=== PATIENT | male | born 1965 | race Caucasian/White ===

== ENCOUNTER → 2021-05-18 15:23 | Outpatient (CLI) | payer BC, SELFPAY ==
[2021-05-18 16:18] LABS: Hemoglobin 13.8 g/dL (13.0-16.5); Mean Corp Hgb Conc 33.7 g/dL (32-36); Mean Corpuscular Hgb 30.3 pg (27.0-32.0); Mean Corpuscular Volume 89.9 fL (80-94); Mean Platelet Vol. 10.2 fl (6.2-12.0); Platelet Count 234 K/mm3 (150-450); RBC Distribution Width SD 42.5 fl (35.1-43.9); Red Blood Count 4.56 M/mm3 (4.6-6.2); White Blood Count 13.9 K/mm3 (4.4-11.0)
[2021-05-18 16:55] LABS: Anion Gap 6 (5-15); BUN 21 mg/dL (7-18); BUN/Creat Ratio 13.7 RATIO (10-20); Calcium,Total 8.7 mg/dL (8.5-10.1); Chloride 106 mmol/L (98-107); Creatinine, Serum 1.53 mg/dL (0.70-1.30); EST Glomerular Filtration Rate 51 mL/min (>60); Est Glom Filt Rate - Afr Amer 61 mL/min (>60); Glucose 114 mg/dL (74-106); Potassium 4.1 mmol/L (3.5-5.1); Sodium Level 139 mmol/L (136-145)
== END ==
PROVIDERS: PCP Family Medicine; Visit Provider Urology
DX: N20.0 Calculus of kidney (principal)
CPT/HCPCS: 36415; 80048; 85027

== ENCOUNTER → 2021-05-26 08:27 | Outpatient (CLI) | payer BC, SELFPAY | PROVIDERS: PCP Family Medicine; Referring Provider Urology; Visit Provider Urology | DX: Z01.810 Encounter for preprocedural cardiovascular examination (principal); N20.0 Calculus of kidney | CPT/HCPCS: 87635; 93005; C9803; U0005; U0003 ==

== ENCOUNTER → 2021-10-13 | Outpatient (CLI) | payer BC, SELFPAY ==
--- NOTE | 2021-10-13 07:03 | CT_ITS ---
EXAM: CT ABDOMEN AND PELVIS WITHOUT INTRAVENOUS CONTRAST CLINICAL INDICATION: CALCULUS OF URETER TECHNIQUE: Helically acquired images were obtained of the abdomen and pelvis without intravenous contrast. This CT exam was performed using one or more of the following dose reduction techniques: automated exposure control, adjustment of the mA and/or kV according to patient size, and/or use of iterative reconstruction technique. This report was created using [employer] report generation technology. RADIATION DOSE: CTDIvol = 24.06 mGy, DLP = 1322.32 mGy-cm COMPARISON: None. FINDINGS: LOWER THORAX: Unremarkable. Lung bases are clear. No cardiomegaly. No significant pericardial effusion. ABDOMEN: LIVER: Unremarkable. Homogeneous. GALLBLADDER AND BILE DUCTS: Unremarkable. No calcified gallstones. No gallbladder distention or wall edema. No intra- or extrahepatic biliary ductal dilation. PANCREAS: Unremarkable. No focal cystic mass. SPLEEN: Unremarkable. Normal size without focal cystic or solid mass. ADRENALS: Unremarkable. No nodules. KIDNEYS AND URETERS: There are 3 punctate intrarenal nonobstructing stones in the left kidney. No hydronephrosis or ureter stone. Tiny single nonobstructing stone in the lower pole right kidney. STOMACH AND BOWEL: Moderate stool in most of the proximal half of the colon, mild gas and stool in the distal colon. No stomach or bowel distention. No focal inflammatory change. PELVIS: APPENDIX: Normal retrocecal appendix. BLADDER: Unremarkable. REPRODUCTIVE: Unremarkable as visualized. No mass. ABDOMEN and PELVIS: INTRAPERITONEAL SPACE: Unremarkable. No ascites or other fluid collection. No free air. BONES/JOINTS: Unremarkable. No suspicious lytic or blastic abnormality. SOFT TISSUES: Moderate annular disc bulge of L4-5 and mild annular disc bulge of L5-S1 with mild facet joint hypertrophic changes at L4-S1. Mild fat-containing left inguinal hernia. VASCULATURE: Unremarkable. Abdominal aorta is non-dilated. LYMPH NODES: Unremarkable. No enlarged lymph nodes. CT/Abdomen/Pelvis without Cont IMPRESSION: 1. Bilateral nephrolithiasis. No hydronephrosis or ureter stone. 2. Small fat-containing left inguinal hernia. 3. Mild degenerative spine changes. Electronically Signed: Karely Gatica MD at 7:33 EDT Reading Location ID and State: [facility] / [place] Tel , Service support ,
== END | disposition home or self-care (01) ==
LOC: CT 07:01
PROVIDERS: PCP Family Medicine; Referring Provider Urology; Visit Provider Urology
DX: N20.1 Calculus of ureter (principal)
CPT/HCPCS: 74176

== ENCOUNTER 2025-03-12 05:48 | Inpatient (IN) | payer BC, SELFPAY ==
[2025-03-12] VITALS (45 sets, daily range): BP systolic 61–116; BP diastolic 38–101; PULSE 79–154; RESP 10–25; TEMP 36.3–37.1; O2SAT 92–98; BMI 43.2
--- NOTE | 2025-03-12 05:53 | EKG12_ITS ---
Test Reason : DYSRHYTHMIA Blood Pressure : */* mmHG Vent. Rate : 157 BPM Atrial Rate : * BPM P-R Int : * ms QRS Dur : 90 ms QT Int : 308 ms P-R-T Axes : * -27 147 degrees QTcB Int : 497 ms Critical Test Result: High HR Atrial fibrillation with rapid ventricular response Minimal voltage criteria for LVH, may be normal variant ( R in aVL ) Septal infarct , age undetermined Marked ST abnormality, possible inferolateral subendocardial injury Abnormal ECG Confirmed by SHENA CALDERON ([id number]), editor & co founder VIKA HUNTER ([id number]) on 03/15/2025 9:07:56 AM Referred By: Confirmed By: SHENA CALDERON
[2025-03-12] MEDS: 0.9% Normal Saline (1000mL) 1,000 ML 999 ML IV (05:59)
[2025-03-12 06:06] LABS: Hematocrit 43.1 % (40-54); Hemoglobin 15.0 g/dL (13.0-16.5); Immature Granulocytes Count 0.010 X10^3/uL (0.0-0.0); Mean Corp Hgb Conc 34.8 g/dL (32-36); Mean Corpuscular Volume 90.0 fL (80-94); Mean Platelet Vol. 10.6 fl (6.2-12.0); NRBC Flagged by Analyzer 0 % (0-5); Platelet Count 230 K/mm3 (150-450); RBC Distribution Width CV 12.6 % (11.6-14.6); RBC Distribution Width SD 41.7 fl (35.1-43.9); Red Blood Count 4.79 M/mm3 (4.6-6.2); White Blood Count 8.7 K/mm3 (4.4-11.0)
--- OUTSIDE RECORDS SUMMARY | 2025-03-12 06:15 | XMS RPT_ITS | CCD ---
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 inhaler due to his asthma. ALso takes zyrtec 10 mg daily.). The patient has been exposed to an individual with similar symptoms. Note for Upper respiratory infection: reviewed by [facility] 06-02-2012 Unclassified (9 sources) Cough - The onset of the cough has been gradual and has been occurring in a persistent pattern for 1 week. The course has been constant. The cough is characterized as productive of white sputum. The amount of sputum is scanty. The cough occurs all the time. The cough is not aggravated by exercise, meals or particular position. Associated symptoms include post-nasal drip, while there is no chest pain, dyspnea, edema, facial puffiness, fever, headache, nasal congestion, night sweats, sinus pain, sinus pressure, sore throat or wheezing. Note for Cough: Patient reports that he had flu like symptoms when his symptoms first started. These have now resolved apart from the cough. 08-05-2024 Results Test Name Value Interpretation Reference Range Facility TESTOSTERONE [CCL]on 024 Testosterone [Mass/Vol] 209 ng/dL Normal 193-824 [facility] Comment on above: Result Comment: A te stosterone level in the 193-320 ng/dL range with associated clinical symptoms is considered low and may indicate hypogonadism (from [facility] 2010 [id number]). Results >320 ng/dL are considered normal. [facility] [employer] [address] [place] [address] Joao Alanis III, M.D. [id number] Performed By: #### 2 [id number] #### [facility],[address] [place], [place] [id number] Laboratory - Chemistry and C hemistry - challengeon 05-02-2024 Testosterone [Mass/Vol] 209 ng/dL Normal 193 - 824 ng/dL [facility], [facility].; [facility]. COMPREHENSIVE METABOLIC PANE [facility] 04-07-2024 Albumin [Mass/Vol] 4.0 g/dL Normal 3.6-5.1 [facility] Comment on above: Performed By: #### 8 99, 30070, 7600, 5363 #### [facility] [place] [address] [employer] Preparer: Gm Johnson MD Albumin/Globulin [Mass ratio] 1.4 {ratio} Normal 1.0-2.5 [facility] Comment on above: Performed By: #### 8 99, 25893, 7600, 5363 #### [facility] [place] [address] [employer] Preparer: Gm Johnson MD ALP [Catalytic activity/Vol] 74 U/L Normal 35-144 [facility] Comment on above: Performed By: #### 8 99, 52272, 7600, 5363 #### [facility] [place] [address] [employer]riger[employer] Preparer: Gm Johnson MD ALT [Catalytic activity/Vol] 21 U/L Normal 9-46 [facility] Comment on above: Performed By: #### 8 99, 66669, 7600, 5363 #### [facility] [place] [address] [employer]riger[employer] Preparer: Gm Johnson MD AST [Catalytic activity/Vol] 20 U/L Normal 10-35 [facility] Comment on above: Performed By: #### 8 99, 58974, 7600, 5363 #### [facility] [address] [place] [address] [employer]iger[employer] Preparer: Gm Johnson MD Bilirubin [Mass/Vol] 0.6 mg/dL Normal 0.2-1.2 [facility] Comment on above: Performed By: #### 8 99, 03386, 7600, 5363 #### [facility] of [address], [address] [place] [address] [employer]iger[employer] Preparer: Gm Johnson MD BUN/CREATININE RATIO SEE NOTE: Normal 6-22 [facility] Comment on above: Result Comment: Not Reported: BUN and Creatinine are within reference range. Performed By: #### 8 99, 85624, 7600, 5363 #### [facility] of [address], [address] [place] [address] [employer] Preparer: Gm Johnson MD Calcium [Mass/Vol] 9.0 mg/dL Normal 8.6-10.3 [facility] Comment on above: Performed By: #### 8 99, 72707, 0, 5363 #### [facility] of [address], [address] [place] [address] Electric [employer]rigerator Preparer: mG Johnson MD Chloride [Moles/Vol] 107 mmol/L Normal 98-110 [facility] Comment on above: Performed By: #### 8 99, 62447, 7600, 5363 #### [facility] of [address], [address] [place] [address] [employer]rigerator Preparer: Gm Johnson MD CO2 [Moles/Vol] 25 mmol/L Normal 20-32 [facility] Comment on above: Performed By: #### 8 99, 92354, 7600, 5363 #### [facility] of [address], [address] [place] [address] Electric [employer]rigerator Preparer: Gm Johnson MD Creatinine [Mass/Vol] 0.77 mg/dL Normal 0.70-1.[address] [facility] Comment on above: Performed By: #### 8 99, 91534, 7600, 5363 #### [facility] of [address], [address] [place] [address] [employer]iger[employer] Preparer: Gm Johnson MD GFR/1.73 sq M.predicted among non-blacks MDRD (S/P/Bld) [Vol rate/Area] 104 mL/min/{1.73_m2} Normal > OR = 60 [facility] Comment on above: Performed By: #### 8 99, 86711, 7600, 5363 #### [facility] [place] [address] [employer]riger[employer] Preparer: Gm Johnson MD Globulin (S) [Mass/Vol] 2.9 g/dL Normal 1.9-3.7 [facility] Comment on above: Performed By: #### 8 99, 28420, 7600, 5363 #### [facility] [place] [address] Electric [employer]riger[employer] Preparer: Gm Johnson MD Glucose [Mass/Vol] 104 mg/dL High 65-99 [facility] Comment on above: Result Comment: Fasting reference interval For someone without known diabetes, a glucose value between 100 and 125 mg/dL is consistent with prediabetes and should be confirmed with a follow-up test. Performed By: #### 8 99, 70762, 7600, 5363 #### [facility] [place] [address] [employer]iger[employer] Preparer: Gm Johnson MD Potassium [Moles/Vol] 4.2 mmol/L Normal 3.5-5.[address] [facility] Comment on above: Performed By: #### 8 , , 7600, 5363 #### [facility] [place] [address] Electric [employer]riger[employer] Preparer: Gm Johnson MD Protein [Mass/Vol] 6.9 g/dL Normal 6.1-8.1 [facility] Comment on above: Performed By: #### 8 99, 16627, 7600, 5363 #### [facility] [address], [address] [place] [address] Electric [employer]rigerator Preparer: Gm Johnson MD Sodium [Moles/Vol] 141 mmol/L Normal 135-146 [facility] Comment on above: Performed By: #### 8 99, 44800, 7600, 5363 #### [facility] [address], [address] [place] [address] Electric Refrigerator Preparer: Gm Johnson MD Urea nitrogen [Mass/Vol] 14 mg/dL Normal 7-25 [facility] Comment on above: Performed By: #### 8 99, 12805, 7600, 5363 #### [facility] [address], [address] [place] [address] Electric [employer]rigerator Preparer: Gm Johnson MD LIPID PANEL, [address] Cholesterol [Mass/Vol] 153 mg/dL Normal <200 [facility] Comment on above: Performed By: #### 8 99, 41911, 7600, 5363 #### [facility] [address], [address] [place] [address] Electric Refrigerator Preparer: Gm Johnson MD Cholesterol in HDL [Mass/Vol] 52 mg/dL Normal > OR = 40 [facility] Comment on above: Performed By: #### 8 99, 53144, 7600, 5363 #### [facility] [address], [address] [place] [address] Electric Refrigerator Preparer: Gm Johnson MD Cholesterol in LDL [Mass/Vol] 83 mg/dL Normal [facility] Comment on above: Result Comment: Refe rence range: <100 Desirable range <100 mg/dL for primary prevention; <70 mg/dL for patients with CHD or diabetic patients with > or = 2 CHD risk factors. LDL-C is now calculated using the Taras-Gatito calculation, which is a validated novel method providing better accuracy than the Friedewald equation in the estimation of LDL-C. Taras SS et al. BATSHEVA. 2013;310(19): 4013-5843 (http://education.Bill.Forward.RedLasso/faq/YJO873) Performed By: #### 8 99, 89386, 7600, 5363 #### [facility] [address], [address] [place] [address] Electric Refrigerator Preparer: Gm Johnson MD Cholesterol.total/Cho lesterol in HDL [Mass ratio] 2.9 {ratio} Normal <5.0 [facility] Comment on above: Performed By: #### 8 , 14958, 0, 5363 #### [facility] [address], [address] [place] [address] Electric Refrigerator Preparer: Gm Johnson MD NON HDL CHOLESTEROL 101 mg/dL (calc) Normal <130 [facility] Comment on above: Result Comment: For patients with diabetes plus 1 major ASCVD risk factor, treating to a non-HDL-C goal of <100 mg/dL (LDL-C of <70 mg/dL) is considered a therapeutic option. Performed By: #### 8 , 30145, 0, 5363 #### [facility] [place] [address] [employer]riger[employer] Preparer: Gm Johnson MD Triglyceride [Mass/Vol] 86 mg/dL Normal <150 [facility] Comment on above: Performed By: #### 8 , 26563, 0, 5363 #### [facility] [place] [address] Electric Refrigerator Preparer: Gm Johnson MD PSA, TOTALon 04-07-2024 PSA, TOTAL 0.34 ng/mL Normal < OR = 4.00 [facility] Comment on above: Result Comment: The total PSA value from this assay system is standardized against the WHO standard. The test result will be approximately 20% lower when compared to the equimolar-standardized total PSA (Lourdes Malone). Comparison of serial PSA results should be interpreted with this fact in mind. This test was performed using the Siemens chemiluminescent method. Values obtained from different assay methods cannot be used interchangeably. PSA levels, regardless of value, should not be interpreted as absolute evidence of the presence or absence of disease. Performed By: #### 8 , 46711, 0, 5363 #### [facility] [place] [address] [employer]riger[employer] Preparer: Gm Johnson MD TSHon 04-07-2024 TSH Qn 2.68 m[IU]/L Normal 0.40-4.50 [facility] Comment on above: Performed By: #### 8 99, 44430, 4917, 7808 #### [facility] [place] [address] [facility], [address] [place] [address] Electric Refrigerator Preparer: Gm Johnson MD Laboratory - Chemistry and C hemistry - challengeon 04-06-2024 Albumin [Mass/Vol] 4.0 g/dL Normal 3.6 - 5.1 g/dL [facility] [employer] Albumin/Globulin [Mass ratio] 1.4 {ratio} Normal 1.0 - 2.5 [facility] [employer] ALP [Catalytic activity/Vol] 74 U/L Normal 35 - 144 U/L [facility], [facility].; [employer] ALT [Catalytic activity/Vol] 21 U/L Normal 9 - 46 U/L [employer] [facility] [employer] AST [Catalytic activity/Vol] 20 U/L Normal 10 - 35 U/L [employer] [employer] Bilirubin [Mass/Vol] 0.6 mg/dL Normal 0.2 - 1 .2 mg/dL [employer] [employer] Calcium [Mass/Vol] 9.0 mg/dL Normal 8.6 - 10. 3 mg/dL [employer] [facility] [employer] Chloride [Moles/Vol] 107 mmol/L Normal 98 - 11 0 mmol/L [facility], [facility] [employer] Cholesterol [Mass/Vol] 153 mg/dL Normal [employer] [employer] Cholesterol in HDL [Mass/Vol] 52 mg/dL Normal [employer] [employer] Cholesterol in LDL [Mass/Vol] 83 mg/dL Normal [employer] [employer] CO2 [Moles/Vol] 25 mmol/L Normal 20 - 32 mmol/L [facility], [facility] [employer] Creatinine [Mass/Vol] 0.77 mg/dL Normal 0.70 - 1.30 mg/dL [facility]; [facility], [facility] GFR/1.73 sq M.predicted among non-blacks MDRD (S/P/Bld) [Vol rate/Area] 104 mL/min/{1.73_m2} Normal [facility]; [facility], [facility] Glucose [Mass/Vol] 104 mg/dL Abnormal 65 - 99 mg/dL [facility]; [facility], [facility] Potassium [Moles/Vol] 4.2 mmol/L Normal 3.5 - 5.3 mmol/L [facility]; [facility], [facility] Protein [Mass/Vol] 6.9 g/dL Normal 6.1 - 8.1 g/dL [facility]; [facility], [facility] Sodium [Moles/Vol] 141 mmol/L Normal 135 - 146 mmol/L [facility]; [facility], [facility] Triglyceride [Mass/Vol] 86 mg/dL Normal [facility]; [facility], [facility] TSH Qn 2.68 m[IU]/L Normal 0.40 - 4.50 {mIU/L} [facility]; [facility], [facility] Urea nitrogen [Mass/Vol] 14 mg/dL Normal 7 - 25 mg/dL [facility]; [facility], [facility] No Panel Informationon 04-06 BUN/CREATININE RATIO SEE NOTE: Normal 6 - 22 [facility]; [facility], [facility] CHOL/HDLC RATIO 2.9 Normal [facility]; [facility], [facility] GLOBULIN 2.9 Normal 1.9 - 3.7 [facility]; [facility], [facility] NON HDL CHOLESTEROL 101 Normal [facility]; [facility], [facility] PSA, TOTAL 0.34 ng/mL Normal [facility]; [facility], [facility] Laboratory - Chemistry and C hemistry - challengeon 03-15-2023 Albumin [Mass/Vol] 4.0 g/dL Normal 3.6 - 5.1 g/dL [facility]; [facility]. Albumin/Globulin [Mass ratio] 1.5 {ratio} Normal 1.0 - 2.5 [facility]. ALP [Catalytic activity/Vol] 69 U/L Normal 35 - 144 U/L [facility].; [facility], [facility]. ALT [Catalytic activity/Vol] 19 U/L Normal 9 - 46 U/L [facility].; [facility], [facility]. AST [Catalytic activity/Vol] 19 U/L Normal 10 - 35 U/L [facility].; [facility]. Bilirubin [Mass/Vol] 0.5 mg/dL Normal 0.2 - 1 .2 mg/dL [facility].; [facility], [facility]. Calcium [Mass/Vol] 8.9 mg/dL Normal 8.6 - 10. 3 mg/dL [facility].; [facility], [facility]. Chloride [Moles/Vol] 104 mmol/L Normal 98 - 11 0 mmol/L [facility].; [employer], [facility]. Cholesterol [Mass/Vol] 152 mg/dL Normal [facility].; [employer], [facility]. Cholesterol in HDL [Mass/Vol] 56 mg/dL Normal [facility].; [facility], [facility]. Cholesterol in LDL [Mass/Vol] 83 mg/dL Normal [facility].; [employer], [facility]. CO2 [Moles/Vol] 26 mmol/L Normal 20 - 32 mmol/L [facility].; [facility]. Creatinine [Mass/Vol] 0.83 mg/dL Normal 0.70 - 1.30 mg/dL [facility].; [employer] [facility], [facility]. GFR/1.73 sq M.predicted among non-blacks MDRD (S/P/Bld) [Vol rate/Area] 103 mL/min/{1.73_m2} Normal [facility].; [employer], [facility]. Glucose [Mass/Vol] 102 mg/dL Abnormal 65 - 99 mg/dL [facility].; [facility], [facility]. Potassium [Moles/Vol] 4.3 mmol/L Normal 3.5 - 5.3 mmol/L [facility]; [facility] Protein [Mass/Vol] 6.7 g/dL Normal 6.1 - 8.1 g/dL [facility]; [facility] Sodium [Moles/Vol] 139 mmol/L Normal 135 - 146 mmol/L [facility]; [facility] Triglyceride [Mass/Vol] 45 mg/dL Normal [facility]; [facility] TSH Qn 2.40 m[IU]/L Normal 0.40 - 4.50 {mIU/L} [facility]; [facility] Urea nitrogen [Mass/Vol] 24 mg/dL Normal 7 - 25 mg/dL [facility]; [facility] No Panel Informationon 03-15 BUN/CREATININE RATIO SEE NOTE: Normal [facility]; [facility] CHOL/HDLC RATIO 2.7 Normal [facility]; [facility] GLOBULIN 2.7 Normal 1.9 - 3.7 [facility]; [facility] NON HDL CHOLESTEROL 96 Normal [facility]; [facility] Laboratory - Chemistry and C hemistry - challengeon 03-19-2022 TSH Qn 2.76 m[IU]/L Normal 0.40 - 4.50 {mIU/L} [facility]; [facility] Abdomen/Pelvis without Conto n 10-13-2021 Abdomen/Pelvis without Cont [facility] [address] [place] [address] Abdomen/Pelvis without Cont MR#: [id number] Acct: [id number] Name: PAULINA WESTBROOK Rep #: [id number] : 1965 M 55 From: Karely Gatica MD PCP: Dr. Nataliia Rollins MD Status: REG CLI Study: Abdomen/Pelvis without Cont Date of Exam: 09/16 03/08 Exam# [id number] Ordering Dr: Patrick Thapa MD EXAM: CT ABDOMEN AND PELVIS WITHOUT INTRAVENOUS CONTRAST CLINICAL INDICATION: CALCULUS OF URETER TECHNIQUE: Helically acquired images were obtained of the abdomen and pelvis without intravenous contrast. This CT exam was performed using one or more of the following dose reduction techniques: automated exposure control, adjustment of the mA and/or kV according to patient size, and/or use of iterative reconstruction technique. This report was created using Parachute report generation technology. RADIATION DOSE: CTDIvol = 24.06 mGy, DLP = 1322.32 mGy-cm COMPARISON: None. FINDINGS: LOWER THORAX: Unremarkable. Lung bases are clear. No cardiomegaly. No significant pericardial effusion. ABDOMEN: LIVER: Unremarkable. Homogeneous. GALLBLADDER AND BILE DUCTS: Unremarkable. No calcified gallstones. No gallbladder distention or wall edema. No intra- or extrahepatic biliary ductal dilation. PANCREAS: Unremarkable. No focal cystic mass. SPLEEN: Unremarkable. Normal size without focal cystic or solid mass. ADRENALS: Unremarkable. No nodules. KIDNEYS AND URETERS: There are 3 punctate intrarenal nonobstructing stones in the left kidney. No hydronephrosis or ureter stone. Tiny single nonobstructing stone in the lower pole right kidney. STOMACH AND BOWEL: Moderate stool in most of the proximal half of the colon, mild gas and stool in the distal colon. No stomach or bowel distention. No focal inflammatory change. PELVIS: APPENDIX: Normal retrocecal appendix. BLADDER: Unremarkable. REPRODUCTIVE: Unremarkable as visualized. No mass. ABDOMEN and PELVIS: INTRAPERITONEAL SPACE: Unremarkable. No ascites or other fluid collection. No free air. BONES/JOINTS: Unremarkable. No suspicious lytic or blastic abnormality. SOFT TISSUES: Moderate annular disc bulge of L4-5 and mild annular disc bulge of L5-S1 with mild facet joint hypertrophic changes at L4-S1. Mild fat-containing left inguinal hernia. VASCULATURE: Unremarkable. Abdominal aorta is non-dilated. LYMPH NODES: Unremarkable. No enlarged lymph nodes. CT/Abdomen/Pelvis without Cont IMPRESSION: 1. Bilateral nephrolithiasis. No hydronephrosis or ureter stone. 2. Small fat-containing left inguinal hernia. 3. Mild degenerative spine changes. Electronically Signed: Karely Gatica MD at 7:33 EDT , CC: Dr. Patrick Thapa MD; Dr. Nataliia Rollins MD [employer] Spike Assembler: Signed Normal [facility] .Auto Diffon 08-08-2021 Basophil, Absolute 0.00 10 3/mcL Normal 0.00-0.27 [facility] ([place]) Comment on above: Performed By: #### C BC, ADIFF, ANEU, BMP, GFR #### [address] [address] Basophils/100 WBC (Bld) 0.7 % Normal 0.0-2.5 [facility] ([place]) Comment on above: Performed By: #### C BC, ADIFF, ANEU, BMP, GFR #### [address] [address] Eosinophil, Absolute 0.30 10 3/mcL Normal 0.00-0.65 A [facility] ([place]) Comment on above: Performed By: #### C BC, ADIFF, ANEU, BMP, GFR #### [address] [address] Eosinophils/100 WBC (Bld) 4.7 % Normal 0.0-6.0 [facility] ([place]) Comment on above: Performed By: #### C BC, ADIFF, ANEU, BMP, GFR #### [address] [address] Lymphocyte, Absolute 1.40 10 3/mcL Normal 0.90-4.32 A [facility] ([place]) Comment on above: Performed By: #### C BC, ADIFF, ANEU, BMP, GFR #### [address] [address] Lymphocytes/100 WBC (Bld) 23.0 % Normal 20.0-40.0 [facility] ([place]) Comment on above: Performed By: #### C BC, ADIFF, ANEU, BMP, GFR #### [address] [address] Monocyte, Absolute 0.70 10 3/mcL Normal 0.09-1.40 [facility] ([place]) Comment on above: Performed By: #### C BC, ADIFF, ANEU, BMP, GFR #### [address] [address] Monocytes/100 WBC (Bld) 10.9 % Normal 2.0-13.0 [facility] ([place]) Comment on above: Performed By: #### C BC, ADIFF, ANEU, BMP, GFR #### [address] [address] Neutrophils/100 WBC (Bld) 60.7 % Normal 50.0-75.0 [facility] ([place]) Comment on above: Performed By: #### C BC, ADIFF, ANEU, BMP, GFR #### [address] [address] .GFRon 08-08-2021 GFR Non- >60 Normal [facility] ([place]) Comment on above: Result Comment: GFR Population mean for , Non- Americans Ages 20-29 = 116 mL/min/1.73 sq.m. Ages 30-39 = 107 mL/min/1.73 sq.m. Ages 40-49 = 99 mL/min/1.73 sq.m. Ages 50-59 = 93 mL/min/1.73 sq.m. Ages 60-69 = 85 mL/min/1.73 sq.m. Ages 70+ = 75 mL/min/1.73 sq.m. Chronic Kidney Disease: Less than 60 mL/min/1.73 square meters End Stage Renal Disease: Less than 15 mL/min/1.73 square meters Performed By: #### C BC, ADIFF, ANEU, BMP, GFR #### [address] [address] GFR >60 Normal [facility] ([place]) Comment on above: Result Comment: GFR Population mean for , Non- Americans Ages 20-29 = 116 mL/min/1.73 sq.m. Ages 30-39 = 107 mL/min/1.73 sq.m. Ages 40-49 = 99 mL/min/1.73 sq.m. Ages 50-59 = 93 mL/min/1.73 sq.m. Ages 60-69 = 85 mL/min/1.73 sq.m. Ages 70+ = 75 mL/min/1.73 sq.m. Chronic Kidney Disease: Less than 60 mL/min/1.73 square meters End Stage Renal Disease: Less than 15 mL/min/1.73 square meters Performed By: #### C BC, ADIFF, ANEU, BMP, GFR #### [address] [address] .NEUABSon 08-08-2021 Neutrophil, Absolute 3.70 10 3/mcL Normal 2.25-8.10 A [facility] ([place]) Comment on above: Performed By: #### C BC, ADIFF, ANEU, BMP, GFR #### [address] [address] BMPon 08-08-2021 BUN/Creatinine Ratio 22.0 ratio Normal 10.0-22.0 [facility] ([place]) Comment on above: Performed By: #### C BC, ADIFF, ANEU, BMP, GFR #### [place] [address] Calcium [Mass/Vol] 9.2 mg/dL Normal 8.4-10.1 [facility] ([place]) Comment on above: Result Comment: No te - New Reference Range in effect 20 Performed By: #### C BC, ADIFF, ANEU, BMP, GFR #### [address] [address] Chloride [Moles/Vol] 104 mmol/L Normal 98-110 [facility] ([place]) Comment on above: Performed By: #### C BC, ADIFF, ANEU, BMP, GFR #### [address] [address] CO2 [Moles/Vol] 32 mmol/L Normal 22-32 [facility] ([place]) Comment on above: Performed By: #### C BC, ADIFF, ANEU, BMP, GFR #### [address] [address] Creatinine [Mass/Vol] 0.82 mg/dL Normal 0.60-1.40 [facility] ([place]) Comment on above: Performed By: #### C BC, ADIFF, ANEU, BMP, GFR #### [address] [address] Electrolyte Balance 3.0 mEq/L Low 4.0-15.0 [facility] ([place]) Comment on above: Performed By: #### C BC, ADIFF, ANEU, BMP, GFR #### [address] [address] Glucose [Mass/Vol] 99 mg/dL Normal 70-110 [facility] ([place]) Comment on above: Performed By: #### C BC, ADIFF, ANEU, BMP, GFR #### [place] [id number] Potassium [Moles/Vol] 4.5 mmol/L Normal 3.5-5.0 [facility] ([place]) Comment on above: Performed By: #### C BC, ADIFF, ANEU, BMP, GFR #### [place] [id number] Sodium [Moles/Vol] 139 mmol/L Normal 136-145 [facility] ([place]) Comment on above: Performed By: #### C BC, ADIFF, ANEU, BMP, GFR #### [address] [address] Urea nitrogen [Mass/Vol] 18.0 mg/dL Normal 8.0-22.0 [facility] ([place]) Comment on above: Performed By: #### C BC, ADIFF, ANEU, BMP, GFR #### [address] [address] CBCon 08-08-2021 Erythrocyte distribution width (RBC) [Ratio] 13.6 % Normal 11.5-15.5 [facility] ([place]) Comment on above: Performed By: #### C BC, ADIFF, ANEU, BMP, GFR #### [address] [address] Hematocrit (Bld) [Volume fraction] 43.4 % Normal 40.0-52.0 [facility] ([place]) Comment on above: Performed By: #### C BC, ADIFF, ANEU, BMP, GFR #### [place] [address] Hgb 14.7 G/dL Normal 13.0-17.5 [facility] ([place]) Comment on above: Performed By: #### C BC, ADIFF, ANEU, BMP, GFR #### [place] [address] MCH (RBC) [Entitic mass] 30.3 pg Normal 27.0-33.0 [facility] ([place]) Comment on above: Performed By: #### C BC, ADIFF, ANEU, BMP, GFR #### [place] [address] MCHC 33.9 G/dL Normal 32.0-36.0 [facility] ([place]) Comment on above: Performed By: #### C BC, ADIFF, ANEU, BMP, GFR #### [place] [address] MCV (RBC) [Entitic vol] 89.3 fL Normal 81.0-100.0 [facility] ([place]) Comment on above: Performed By: #### C BC, ADIFF, ANEU, BMP, GFR #### [place] [address] Platelet 243 10 3/mcL Normal 150-450 [facility] ([place]) Comment on above: Performed By: #### C BC, ADIFF, ANEU, BMP, GFR #### [place] [address] Platelet mean volume (Bld) [Entitic vol] 8.5 fL Normal 6.4-10.5 [facility] ([place]) Comment on above: Performed By: #### C BC, ADIFF, ANEU, BMP, GFR #### [place] [address] RBC 4.86 10 6/mcL Normal 4.50-6.00 [facility] ([place]) Comment on above: Performed By: #### C BC, ADIFF, ANEU, BMP, GFR #### [place] [address] WBC 6.10 10 3/mcL Normal 4.50-10.80 [facility] ([place]) Comment on above: Performed By: #### C BC, BARBIE, ANEU, BMP, GFR #### [facility] [address] [place], [place] [address] COVID 19, JESSICA WCH(RT COLLECT )on 05-26-2021 SARS-CoV-2 (COVID-19) RNA JESSICA+probe Ql (Unsp spec) Not detected Normal Not Detect [facility] Comment on above: Result Comment: Norm al Reference Range: Not Detected Method:(RT-PCR) real-time reverse transcriptase PCR [employer] Instrument *The Food and Drug Administration (FDA) has issued an Emergency Use Authorization (EAU) for the [employer] SARS-CoV-2 Assay for the rapid detection of the virus that causes COVID-19. This test has been validated, but the FDAs independent review of this validation is pending. *Negative results do not preclude infection and should not be used as the sole basis for treatment or patient management. Optimum specimen types and timing for peak viral levels during infections caused by SARS-CoV-2 have not been determined. Collection of multiple specimens from the same patient may be necessary to detect the virus. The possibility of a false negative result should be considered if the patient has clinical presentation or has had recent exposure. Performed By: #### L 3400.2405 #### [facility] [address] [place], [address] Basic Metabolic Profile (BMP )on 05-18-2021 BUN/CRE 13.7 RATIO Normal 10-20 [facility] Comment on above: Order Comment: CBC Performed By: #### L 100.0500, L500.2500 #### [facility] [address] [place], [address] CA,Total 8.7 mg/dL Normal 8.5-10.1 [facility] Comment on above: Order Comment: CBC Performed By: #### L 100.0500, L500.2500 #### [facility] [address] [place], [address] Chloride [Moles/Vol] 106 mmol/L Normal 98-107 [facility] Comment on above: Order Comment: CBC Performed By: #### L 100.0500, L500.2500 #### [facility] [address] [place], [address] CO2 [Moles/Vol] 27.0 mmol/L Normal 21.0-32.0 [facility] Comment on above: Order Comment: CBC Performed By: #### L 100.0500, L500.2500 #### [facility] [address] [place], [address] Creatinine [Mass/Vol] 1.53 mg/dL High 0.70-1.30 [facility] Comment on above: Order Comment: CBC Result Comment: The validity of the calculated GFR GFRAA in patients over 70 years has not been determined. Clinical correlation is essential. Performed By: #### L 100.0500, L500.2500 #### [facility] [address] [place], [address] EST GFR - AA 61 mL/min Normal >60 [facility] Comment on above: Order Comment: CBC Result Comment: Afri can Andorran GFR Calc Performed By: #### L 100.0500, L500.2500 #### [facility] [address] [place], [address] GAP 6 Normal 5-15 [facility] Comment on above: Order Comment: CBC Performed By: #### L 100.0500, L500.2500 #### [facility] [address] [place], [address] GFR/1.73 sq M.predicted among non-blacks MDRD (S/P/Bld) [Vol rate/Area] 51 mL/min/{1.73_m2} Low >60 [facility] Comment on above: Order Comment: CBC Result Comment: Non- GFR Calc Performed By: #### L 100.0500, L500.2500 #### [facility] [address] [place], [address] Glucose [Mass/Vol] 114 mg/dL High 74-106 [facility] Comment on above: Order Comment: CBC Result Comment: Fast ing Glucose result from 100 to 125 mg/dL suggests IMPAIRED HOMEOSTASIS per A.D.A. criteria. Please note revised GLUCOSE reference range effective 2017. Performed By: #### L 100.0500, L500.2500 #### [facility] [address] [place], [address] Potassium [Moles/Vol] 4.1 mmol/L Normal 3.5-5.1 [facility] Comment on above: Order Comment: CBC Performed By: #### L 100.0500, L500.2500 #### [facility] [address] [place], [address] Sodium [Moles/Vol] 139 mmol/L Normal 136-145 [facility] Comment on above: Order Comment: CBC Performed By: #### L 100.0500, L500.2500 #### [facility] [address] [place], [address] Urea nitrogen [Mass/Vol] 21 mg/dL High 7-18 [facility] Comment on above: Order Comment: CBC Performed By: #### L 100.0500, L500.2500 #### [facility] [address] [place], [address] CBC-Complete Blood Cnt No Di ffon 05-18-2021 Erythrocyte distribution width (RBC) [Ratio] 13.0 % Normal 11.6-14.6 [facility] Comment on above: Performed By: #### L 100.0500, L500.2500 #### [facility] [address] [place], [address] Hematocrit (Bld) [Volume fraction] 41.0 % Normal 40-54 [facility] Comment on above: Performed By: #### L 100.0500, L500.2500 #### [facility] [address] [place], [address] Hemoglobin (Bld) [Mass/Vol] 13.8 g/dL Normal 13.0-16.5 [facility] Comment on above: Performed By: #### L 100.0500, L500.2500 #### [facility] [address] [place], [address] MCH (RBC) [Entitic mass] 30.3 pg Normal 27.0-32.0 [facility] Comment on above: Performed By: #### L 100.0500, L500.2500 #### [facility] [address] [place], [address] MCHC (RBC) [Mass/Vol] 33.7 g/dL Normal 32-36 [facility] Comment on above: Performed By: #### L 100.0500, L500.2500 #### [facility] [address] [place], [address] MCV (RBC) [Entitic vol] 89.9 fL Normal 80-94 [facility] Comment on above: Performed By: #### L 100.0500, L500.2500 #### [facility] [address] [place], [address] Platelet mean volume (Bld) [Entitic vol] 10.2 fL Normal 6.2-12.0 [facility] Comment on above: Performed By: #### L 100.0500, L500.2500 #### [facility] [address] [place], [address] Platelets (Bld) [#/Vol] 234 10*3/uL Normal 150-450 [facility] Comment on above: Performed By: #### L 100.0500, L500.2500 #### [facility] [address] [place], [address] RBC (Bld) [#/Vol] 4.56 10*6/uL Low 4.6-6.2 [facility] Comment on above: Performed By: #### L 100.0500, L500.2500 #### [facility] [address] [place], [address] RDW SD 42.5 fl Normal 35.1-43.9 [facility] Comment on above: Performed By: #### L 100.0500, L500.2500 #### [facility] [address] [place], [address] WBC (Bld) [#/Vol] 13.9 10*3/uL High 4.4-11.0 [facility] Comment on above: Performed By: #### L 100.0500, L500.2500 #### [facility] [address] [place], [address] Laboratory - Chemistry and C hemistry - challengeon 05-16-2021 Bilirubin Ql (U) Negative Normal [facility] [employer].; [employer], [email or web address]. Ketones Ql (U) Negative Normal [facility].; [employer] [facility], [email or web address]. pH (U) 7.0 [pH] Normal [facility].; [employer], [email or web address]. Specific gravity (U) [Rel density] 1.020 Normal [employer] [employer] [facility].; [employer]. Urobilinogen Qn (U) 1.0 mg/dL Normal [facility] Arrogene [facility].; [employer], [email or web address]. Laboratory - Hematology and Cell countson 05-16-2021 Hemoglobin Ql (U) moderate Abnormal [employer] [facility].; [employer]. Laboratory - Specimen inform ationon 05-16-2021 Appearance (U) clear Normal [facility].; [employer], [email or web address]. Color (U) yellow Normal [employer] Laboratory - Urinalysison Glucose Test strip (U) [Mass/Vol] Negative Normal [employer]. Leukocyte esterase Test strip Ql (U) Negative Normal [employer].; [employer]. Nitrite Ql (U) Negative Normal [facility].; [employer] Protein Ql (U) trace Normal [facility].; [employer], [email or web address]. Laboratory - Chemistry and C hemistry - challengeon 11-25-2020 TSH Qn 1.65 m[IU]/L Normal 0.40 - 4.50 {mIU/L} [employer] Final Surgical Pathology Rep [facility] 11-09-2020 Final Surgical Pathology Report . 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 B) COLON, 60 CM, BIOPSY: HYPERPLASTIC POLYP. C) CECUM, BIOPSY: HYPERPLASTIC POLYP. COMMENT: [facility] - A# [id number] CLINICAL INFORMATION: SCREEN FOR COLON CANCER SPECIMEN: A COLON BIOPSY @ 45 CM B COLON BIOPSY @ 60 CM C CECUM BIOPSY GROSS DESCRIPTION: A. Received in formalin, labeled with the patients name, Case #[id number], and 45 cm contents of the container are filtered into a filter bag to reveal 2 possible tissue fragments measuring 0.2 to 0.3 cm admixed with a food material. TS -1 B. Received in formalin labeled 60 cm are 2 gilmore tissue fragments measuring 0.1 and 0.2 cm. TS -1. C. Received in formalin labeled cecum are 2 gilmore tissue fragments both measuring 0.3 cm. TS -1. Dictated by KATHIA CR MICROSCOPIC DESCRIPTION: A,B&C) Slides reviewed. Electronically Signed by Pathology Report verified by [facility] Electronically signed by CHRIS CONCEPCION MD Sign out Date: 11/09/2020 08:35 Performing Lab: [facility], [address] [place] [address] ([place]) Comment on above: Performed By: #### S PFR #### [place] [address] Laboratory - Chemistry and C hemistry - challengeon 08-12-2020 Albumin [Mass/Vol] 4.4 g/dL Normal 3.6 - 5.1 g/dL [facility], Inc[employer] Albumin/Globulin [Mass ratio] 1.5 {ratio} Normal 1.0 - 2.5 [facility], [facility].; [facility], Inc[employer] ALP [Catalytic activity/Vol] 65 U/L Normal 35 - 144 U/L [facility], [facility].; [employer] [facility], Inc[employer] ALT [Catalytic activity/Vol] 27 U/L Normal 9 - 46 U/L [facility], [facility].; [employer] [facility], Inc[employer] AST [Catalytic activity/Vol] 23 U/L Normal 10 - 35 U/L [facility], [facility].; [employer] [facility], Inc[employer] Bilirubin [Mass/Vol] 0.7 mg/dL Normal 0.2 - 1 .2 mg/dL [facility], [facility].; [employer] Calcium [Mass/Vol] 9.2 mg/dL Normal 8.6 - 10. 3 mg/dL [facility], [facility].; [employer] Chloride [Moles/Vol] 106 mmol/L Normal 98 - 11 0 mmol/L [facility], [facility].; [employer] Cholesterol [Mass/Vol] 225 mg/dL Abnormal [facility], [facility].; [employer] Cholesterol in HDL [Mass/Vol] 49 mg/dL Normal [facility] [employer] [facility], Inc.; [employer], [employer] Cholesterol in LDL [Mass/Vol] 153 mg/dL Abnormal [facility] [employer] [facility], [facility].; [employer] CO2 [Moles/Vol] 27 mmol/L Normal 20 - 32 mmol/L [facility], [facility].; [employer] Creatinine [Mass/Vol] 0.77 mg/dL Normal 0.70 - 1.33 mg/dL [facility], [facility].; [employer] GFR/1.73 sq M.predicted among blacks MDRD (S/P/Bld) [Vol rate/Area] 120 mL/min/{1.73_m2} Normal [facility]; [facility] Glucose [Mass/Vol] 85 mg/dL Normal 65 - 99 mg/dL [facility]; [facility], [facility] Potassium [Moles/Vol] 4.3 mmol/L Normal 3.5 - 5.3 mmol/L [facility]; [facility], [facility] Protein [Mass/Vol] 7.3 g/dL Normal 6.1 - 8.1 g/dL [facility]; [facility], [facility] Sodium [Moles/Vol] 140 mmol/L Normal 135 - 146 mmol/L [facility]; [facility], [facility] Triglyceride [Mass/Vol] 116 mg/dL Normal [facility]; [facility], [facility] TSH Qn 6.44 m[IU]/L Abnormal 0.40 - 4.50 {mIU/L} [facility]; [facility], [facility] Urea nitrogen [Mass/Vol] 16 mg/dL Normal 7 - 25 mg/dL [facility]; [facility], [facility] No Panel Informationon 08-12 BUN/CREATININE RATIO NOT APPLICABLE Normal 6 - 22 [facility]; [facility], [facility] CHOL/HDLC RATIO 4.6 Normal [facility]; [facility], [facility] eGFR NON-AFR. MONTENEGRIN 104 Normal [facility]; [facility], [facility] GLOBULIN 2.9 Normal 1.9 - 3.7 [facility]; [facility], [facility] NON HDL CHOLESTEROL 176 Abnormal [facility]; [facility], [facility] TESTOSTERONE, FREE 30.3 pg/mL Abnormal 46.0 - 22 4.0 pg/mL [facility]; [facility], [facility] Laboratory - Chemistry and C hemistry - challengeon 11-26-2017 Cholesterol [Mass/Vol] 197 mg/dL Normal 0 - 200.0 mg/dL [facility]; [facility], Inc[employer] Cholesterol in HDL [Mass/Vol] 37 mg/dL Normal 30.0 - 40.0 mg/dL [facility]; [facility] Cholesterol in LDL [Mass/Vol] 138 mg/dL Abnormal 50.0 - 130.0 mg/dL [facility].; [facility] Cholesterol non HDL [Mass/Vol] 160 mg/dL Normal [facility]; [facility] Cholesterol.total/Cho lesterol in HDL [Mass ratio] 3.8 {ratio} Normal 0 - 5.0 [facility]; [facility] Glucose Glucometer (BldC) [Moles/Vol] 94 Normal 60 - 120 [facility]; [facility] Triglyceride [Mass/Vol] 114 mg/dL Normal 40 - 150 mg/dL [facility]; [facility] Laboratory - Microbiology an d Antimicrobial susceptibilityon 06-02-2012 FLUAV Ag IA Ql (Throat) Negative Normal [facility]; [facility] Vital Signs Date Time Vital Sign Value Performing Clinician Facility 10-12-2024 08:55-0400 Body height 190.5 cm Susan Fisher LPN [facility]; [facility] 10-12-2024 08:55-0400 Body mass index (BMI) [Ratio] 42.5 kg/m2 Susan Fisher LPN [facility]; [facility] 10-12-2024 08:55-0400 Body surface area Derived from formula 2.75 m2 Susan Fisher LPN [facility]; [facility] 10-12-2024 08:55-0400 Body weight 154.22 kg Susan Fisher LPN [facility]; [facility] 10-12-2024 08:55-0400 Diastolic blood pressure 69 mm[Hg] Susan Fisher LPN [facility]; [facility] [employer] [facility] Comment on above: Patient Position: Sitting; Cuff Location : Left Arm; Cuff Size: Standard 10-12-2024 08:55-0400 Heart rate 76 /min Susan Fisher LPN [facility].; [employer]. Comment on above: Pattern: Regular 10-12-2024 08:55-0400 Systolic blood pressure 106 mm[Hg] Susan Fisher LPN [facility].; [employer]. Comment on above: Patient Position: Sitting; Cuff Location : Left Arm; Cuff Size: Standard 08-05-2024 15:06-0500 Body height 190.5 cm Valarie Villegas MA [facility].; [employer]. 08-05-2024 15:06-0500 Body mass index (BMI) [Ratio] 43.78 kg/m2 Valarie Villegas MA [facility].; [employer]. 08-05-2024 15:06-0500 Body surface area Derived from formula 2.78 m2 Valarie Villegas MA [facility].; [employer]. 08-05-2024 15:06-0500 Body weight 158.87 kg Valarie Villegas MA [facility].; [employer]. 08-05-2024 15:06-0500 Diastolic blood pressure 80 mm[Hg] Valarie Villegas MA [employer] [facility].; [employer]. Comment on above: Patient Position: Sitting; Cuff Location : Left Arm; Cuff Size: Standard 08-05-2024 15:06-0500 Heart rate 99 /min Valarie Villegas MA [facility].; [employer]. Comment on above: Pattern: Regular 08-05-2024 15:06-0500 Inhaled oxygen concentration 21 % Valarie Villegas MA [employer] [facility].; [employer]. Comment on above: Room air 08-05-2024 15:06-0500 SaO2% (BldA) [Mass fraction] 98 % Valarie Villegas MA [facility] [employer] [facility].; [employer]. 08-05-2024 15:06-0500 Systolic blood pressure 139 mm[Hg] Valarie Villegas MA [employer] [facility].; [employer]. Comment on above: Patient Position: Sitting; Cuff Location : Left Arm; Cuff Size: Standard 04-13-2024 09:03-0400 Body height 190.5 cm Lui Schmidt ERIC [facility], [facility] 04-13-2024 09:03-0400 Body mass index (BMI) [Ratio] 42.37 kg/m2 Lui Schmidt CREDIT RISK MODELER [facility], [facility].; [employer] [facility], Inc[employer] 04-13-2024 09:03-0400 Body surface area Derived from formula 2.75 m2 Lui Schmidt CREDIT RISK MODELER [facility], Inc.; [employer] [facility], [facility]. 04-13-2024 09:03-0400 Body weight 153.77 kg Lui Schmidt CREDIT RISK MODELER [facility], [facility].; [employer] [facility], Inc[facility] 04-13-2024 09:03-0400 Diastolic blood pressure 67 mm[Hg] Lui Schmidt CREDIT RISK MODELER [facility], [facility].; [employer] [facility], Inc[facility] Comment on above: Patient Position: Sitting; Cuff Location : Left Arm; Cuff Size: Standard 04-13-2024 09:03-0400 Heart rate 77 /min Lui Schmidt CREDIT RISK MODELER [facility], [facility].; [employer] [facility], Inc[facility] Comment on above: Pattern: Regular 04-13-2024 09:03-0400 Systolic blood pressure 110 mm[Hg] Lui Schmidt CREDIT RISK MODELER [facility], [facility].; [employer] [facility], [facility] Comment on above: Patient Position: Sitting; Cuff Location : Left Arm; Cuff Size: Standard 10-08-2023 07:45-0400 Body height 190.5 cm Gabriela Tripp Marnie CREDIT RISK MODELER [facility], [facility].; [employer] [facility], [facility] 10-08-2023 07:45-0400 Body mass index (BMI) [Ratio] 44.12 kg/m2 Jillian Marnie CR[employer]ISK [employer]DELER [facility].; [employer] [facility], Inc[facility] 10-08-2023 07:45-0400 Body surface area Derived from formula 2.79 m2 Jillian Stuckey CR[employer]K [employer]DELER [facility], [facility].; [employer] [facility], Inc[facility] 10-08-2023 07:45-0400 Body weight 160.12 kg Jillian Stuckey [facility], [facility].; [facility], [facility]. 10-08-2023 07:45-0400 Diastolic blood pressure 71 mm[Hg] Gabriela Dye CREDIT RISK MODELER [facility], [facility].; [facility], [email or web address]. Comment on above: Patient Position: Sitting; Cuff Location : Left Arm; Cuff Size: Large 10-08-2023 07:45-0400 Heart rate 80 /min Gabriela Dye CREDIT RISK MODELER [facility].; [employer] [facility], [email or web address]. Comment on above: Pattern: Regular 10-08-2023 07:45-0400 Systolic blood pressure 126 mm[Hg] Gabriela Dye [facility], [facility].; [employer] [facility], Inc[facility] Comment on above: Patient Position: Sitting; Cuff Location : Left Arm; Cuff Size: Large 03-22-2023 10:48-0400 Body weight 156.04 kg Lui Brayan CREDIT RISK MODELER [facility].; [facility], [facility]. 03-22-2023 10:48-0400 Diastolic blood pressure 64 mm[Hg] Lui Brayan [facility], [facility].; [employer], [email or web address]. Comment on above: Patient Position: Sitting; Cuff Location : Left Arm; Cuff Size: Standard 03-22-2023 10:48-0400 Heart rate 111 /min Lui Brayan CR[employer]ISK [employer]DELER [facility].; [employer], [email or web address]. Comment on above: Pattern: Regular 03-22-2023 10:48-0400 Systolic blood pressure 111 mm[Hg] Luiraphael Schmidt [facility], [facility].; [employer] [facility], [email or web address]. Comment on above: Patient Position: Sitting; Cuff Location : Left Arm; Cuff Size: Standard 09-21-2022 09:23-0400 Body height 190.5 cm Susan Garza MA [facility], [facility].; [facility], [facility]. 09-21-2022 09:23-0400 Body mass index (BMI) [Ratio] 41.87 kg/m2 Susan Garza MA [facility], [facility].; [employer] [facility], [facility]. 09-21-2022 09:23-0400 Body surface area Derived from formula 2.73 m2 Susan Garza MA [facility], [facility].; [facility], [facility]. 09-21-2022 09:23-0400 Body weight 151.96 kg Susan Garza MA [facility], [facility] [facility].; [facility], [facility]. 09-21-2022 09:23-0400 Diastolic blood pressure 79 mm[Hg] Susan Garza MA [facility], [facility].; Stuart Arrogene [facility], [email or web address]. Comment on above: Patient Position: Sitting; Cuff Location : Left Arm; Cuff Size: Standard 09-21-2022 09:23-0400 Heart rate 76 /min Susan Garza MA [facility], [facility].; Stuart [employer], [email or web address]. Comment on above: Pattern: Regular 09-21-2022 09:23-0400 Systolic blood pressure 127 mm[Hg] Susan Garza MA [facility], [facility].; Stuart Arrogene [facility], [email or web address]. Comment on above: Patient Position: Sitting; Cuff Location : Left Arm; Cuff Size: Standard 03-19-2022 15:08-0400 Body height 190.5 cm [facility].; Stuart Arrogene [facility], [email or web address]. 03-19-2022 15:08-0400 Body mass index (BMI) [Ratio] 41.37 kg/m2 [facility] [place] [facility], [facility].; Stuart Arrogene [facility], Inc[employer] 03-19-2022 15:08-0400 Body surface area Derived from formula 2.72 m2 [facility], [facility].; Stuart Arrogene [facility], [facility]. 03-19-2022 15:08-0400 Body weight 150.14 kg [facility], [facility].; [employer], [email or web address]. 03-19-2022 15:08-0400 Diastolic blood pressure 76 mm[Hg] [facility] [place] [facility], [facility].; [employer], [email or web address]. Comment on above: Patient Position: Sitting; Cuff Location : Left Arm; Cuff Size: Large 03-19-2022 15:08-0400 Heart rate 92 /min Jillian [place] [facility], [facility].; [employer]. Comment on above: Pattern: Regular 03-19-2022 15:08-0400 Systolic blood pressure 117 mm[Hg] Gabriela Dye ERIC [facility], [facility].; Stuart Arrogene [facility]. Comment on above: Patient Position: Sitting; Cuff Location : Left Arm; Cuff Size: Large 05-16-2021 11:31-0500 Body height 190.5 cm Susan Fisher LPN [facility], [facility].; [facility], Inc[facility] 05-16-2021 11:31-0500 Body mass index (BMI) [Ratio] 43.37 kg/m2 Susan Fisher LPN [facility], [facility].; Stuart [employer], [facility]. 05-16-2021 11:31-0500 Body surface area Derived from formula 2.77 m2 Susan Fisher LPN [facility], [facility].; [employer], [email or web address]. 05-16-2021 11:31-0500 Body temperature 98.1 [degF] Susan Fisher LPN [facility], [facility].; [employer], [email or web address]. Comment on above: Method: Tympanic 05-16-2021 11:31-0500 Body weight 157.4 kg Susan Fisher LPN [facility], [facility].; Stuart Arrogene [facility], [facility]. 05-16-2021 11:31-0500 Diastolic blood pressure 86 mm[Hg] Susan Fisher LPN [facility], [facility].; [employer], [email or web address]. Comment on above: Patient Position: Sitting; Cuff Location : Left Arm; Cuff Size: Standard 05-16-2021 11:31-0500 Heart rate 94 /min Susan Fisher LPN [facility], [facility].; [employer]. Comment on above: Pattern: Regular 05-16-2021 11:31-0500 Systolic blood pressure 131 mm[Hg] Susan Fisher LPN [facility], [facility].; [employer]. Comment on above: Patient Position: Sitting; Cuff Location : Left Arm; Cuff Size: Standard 08-19-2020 08:45-0500 Body height 190.5 cm Nirmala Boone RN [facility], [facility].; [employer], [email or web address]. 08-19-2020 08:45-0500 Body mass index (BMI) [Ratio] 44.5 kg/m2 Nirmala Boone RN [facility], [facility].; Stuart Arrogene [facility]. 08-19-2020 08:45-0500 Body surface area Derived from formula 2.8 m2 Nirmala Boone RN [facility], [facility].; [employer], [facility]. 08-19-2020 08:45-0500 Body weight 161.48 kg Nirmala Boone RN [facility], [facility].; [employer] Ar[employer]e [facility], [facility]. 08-19-2020 08:45-0500 Diastolic blood pressure 76 mm[Hg] Nirmala Boone RN [facility], [facility].; Stuart Arrogene [facility], [email or web address]. Comment on above: Patient Position: Sitting; Cuff Location : Left Arm; Cuff Size: Large 08-19-2020 08:45-0500 Heart rate 83 /min Nirmala Boone RN [facility], [facility].; [employer]. Comment on above: Pattern: Regular 08-19-2020 08:45-0500 Systolic blood pressure 125 mm[Hg] Nirmala Boone RN [facility], [facility].; Stuart Arrogene [facility]. Comment on above: Patient Position: Sitting; Cuff Location : Left Arm; Cuff Size: Large 07-29-2020 09:57-0500 Body height 190.5 cm Amparo Enciso LPN [facility], [facility].; [employer] Ar[employer] [facility], [facility]. 07-29-2020 09:57-0500 Body mass index (BMI) [Ratio] 44.37 kg/m2 Amparo Enciso LPN [facility], [facility].; Stuart Arrogene [facility], [facility]. 07-29-2020 09:57-0500 Body surface area Derived from formula 2.8 m2 Amparo Enciso LPN [facility], [facility].; [employer] Ar[employer] [facility], [facility]. 07-29-2020 09:57-0500 Body temperature 97 [degF] Amparo Enciso LPN [facility], [facility].; [employer], [email or web address]. Comment on above: Method: Tympanic 07-29-2020 09:57-0500 Body weight 161.03 kg Amparo Enciso LPN [email or web address] 07-29-2020 09:57-0500 Diastolic blood pressure 99 mm[Hg] Amparo Zaugg CREDIT RISK MODELER [employer].; [employer] Comment on above: Patient Position: Sitting; Cuff Location : Left Arm; Cuff Size: Standard 07-29-2020 09:57-0500 Heart rate 87 /min Amparo Zaugg [employer]K [employer] Comment on above: Pattern: Regular 07-29-2020 09:57-0500 Systolic blood pressure 151 mm[Hg] Amparo Zaugg CREDIT [employer]ISK MO[employer]ER [email or web address] Comment on above: Patient Position: Sitting; Cuff Location : Left Arm; Cuff Size: Standard 11-26-2017 08:47-0400 Body height 190.5 cm Nataliia Rollins MD Work Phone: [email or web address] 11-26-2017 08:47-0400 Body mass index (BMI) [Ratio] 42.25 kg/m2 Nataliia Rollins MD Work Phone: [employer].; [email or web address] 11-26-2017 08:47-0400 Body surface area Derived from formula 2.74 m2 Nataliia Rollins MD Work Phone: [employer].; [email or web address] 11-26-2017 08:47-0400 Body weight 153.32 kg Nataliia Rollins MD Work Phone: [employer].; [employer] 11-26-2017 08:47-0400 Diastolic blood pressure 70 mm[Hg] Nataliia Rollins MD Work Phone: [employer].; [employer]. Comment on above: Patient Position: Sitting; Cuff Location : Left Arm; Cuff Size: Large 11-26-2017 08:47-0400 Heart rate 86 /min Nataliia Rollins MD Work Phone: [employer].; [employer]. Comment on above: Pattern: Regular 11-26-2017 08:47-0400 Systolic blood pressure 132 mm[Hg] Nataliia Rollins MD Work Phone: [facility].; [employer] [facility]. Comment on above: Patient Position: Sitting; Cuff Location : Left Arm; Cuff Size: Large 09-11-2016 09:04-0400 Body height 190.5 cm Gabriela Dye [facility], Inc.; [employer]. 09-11-2016 09:04-0400 Body mass index (BMI) [Ratio] 39.75 kg/m2 Gabriela Dye [facility], Inc.; [employer], [email or web address]. 09-11-2016 09:04-0400 Body surface area Derived from formula 2.67 m2 Gabriela Dye [facility], Inc.; [employer]. 09-11-2016 09:04-0400 Body temperature 99.6 [degF] JillianJosee Dye [facility] Arrogene [facility].; [employer]. Comment on above: Method: Tympanic 09-11-2016 09:04-0400 Body weight 144.24 kg Gabriela Dye [facility], Inc.; [email or web address]. 09-11-2016 09:04-0400 Diastolic blood pressure 83 mm[Hg] Gabriela Dye [facility], Inc.; [employer]. Comment on above: Patient Position: Sitting; Cuff Location : Left Arm; Cuff Size: Large 09-11-2016 09:04-0400 Heart rate 105 /min Gabriela Dye [facility] Arrogene [facility], [email or web address].; [employer]. Comment on above: Pattern: Regular 09-11-2016 09:04-0400 Inhaled oxygen concentration 20 % JillianJosee Dye [facility], Inc.; [employer]. Comment on above: Room air 09-11-2016 09:04-0400 Inhaled oxygen concentration 21 % Gabriela Dye [facility] Arrogene [facility], [email or web address].; [employer]. Comment on above: Room air 09-11-2016 09:04-0400 SaO2% (BldA) [Mass fraction] 95 % Gabriela Dye CREDIT RISK MODELER [facility], Inc.; [email or web address]. 09-11-2016 09:04-0400 Systolic blood pressure 138 mm[Hg] Gabriela Dye LPN [facility], Inc.; [email or web address]. Comment on above: Patient Position: Sitting; Cuff Location : Left Arm; Cuff Size: Large 01-03-2016 14:30-0400 Body height 190.5 cm Gabriela Dye [facility], Inc.; [email or web address]. 01-03-2016 14:30-0400 Body mass index (BMI) [Ratio] 41.62 kg/m2 Gabriela Dye [facility], Inc.; [email or web address]. 01-03-2016 14:30-0400 Body surface area Derived from formula 2.73 m2 Gabriela Dye [facility], Inc.; [email or web address]. 01-03-2016 14:30-0400 Body weight 151.05 kg Gabriela Dye [facility] Arrogene [facility], Inc.; [email or web address]. 01-03-2016 14:30-0400 Diastolic blood pressure 83 mm[Hg] Gabriela Dye LPN [facility], Inc.; [employer]. Comment on above: Patient Position: Sitting; Cuff Location : Left Arm; Cuff Size: Large 01-03-2016 14:30-0400 Heart rate 89 /min Gabriela Dye [facility], [facility].; [employer]. Comment on above: Pattern: Regular 01-03-2016 14:30-0400 Systolic blood pressure 134 mm[Hg] Gabriela Dye [facility] Arrogene [facility], Inc.; [employer]. Comment on above: Patient Position: Sitting; Cuff Location : Left Arm; Cuff Size: Large 01-05-2014 14:31-0400 Body height 190.5 cm Gabriela Dye [facility], Inc.; [employer]. 01-05-2014 14:31-0400 Body mass index (BMI) [Ratio] 38.5 kg/m2 Gabriela Dye LPN [facility], Inc.; [employer] [facility], Inc[facility] 01-05-2014 14:31-0400 Body surface area Derived from formula 2.64 m2 Gabriela Dye LPN [facility], Inc.; [employer] 01-05-2014 14:31-0400 Body temperature 97 [degF] Gabriela Dye CREDIT RISK MODELER [facility], Inc.; [email or web address]. Comment on above: Method: Tympanic 01-05-2014 [id number] Body weight 139.71 kg Gabriela Dye CREDIT [employer]ISK MO[employer]ER [facility], Inc.; [employer], [email or web address]. 01-05-2014 14:31-0400 Diastolic blood pressure 100 mm[Hg] Gabriela Dye LPN [facility], Inc.; [email or web address]. Comment on above: Patient Position: Sitting; Cuff Location : Left Arm; Cuff Size: Large 01-05-2014 14:31-0400 Heart rate 81 /min Gabriela Dye LPN [facility], Inc.; [email or web address]. Comment on above: Pattern: Regular 01-05-2014 14:31-0400 Systolic blood pressure 158 mm[Hg] Gabriela Dye LPN [facility], Inc.; [email or web address]. Comment on above: Patient Position: Sitting; Cuff Location : Left Arm; Cuff Size: Large 07-20-2013 08:55-0500 Body weight 141.52 kg Tierra Darnell LPN [facility], Inc.; [email or web address]. 07-20-2013 08:55-0500 Diastolic blood pressure 80 mm[Hg] Tierra Darnell LPN [facility], [email or web address].; [email or web address]. Comment on above: Patient Position: Sitting; Cuff Location : Left Arm; Cuff Size: Standard 07-20-2013 08:55-0500 Heart rate 88 /min Tierra Darnell LPN [facility], Inc.; [email or web address]. Comment on above: Pattern: Regular 07-20-2013 08:55-0500 Systolic blood pressure 137 mm[Hg] Tierra Darnell LPN [facility], Inc.; [employer]. Comment on above: Patient Position: Sitting; Cuff Location : Left Arm; Cuff Size: Standard 06-02-2012 10:06-0500 Body temperature 100.2 [degF] Tierra Darnell CREDIT RISK MODELER [facility], Inc.; [employer] 06-02-2012 10:06-0500 Body weight 137.44 kg Tierra Darnell CREDIT RISK MODELER [facility], Inc.; [employer]. 06-02-2012 10:06-0500 Diastolic blood pressure 91 mm[Hg] Tierra Darnell CREDIT RISK MODELER Stuart Arrogene [facility], Inc.; [employer]. Comment on above: Patient Position: Sitting; Cuff Location : Left Arm; Cuff Size: Standard 06-02-2012 10:06-0500 Heart rate 116 /min Tierra Darnell CREDIT RISK MODELER [facility], Inc.; [email or web address]. Comment on above: Pattern: Regular 06-02-2012 10:06-0500 Inhaled oxygen concentration 20 % Tierra Darnell CREDIT [employer]ISK [employer]ER Stuart Arrogene [facility], Inc.; [employer]. Comment on above: Room air 06-02-2012 10:06-0500 Inhaled oxygen concentration 21 % Tierra Darnell CREDIT [employer]ISK [employer] [facility], [email or web address].; [employer]. Comment on above: Room air 06-02-2012 10:06-0500 SaO2% (BldA) [Mass fraction] 98 % Tierra Darnell CREDIT RISK MODELER [facility], Inc.; [email or web address]. 06-02-2012 10:06-0500 Systolic blood pressure 132 mm[Hg] Tierra Darnell CREDIT RISK [employer]ER [employer] [facility], [email or web address].; [employer]. Comment on above: Patient Position: Sitting; Cuff Location : Left Arm; Cuff Size: Standard 03-09-2011 09:54-0400 Body weight 132.9 kg Tierra Darnell ERIC Stuart Arrogene [facility], Inc.; [email or web address]. 03-09-2011 09:54-0400 Diastolic blood pressure 85 mm[Hg] Tierra Darnell ERIC Stuart Arrogene [facility], [email or web address].; [employer]. Comment on above: Patient Position: Sitting; Cuff Location : Left Arm; Cuff Size: Standard 03-09-2011 09:54-0400 Heart rate 80 /min Tierra E Mann [facility], Inc.; [employer]. Comment on above: Pattern: Regular 03-09-2011 09:54-0400 Systolic blood pressure 138 mm[Hg] Tierra Leyva Mann CREDIT RISK MODELER [facility], Inc.; [email or web address]. Comment on above: Patient Position: Sitting; Cuff Location : Left Arm; Cuff Size: Standard 12-15-2010 09:59-0400 Body temperature 99.2 [degF] Gabriela Dye [facility], Inc.; [email or web address]. Comment on above: Method: Tympanic 12-15-2010 09:59-0400 Body weight 130.18 kg Gabriela Dye [facility], [facility].; [employer] 12-15-2010 09:59-0400 Diastolic blood pressure 73 mm[Hg] Gabriela Dye [facility], [facility].; [employer] Comment on above: Patient Position: Sitting; Cuff Location : Left Arm; Cuff Size: Large 12-15-2010 09:59-0400 Heart rate 91 /min Gabriela Dye [facility], [facility].; [email or web address]. Comment on above: Pattern: Regular 12-15-2010 09:59-0400 Inhaled oxygen concentration 20 % Gabriela Dye [facility], [facility].; [employer]. Comment on above: Room air 12-15-2010 09:59-0400 Inhaled oxygen concentration 21 % Gabriela Dye [facility] Arrogene [facility], Inc.; [employer]. Comment on above: Room air 12-15-2010 09:59-0400 SaO2% (BldA) [Mass fraction] 95 % JillianJosee Dye [facility] Arrogene [facility], Inc.; [employer] 12-15-2010 09:59-0400 Systolic blood pressure 132 mm[Hg] Gabriela Dye [facility] Arrogene [facility], Inc.; [employer]. Comment on above: Patient Position: Sitting; Cuff Location : Left Arm; Cuff Size: Large Encounters Encounter Date Encounter Type Care Provider Facility Start: 01-26-2025 End: 01-26-2025 Orders Nataliia Rollins MD Work Phone: [facility] Start: 10-12-2024 End: 10-12-2024 Office outpatient visit 25 minutes Nataliia Rollins MD Work Phone: [employer]. Start: 08-05-2024 End: 08-05-2024 Office outpatient visit 15 minutes Nataliia Rollins MD Work Phone: [facility] Start: 05-02-2024 End: 05-02-2024 ambulatory NATALIIA ROLLINS [facility] Start: 04-13-2024 End: 04-13-2024 Patient encounter status Nataliia Rollins MD Work Phone: [employer] Start: 04-13-2024 End: 04-13-2024 Periodic preventive med est patient 40-64yrs Nataliia Rollins MD Work Phone: [employer]. Start: 04-06-2024 End: 04-06-2024 Orders Nataliia Rollins MD Work Phone: [employer]. Start: 02-10-2024 End: 02-10-2024 Orders Nataliia Rollins MD Work Phone: [employer]. Start: 11-12-2023 End: 11-12-2023 Medication Nataliia Rollins MD Work Phone: [employer]. Start: 10-08-2023 End: 10-08-2023 Office outpatient visit 25 minutes Nataliia Rollins MD Work Phone: [employer]. Start: 05-13-2023 End: 05-13-2023 Telephone follow-up Nataliia Rollins MD Work Phone: [facility] Start: 03-22-2023 End: 03-22-2023 Patient encounter status Nataliia Rollins MD Work Phone: [facility]; [facility] Start: 03-22-2023 End: 03-22-2023 Periodic preventive med est patient 40-64yrs Nataliia Rollins MD Work Phone: [employer]. Start: 03-15-2023 End: 03-18-2023 Orders Nataliia Rollins MD Work Phone: [employer]. Start: 03-04-2023 End: 03-04-2023 Orders Nataliia Rollins MD Work Phone: [employer]. Start: 02-25-2023 End: 02-25-2023 Medication Nataliia Rollins MD Work Phone: [employer]. Start: 02-21-2023 End: 02-21-2023 Orders Nataliia Rollins MD Work Phone: [facility] Start: 09-21-2022 End: 09-21-2022 Medication Nataliia Rollins MD Work Phone: [facility] Start: 09-21-2022 End: 09-21-2022 Office outpatient visit 25 minutes Nataliia Rollins MD Work Phone: [facility] Start: 03-19-2022 End: 03-19-2022 Office outpatient visit 15 minutes Nataliia Rollins MD Work Phone: [facility] Start: 10-13-2021 End: 10-13-2021 Patient encounter procedure [facility] Start: 06-05-2021 End: 06-05-2021 Orders Nataliia Rollins MD Work Phone: [facility] Start: 06-05-2021 End: 06-05-2021 Preoperative state Nataliia Rollins MD Work Phone: [facility]; [employer]. Start: 06-01-2021 End: 06-01-2021 EKG myocardial ischemia Nataliia Rollins MD Work Phone: [facility]; [employer]. Start: 06-01-2021 End: 06-01-2021 Orders Nataliia Rollins MD Work Phone: [employer]. Start: 05-16-2021 End: 05-16-2021 Office outpatient visit 10 minutes Nataliia Rollins MD Work Phone: [employer]. Start: 11-25-2020 End: 11-28-2020 Orders Nataliia Rollins MD Work Phone: [employer]. Start: 11-23-2020 End: 11-23-2020 Historical Summary Nataliia Rollins MD Work Phone: [employer]. Start: 09-09-2020 End: 09-09-2020 Orders Nataliia Rollins MD Work Phone: [employer]. Start: 09-08-2020 End: 09-08-2020 Historical Summary Nataliia Rollins MD Work Phone: [facility] Start: 08-19-2020 End: 08-19-2020 Patient encounter status Nataliia Rollins MD Work Phone: [employer] Start: 08-19-2020 End: 08-19-2020 Periodic preventive med est patient 40-64yrs Nataliia Rollins MD Work Phone: [employer]. Start: 08-12-2020 End: 08-12-2020 Orders Nataliia Rollins MD Work Phone: [employer]. Start: 07-29-2020 End: 07-29-2020 Office outpatient visit 15 minutes Nataliia Rollins MD Work Phone: [employer]. Start: 04-14-2020 End: 04-14-2020 Telephone follow-up Nataliia Rollins MD Work Phone: [employer]. Start: 01-22-2019 End: 01-22-2019 Telephone follow-up Nataliia Rollins MD Work Phone: [facility] Start: 06-23-2018 End: 06-23-2018 Historical Summary Nataliia Rollins MD Work Phone: [facility] Start: 06-23-2018 End: 06-23-2018 Nursing evaluation of patient and report Nataliia Rollins MD Work Phone: [employer]. Start: 11-26-2017 End: 11-26-2017 Patient encounter status Nataliia Rollins MD Work Phone: [employer].; [email or web address] Start: 11-26-2017 End: 11-26-2017 Periodic preventive med est patient 40-64yrs Nataliia Rollins MD Work Phone: [employer]. Start: 09-11-2016 End: 09-11-2016 Office outpatient visit 15 minutes Nataliia Rollins MD Work Phone: [employer]. Start: 03-16-2016 End: 03-16-2016 Medication Nataliia Rollins MD Work Phone: [employer]. Start: 01-03-2016 End: 01-03-2016 Patient encounter status Nataliia Rollins MD Work Phone: [employer].; [email or web address] Start: 01-03-2016 End: 01-03-2016 Periodic preventive med est patient 40-64yrs Nataliia Rollins MD Work Phone: [employer]. Start: 10-06-2014 End: 10-06-2014 Medication Nataliia Rollins MD Work Phone: [employer]. Start: 01-05-2014 End: 01-05-2014 Office outpatient visit 15 minutes Nataliia Rollins MD Work Phone: [employer]. Start: 09-18-2013 End: 09-18-2013 Medication Nataliia Rollins MD Work Phone: [employer]. Start: 07-20-2013 End: 07-20-2013 Patient encounter procedure Nataliia Rollins MD Work Phone: [employer]. Start: 07-17-2013 End: 07-17-2013 Medication Nataliia Rollins MD Work Phone: [employer]. Start: 06-15-2013 End: 06-15-2013 Medication Nataliia Rollins MD Work Phone: [facility] [employer] [facility]. Start: 04-27-2013 End: 04-27-2013 Medication Nataliia Rollins MD Work Phone: [employer] [facility] Start: 06-02-2012 End: 06-02-2012 Patient encounter procedure Nataliia Rollins MD Work Phone: [employer] Start: 01-15-2012 End: 01-15-2012 Medication Nataliia Rollins MD Work Phone: [employer]. Start: 03-09-2011 End: 03-09-2011 Patient encounter procedure Nataliia Rollins MD Work Phone: Stuart Arrogene [facility]. Start: 12-15-2010 End: 12-15-2010 Patient encounter procedure Nataliia Rollins MD Work Phone: Stuart Arrogene [facility] [email or web address] [facility] [employer] [facility]. EKG myocardial ischemia Gabriela Dye CREDIT RISK MODELER [employer] [facility].; [employer]. Patient encounter status Lui Schmidt LPN [employer] [facility].; [employer] [facility]. Procedures Date Procedure Procedure Detail Performing Clinician Start: 04-13-2024 End: 04-10-2024 Depression screening Nataliia Rollins MD Work Phone: Start: 04-13-2024 End: 04-13-2024 Flu immunize order/admin Nataliia De Leon Work Phone: Start: 04-13-2024 End: 04-10-2024 Scr dep neg, no plan reqd Nataliia Rollins MD Work Phone: Start: 04-06-2024 End: 04-06-2024 Lab findings surveillance Lui PALOMARES Comment on above: CMP 104 Start: 04-06-2024 End: 04-06-2024 Lipid panel Lui Schmidt LPN Comment on above: TC 153, HDL 52, TRI 86, LDL 83 Start: 04-06-2024 End: 04-06-2024 Prostate specific antigen measurement Lui Schmidt LPN Comment on above: 0.34 Start: 04-06-2024 End: 04-06-2024 Thyrotropin [Units/volume] in Serum or Plasma Lui Schmidt LPN Comment on above: 2.68 Start: 03-22-2023 End: 03-22-2023 Depression screening Nataliia Rollins MD Work Phone: Start: 03-22-2023 End: 03-22-2023 Flu immunize order/admin Nataliia De Leon Work Phone: Start: 03-22-2023 End: 03-22-2023 Scr dep neg, no plan reqd Nataliia Rollins MD Work Phone: Start: 03-15-2023 End: 03-15-2023 Lab findings surveillance Lui PALOMARES Comment on above: 102 in CMP Start: 03-15-2023 End: 03-15-2023 Lipid panel Lui Schmidt LPN Comment on above: TC 152, HDL 56, TRI 45, LDL 83 Start: 03-15-2023 End: 03-15-2023 Thyrotropin [Units/volume] in Serum or Plasma Lui Schmidt LPN Comment on above: 2.40 Start: 10-13-2021 CT of abdomen and pe lvis without contrast Start: 06-01-2021 End: 04-15-2024 Myocardial spect multiple studies Nataliia Rollins MD Work Phone: Start: 11-04-2020 End: 11-04-2020 Screening colonoscopy Lui Schmidt LPN Comment on above: Bill Clark3 polyps removed Bill Clark3 polyps removed, repeat 5 years Start: 09-02-2020 End: 09-02-2020 Cologuard Lui Schmidt LPN Comment on above: Abnormal. Positive Start: 08-19-2020 End: 08-19-2020 Depression screening Nataliia Rollins MD Work Phone: Start: 08-19-2020 End: 09-09-2020 Oncology colorectal screening marcellus 10 dna markrs Nataliia Rollins MD Work Phone: Start: 08-19-2020 End: 08-19-2020 Scr dep neg, no plan reqd Nataliia Rollins MD Work Phone: hernia Lui Schmidt LP N Comment on above: 2011 hernia Lui Schmidt LP N Comment on above: 2011 hernia Valarie Villegas MA Comment on above: 2011 Plan of Treatment Date Care Activity Detail Author Start: 04-12-2025 Patient encounter procedure Medical; PHYSICAL - physical [facility] Start: 12-Apr-2025 09:00-04:00 MD Nataliia Rollins Appointment Request [facility] Start: 04-05-2025 Assay of prostate sp ecific antigen total PSA TOTAL (PROSTATE SPECIFIC ANTIGEN) (29559) Start: 05-Apr-2025 11:50-04:00 Request [facility]; [employer]. Start: 04-05-2025 Assay of thyroid stimulating hormone tsh TSH W/ REFL FREE T4 (25299,21783) (26130) Start: 05-Apr-2025 11:50-04:00 Request [facility]; [employer]. Start: 04-05-2025 Lipid panel LIPID PANEL (8 0061) Start: 05-Apr-2025 11:50-04:00 Request [facility]; [employer]. Start: 04-05-2025 Comprehensive metabo lic panel CMP w/ GFR* (67019) Start: 05-Apr-2025 11:50-04:00 Request [facility]; [employer]. Start: 04-05-2025 Nursing evaluation o f patient and report Medical; Nurse visit - fasting labs-- [facility] Start: 05-Apr-2025 09:00-04:00 NURSE, FLOAT Appointment Request [facility] Start: 10-12-2024 Patient encounter procedure [facility] Start: 04-13-2024 Assay of testosteron e total TESTOSTERONE TOTAL, LC/MS/MS (MALE) (55344) Start: 13-Apr-2024 09:21-04:00 Request [facility]; [employer]. Start: 04-13-2024 Patient encounter procedure Medical; PHYSICAL - [facility] Start: 13-Apr-2024 09:00-04:00 MD Nataliia Rollins Appointment Request [facility] [employer] Start: 04-06-2024 Assay of thyroid stimulating hormone tsh TSH (THYROID STIMULATING HORMONE) (0-6D) (61146) Start: 06-Apr-2024 Request [facility] Start: 04-06-2024 Nursing evaluation o f patient and report Medical; Nurse visit - fasting labs - [facility] [employer] Start: 06-Apr-2024 08:20-04:00 NURSE, FLOAT Appointment Request [facility] [employer] Start: 04-06-2024 Assay of prostate sp ecific antigen total [facility]; [employer]. Start: 04-06-2024 Comprehensive metabo lic panel [facility] [employer] [employer]. Start: 04-06-2024 [facility] [employer]. Start: 10-04-2023 Patient encounter procedure [facility] [employer] [employer] Start: 06-01-2021 Myocardial spect mul tiple studies Exercise Cardiolite Stress Test Start: 01-Jun-2021 Intent [facility] Immunizations Immunization Date Immunization Notes Care Provider Kevin ferguson 04-13-2024 influenza, injectabl e, quadrivalent, preservative free Nataliia Rollins MD Work Phone: [facility]; [employer]. Comment on above: Site: Right Cadence Roach iven: * Influenza (Flu) Vaccine (Inactivated or Recombinant) (01/20/21) 03-22-2023 influenza, injectabl e, quadrivalent, preservative free Nataliia Rollins MD Work Phone: [employer]; [employer] Comment on above: Site: Right Cadence Roach iven: * Influenza (Flu) Vaccine (Inactivated or Recombinant) (01/20/21) 11-24-2022 zoster vaccine, live Nataliia jenkins MD Work Phone: [facility]; [facility] 04-03-2018 influenza, injectabl e, quadrivalent, contains preservative Nataliia Rollins MD Work Phone: [email or web address]; [facility] 01-03-2016 measles, mumps and rubella virus vaccine Nataliia Rollisn MD Work Phone: [email or web address]; [employer]. Comment on above: Site: Deltoid Area ( Right)VIS Given: * Measles/Mumps/Rubella (MMR) (10/05/11) 06-17-2015 tetanus toxoid, redu jason diphtheria toxoid, and acellular pertussis vaccine, adsorbed Nataliia Rollins MD Work Phone: [facility]; [facility] 09-21-2005 tetanus toxoid, redu jason diphtheria toxoid, and acellular pertussis vaccine, adsorbed Nataliia Rollins MD Work Phone: [facility]; [facility] Payers Date Payer Category Payer Unknown [id number] Self-pay SELF PAY INSURANCE [id number] Unknown [id number] Unknown ANTHEM Social History Date Type Detail [facility] Work Phone: Start: 1965 Sex Assigned At Male [facility] Work Phone: Alcohol Use: Alcohol Use: ; 7 or fewer drinks per week. [facility] Caffeine Use Caffeine Use [facility]; [employer] Tobacco Use: Tobacco Use: ; N ever smoker. [facility]; [facility] Never smoked tobacco [facility]; [facility] Work Phone: Tobacco smoking consumption unknown [facility]; [facility] Work Phone: NEGATED: Highlighted row No Social History Information Available No Social History Information Available [facility]; [facility] Work Phone: Evaluation note Note Date & Type Note Facility Evaluation note No assessment information [facility] Work Phone: Summary Purpose Family History Cancer Status:Active Comments:Sister. Aunt and grandmother Coronary Artery Disease Status:Active Comments :Father. Crohn's Disease Status:Active Comments:Father. Hypertension Status:Active Comments:Father. Multiple Sclerosis Status:Active Comments:Moth er. Osteoarthritis Status:Active Comments:Father. Cancer Status:Active Comments:Sister. Aunt and grandmother Coronary Artery Disease Status:Active Comments :Father. Crohn's Disease Status:Active Comments:Father. Hypertension Status:Active Comments:Father. Multiple Sclerosis Status:Active Comments:Moth er. Osteoarthritis Status:Active Comments:Father. Cancer Status:Active Comments:Sister. Aunt and grandmother Coronary Artery Disease Status:Active Comments :Father. Crohn's Disease Status:Active Comments:Father. Hypertension Status:Active Comments:Father. Multiple Sclerosis Status:Active Comments:Moth er. Osteoarthritis Status:Active Comments:Father. Cancer Status:Active Comments:Sister. Aunt and grandmother Coronary Artery Disease Status:Active Comments :Father. Crohn's Disease Status:Active Comments:Father. Hypertension Status:Active Comments:Father. Multiple Sclerosis Status:Active Comments:Moth er. Osteoarthritis Status:Active Comments:Father. Cancer Status:Active Comments:Sister. Aunt and grandmother Coronary Artery Disease Status:Active Comments :Father. Crohn's Disease Status:Active Comments:Father. Hypertension Status:Active Comments:Father. Multiple Sclerosis Status:Active Comments:Moth er. Osteoarthritis Status:Active Comments:Father. Cancer Status:Active Comments:Sister. Aunt and grandmother Coronary Artery Disease Status:Active Comments :Father. Crohn's Disease Status:Active Comments:Father. Hypertension Status:Active Comments:Father. Multiple Sclerosis Status:Active Comments:Moth er. Osteoarthritis Status:Active Comments:Father. Cancer Status:Active Comments:Sister. Aunt and grandmother Coronary Artery Disease Status:Active Comments :Father. Crohn's Disease Status:Active Comments:Father. Hypertension Status:Active Comments:Father. Multiple Sclerosis Status:Active Comments:Moth er. Osteoarthritis Status:Active Comments:Father. Cancer Status:Active Comments:Sister. Aunt and grandmother Coronary Artery Disease Status:Active Comments :Father. Crohn's Disease Status:Active Comments:Father. Hypertension Status:Active Comments:Father. Multiple Sclerosis Status:Active Comments:Moth er. Osteoarthritis Status:Active Comments:Father. Cancer Status:Active Comments:Sister. Aunt and grandmother Coronary Artery Disease Status:Active Comments :Father. Crohn's Disease Status:Active Comments:Father. Hypertension Status:Active Comments:Father. Multiple Sclerosis Status:Active Comments:Moth er. Osteoarthritis Status:Active Comments:Father. Cancer Status:Active Comments:Sister. Aunt and grandmother Coronary Artery Disease Status:Active Comments :Father. Crohn's Disease Status:Active Comments:Father. Hypertension Status:Active Comments:Father. Multiple Sclerosis Status:Active Comments:Moth er. Osteoarthritis Status:Active Comments:Father. Cancer Status:Active Comments:Sister. Aunt and grandmother Coronary Artery Disease Status:Active Comments :Father. Crohn's Disease Status:Active Comments:Father. Hypertension Status:Active Comments:Father. Multiple Sclerosis Status:Active Comments:Moth er. Osteoarthritis Status:Active Comments:Father. Cancer Status:Active Comments:Sister. Aunt and grandmother Coronary Artery Disease Status:Active Comments :Father. Crohn's Disease Status:Active Comments:Father. Hypertension Status:Active Comments:Father. Multiple Sclerosis Status:Active Comments:Moth er. Osteoarthritis Status:Active Comments:Father. Cancer Status:Active Comments:Sister. Aunt and grandmother Coronary Artery Disease Status:Active Comments :Father. Crohn's Disease Status:Active Comments:Father. Hypertension Status:Active Comments:Father. Multiple Sclerosis Status:Active Comments:Moth er. Osteoarthritis Status:Active Comments:Father. Cancer Status:Active Comments:Sister. Aunt and grandmother Coronary Artery Disease Status:Active Comments :Father. Crohn's Disease Status:Active Comments:Father. Hypertension Status:Active Comments:Father. Multiple Sclerosis Status:Active Comments:Moth er. Osteoarthritis Status:Active Comments:Father. Cancer Status:Active Comments:Sister. Aunt and grandmother Coronary Artery Disease Status:Active Comments :Father. Crohn's Disease Status:Active Comments:Father. Hypertension Status:Active Comments:Father. Multiple Sclerosis Status:Active Comments:Moth er. Osteoarthritis Status:Active Comments:Father. Cancer Status:Active Comments:Sister. Aunt and grandmother Coronary Artery Disease Status:Active Comments :Father. Crohn's Disease Status:Active Comments:Father. Hypertension Status:Active Comments:Father. Multiple Sclerosis Status:Active Comments:Moth er. Osteoarthritis Status:Active Comments:Father. Cancer Status:Active Comments:Sister. Aunt and grandmother Coronary Artery Disease Status:Active Comments :Father. Crohn's Disease Status:Active Comments:Father. Hypertension Status:Active Comments:Father. Multiple Sclerosis Status:Active Comments:Moth er. Osteoarthritis Status:Active Comments:Father. Cancer Status:Active Comments:Sister. Aunt and grandmother Coronary Artery Disease Status:Active Comments :Father. Crohn's Disease Status:Active Comments:Father. Hypertension Status:Active Comments:Father. Multiple Sclerosis Status:Active Comments:Moth er. Osteoarthritis Status:Active Comments:Father. Cancer Status:Active Comments:Sister. Aunt and grandmother Coronary Artery Disease Status:Active Comments :Father. Crohn's Disease Status:Active Comments:Father. Hypertension Status:Active Comments:Father. Multiple Sclerosis Status:Active Comments:Moth er. Osteoarthritis Status:Active Comments:Father. Cancer Status:Active Comments:Sister. Aunt and grandmother Coronary Artery Disease Status:Active Comments :Father. Crohn's Disease Status:Active Comments:Father. Hypertension Status:Active Comments:Father. Multiple Sclerosis Status:Active Comments:Moth er. Osteoarthritis Status:Active Comments:Father. Cancer Status:Active Comments:Sister. Aunt and grandmother Coronary Artery Disease Status:Active Comments :Father. Crohn's Disease Status:Active Comments:Father. Hypertension Status:Active Comments:Father. Multiple Sclerosis Status:Active Comments:Moth er. Osteoarthritis Status:Active Comments:Father. Cancer Status:Active Comments:Sister. Aunt and grandmother Coronary Artery Disease Status:Active Comments :Father. Crohn's Disease Status:Active Comments:Father. Hypertension Status:Active Comments:Father. Multiple Sclerosis Status:Active Comments:Moth er. Osteoarthritis Status:Active Comments:Father. Cancer Status:Active Comments:Sister. Aunt and grandmother Coronary Artery Disease Status:Active Comments :Father. Crohn's Disease Status:Active Comments:Father. Hypertension Status:Active Comments:Father. Multiple Sclerosis Status:Active Comments:Moth er. Osteoarthritis Status:Active Comments:Father. Cancer Status:Active Comments:Sister. Aunt and grandmother Coronary Artery Disease Status:Active Comments :Father. Crohn's Disease Status:Active Comments:Father. Hypertension Status:Active Comments:Father. Multiple Sclerosis Status:Active Comments:Moth er. Osteoarthritis Status:Active Comments:Father. Cancer Status:Active Comments:Sister. Aunt and grandmother Coronary Artery Disease Status:Active Comments :Father. Crohn's Disease Status:Active Comments:Father. Hypertension Status:Active Comments:Father. Multiple Sclerosis Status:Active Comments:Moth er. Osteoarthritis Status:Active Comments:Father. Cancer Status:Active Comments:Sister. Aunt and grandmother Coronary Artery Disease Status:Active Comments :Father. Crohn's Disease Status:Active Comments:Father. Hypertension Status:Active Comments:Father. Multiple Sclerosis Status:Active Comments:Moth er. Osteoarthritis Status:Active Comments:Father. Cancer Status:Active Comments:Sister. Aunt and grandmother Coronary Artery Disease Status:Active Comments :Father. Crohn's Disease Status:Active Comments:Father. Hypertension Status:Active Comments:Father. Multiple Sclerosis Status:Active Comments:Moth er. Osteoarthritis Status:Active Comments:Father. Cancer Status:Active Comments:Sister. Aunt and grandmother Coronary Artery Disease Status:Active Comments :Father. Crohn's Disease Status:Active Comments:Father. Hypertension Status:Active Comments:Father. Multiple Sclerosis Status:Active Comments:Moth er. Osteoarthritis Status:Active Comments:Father. Cancer Status:Active Comments:Sister. Aunt and grandmother Coronary Artery Disease Status:Active Comments :Father. Crohn's Disease Status:Active Comments:Father. Hypertension Status:Active Comments:Father. Multiple Sclerosis Status:Active Comments:Moth er. Osteoarthritis Status:Active Comments:Father. Cancer Status:Active Comments:Sister. Aunt and grandmother Coronary Artery Disease Status:Active Comments :Father. Crohn's Disease Status:Active Comments:Father. Hypertension Status:Active Comments:Father. Multiple Sclerosis Status:Active Comments:Moth er. Osteoarthritis Status:Active Comments:Father. Cancer Status:Active Comments:Sister. Aunt and grandmother Coronary Artery Disease Status:Active Comments :Father. Crohn's Disease Status:Active Comments:Father. Hypertension Status:Active Comments:Father. Multiple Sclerosis Status:Active Comments:Moth er. Osteoarthritis Status:Active Comments:Father. Cancer Status:Active Comments:Sister. Aunt and grandmother Coronary Artery Disease Status:Active Comments :Father. Crohn's Disease Status:Active Comments:Father. Hypertension Status:Active Comments:Father. Multiple Sclerosis Status:Active Comments:Moth er. Osteoarthritis Status:Active Comments:Father. Cancer Status:Active Comments:Sister. Aunt and grandmother Coronary Artery Disease Status:Active Comments :Father. Crohn's Disease Status:Active Comments:Father. Hypertension Status:Active Comments:Father. Multiple Sclerosis Status:Active Comments:Moth er. Osteoarthritis Status:Active Comments:Father. Cancer Status:Active Comments:Sister. Aunt and grandmother Coronary Artery Disease Status:Active Comments :Father. Crohn's Disease Status:Active Comments:Father. Hypertension Status:Active Comments:Father. Multiple Sclerosis Status:Active Comments:Moth er. Osteoarthritis Status:Active Comments:Father. Cancer Status:Active Comments:Sister. Aunt and grandmother Coronary Artery Disease Status:Active Comments :Father. Crohn's Disease Status:Active Comments:Father. Hypertension Status:Active Comments:Father. Multiple Sclerosis Status:Active Comments:Moth er. Osteoarthritis Status:Active Comments:Father. Cancer Status:Active Comments:Sister. Aunt and grandmother Coronary Artery Disease Status:Active Comments :Father. Crohn's Disease Status:Active Comments:Father. Hypertension Status:Active Comments:Father. Multiple Sclerosis Status:Active Comments:Moth er. Osteoarthritis Status:Active Comments:Father. Advance Directives No Advanced Directives Records FoundNo Advanced Directives Records FoundNo Advanced Directives Records FoundNo Advanced Directives Records Found Chief Complaint and Reason for Visit Chief Complaint CALCULUS OF URETER Additional Source Comments (unrecognized sect ion and content) No Status Records FoundNo Status Records FoundNo Status Records FoundNo Status Records Found INFORMATION SOURCE (unrecogn ized section and content) DATE CREATED AUTHOR 08/14/2021 [employer] ([place]) DATE CREATED AUTHOR AUTHOR'S ORGANIZ ATION 10/20/2021 [facility] DATE CREATED AUTHOR AUTHOR'S ORGANIZ ATION 04/08/2024 [facility] DATE CREATED AUTHOR AUTHOR'S ORGANIZ ATION 05/07/2024 [facility] Goals (unrecognized section and content) Goals may be documented in a n alternate section FOR RECORDS PERTAINING TO PATIENTS WHO ARE OR HAVE BEEN ENROLLED IN A CHEMICAL DEPENDENCY/SUBSTANCEABUSE PROGRAM, SOME INFORMATION MAY BE OMITTED. This clinical summary was aggregated from multiple sources. Caution should be exercised in using it in the provision of clinical care. This summary normalizes information from multiple sources, and as a consequence, information in this document may materially change the coding, format and clinical context of patient data. In addition, data may be omitted in some cases. CLINICAL DECISIONS SHOULD BE BASED ON THE PRIMARY CLINICAL RECORDS. [facility] [email or web address] [facility]. provides no warranty or guarantee of the accuracy or completeness of information in this document.
[2025-03-12 06:16] LABS: Partial Thromboplast Time 27.0 Seconds (24.1-36.2); Prothrombin Time (Protime)PT. 13.7 SECONDS (11.7-14.9)
[2025-03-12] MEDS: Digoxin 250 MCG/ML Ampul 500 MCG IV (06:22)
[2025-03-12 06:46] LABS: Anion Gap 11 (5-15); BUN 19 mg/dL (4-19); BUN/Creat Ratio 22.8 RATIO (10-20); Calcium,Total 8.7 mg/dL (7.6-11.0); Carbon Dioxide 22.9 mmol/L (21.0-32.0); Chloride 105 mmol/L (98-108); Estimated Creatinine Clearance 159.47 ml/min (50-250); Glucose 130 mg/dL (70-99); Magnesium 2.2 mg/dL (1.5-2.2); Potassium 4.3 mmol/L (3.3-5.1)
--- NOTE | 2025-03-12 06:50 | EX.ED.DYSGE1 ---
HPI History of Present Illness Chief Complaint: Palpitations Informant: patient Narrative Narrative: Patient is a 59-year-old male with past medical history of hypertension hyperlipidemia and hypothyroidism. He states he typically wakes up early around 3:30 in the morning. He states he went to bed normally and got up at his normal time. He states he took his lisinopril and his Synthroid and then shortly after this began to feel like his heart was racing. He states he waited a few hours and the symptoms would not resolve and secondary to this he comes in for evaluation. He denies any history of abnormal cardiac rhythm. He denies any excessive stimulant use or illicit drug use. He denies any recent travel or surgery. He denies any associated chest pain with this just the sensation of heart racing and palpitations. [facility] Medical History Umbilical hernia HTN (hypertension) Kidney stones Home Medications ?Medication ?Instructions ?Recorded ?Last Taken ?Type atorvastatin 20 mg tablet 20 mg PO DAILY 03/12/25 Unknown History budesonide 90 mcg/actuation breath 2 inh inhalation Q12.TCU 03/12/25 Unknown History activated powder inhaler (Pulmicort Flexhaler) levalbuterol tartrate 45 1 inh inhalation Q4H PRN shortness 03/12/25 Unknown History mcg/actuation aerosol inhaler of breath or wheezing levothyroxine 75 mcg tablet 75 mcg PO DAILY 03/12/25 Unknown History lisinopril 10 mg tablet 10 mg PO DAILY 03/12/25 Unknown History Allergy/AdvReac Type Severity Reaction Status Date / Time No Known Allergies Allergy Verified 03/12/25 05:52 Social History Smoking Status: Never smoker ROS ROS ED Constitutional Constitutional ED: Denies chills or fever(s) Eyes Eyes: Denies blurry vision or change in vision ENT ENT ED: Denies sore throat Cardiovascular Cardiovascular: Reports palpitations and racing heartbeat; Denies chest pain Respiratory/Chest Respiratory/Chest: Denies cough or dyspnea Gastrointestinal Gastrointestinal: Reports nausea and vomiting; Denies abdominal pain or diarrhea Musculoskeletal Musculoskeletal: Denies back pain or myalgias Integumentary Denies rash Neurologic Neurologic: Denies headache(s), paresthesias or weakness Hematologic/Lymphatic Hematologic/Lymphatic: Denies easy bleeding or easy bruising EXAM Physical Exam Const Vital Signs: 03/12/25 05:53 03/12/25 05:57 03/12/25 06:15 Temperature 97.5 F L 97.5 F L Temperature Source Oral Oral Pulse Rate 145 H 151 H 154 H Respiratory Rate 20 H 21 H 18 Blood Pressure 87/72 L 87/72 L 101/66 Blood Pressure Mean 77 77 77 Pulse Ox 97 96 97 Oxygen Delivery Method Room Air Room Air Room Air 03/12/25 06:52 Temperature 98.8 F Temperature Source Oral Pulse Rate 138 H Respiratory Rate 18 Blood Pressure 114/99 H Blood Pressure Mean 104 Pulse Ox 97 Oxygen Delivery Method Room Air Positive well nourished, well developed and obese General Appearance ED: well developed; Negative for pallor Nutritional Appearance: obese HEENT HEENT Narrative: Normocephalic atraumatic Eyes PERRL and EOMs intact bilaterally General Eye ED: Negative for scleral icterus Neck supple and no JVD Resp normal respiratory effort and clear to auscultation bilaterally Cardio Rate: other Other Details: Irregularly irregular rhythm with tachycardic rate consistent with atrial fibrillation Radial and carotid pulses are equal and symmetric GI normal to inspection, nondistended, normoactive bowel sounds, non-tender, non-distended and no masses Auscultation: normoactive bowel sounds Palpation: soft Extremity normal to inspection Extremity Narrative: No asymmetric edema no pitting edema negative Homans' sign bilaterally Neuro oriented x3, CN's II-XII intact bilaterally and no sensory deficits noted Sensorium / Orientation: alert Motor Exam: strength 5/5 throughout Psych mental status grossly normal Skin no rashes or lesions noted and no wounds General Skin Exam: Negative for jaundice or pallor MDM MDM MDM Narrative Medical decision making narrative: Patient arrived to the ER awake and alert without any type of focal neurologic deficit. He denied any history of abnormal heart rhythm and he states that there has been no excessive stimulant use or illicit drug use. He also states has been taking all of his medications as directed and denies any potential overdose. He also denies chest pain or pleuritic chest pain and states has been no recent travel or surgery going against DVT/PE. EKG confirmed atrial fibrillation with rapid ventricular response. His initial blood pressure was low so he was started on IV fluids and given 500 mcg of IV digoxin. With the administration of IV fluid the patient's blood pressure improved and therefore Cardizem was added for rate control. Basic labs were obtained to assess for potential cause of the A-fib such as acute blood loss anemia acute kidney injury electrolyte abnormality or hyperthyroidism. Lab work revealed no clinically significant findings. After receiving Cardizem his heart rate did drop to 75 bpm however there was no spontaneous conversion and shortly after receiving the medication the heart rate increased to roughly 150 beats once again. Therefore he was given 3 doses of 5 mg of IV Lopressor. Despite receiving this the heart rate ranged anywhere from 105-130. Therefore as the patient is still in atrial fibrillation is still tachycardic I did discuss the case with the assistant to the vice president Dr. Butcher. He recommends patient be placed on a Cardizem drip as well as a heparin drip and be admitted to the hospital for continued care. Secondary to this I discussed the case with the hospitalist who agrees to accept the patient for continued treatment. History & Record Review Discussion w/independent historian: Patient Lab Data Attestation: I reviewed the patient's lab results. Labs: Laboratory Results - last 24 hr 03/12/25 06:00 WBC 8.7 RBC 4.79 Hgb 15.0 Hct 43.1 MCV 90.0 MCH 31.3 MCHC 34.8 RDW Std Deviation 41.7 RDW Coeff of Yudith 12.6 Plt Count 230 MPV 10.6 Immature Gran % (Auto) 0.100 Neut % (Auto) 68.0 Lymph % (Auto) 13.2 L Mccormick % (Auto) 14.3 H Eos % (Auto) 3.7 Baso % (Auto) 0.7 Absolute Neuts (auto) 5.9 Absolute Lymphs (auto) 1.15 Nucleated RBC % 0 PT 13.7 INR 1.0 APTT 27.0 Sodium 139 Potassium 4.3 Chloride 105 Carbon Dioxide 22.9 Anion Gap 11 BUN 19 Creatinine 0.81 Estim Creat Clear Calc 159.47 Est GFR (MDRD) Non-Af 102 BUN/Creatinine Ratio 22.8 H Glucose 130 H Calcium 8.7 Magnesium 2.2 TSH 5.700 H Management Discussion w/another healthcare provider: Hospitalist and Clinical Admissions Manager Discharge Plan Dx/Rx/DC Orders Clinical Impression: Atrial fibrillation with rapid ventricular response, Hypertension, Hypothyroidism, Hyperlipidemia Disposition Disposition: [facility]
[2025-03-12] MEDS: Diltiazem 125 MG in Dextrose 5%-Water (100mL Bag) 100 ML IV ×2 (08:29→18:35)
[2025-03-12] MEDS: HEPARIN/D5w 25,000 UNITS 25,000 UNITS/250 ML IV.SOLN. 22 UNITS CONT INF (08:52)
--- NOTE | 2025-03-12 11:46 | ECHOCS_ITS ---
Reason For Study Reason For Study: AFIB Procedure This was a 2D Doppler, Color Flow transthoracic echocardiogram. The study was technically difficult. Contrast injection was performed. Exam performed portable in patient room. Left Ventricle Severe concentric left ventricular hypertrophy. Left ventricular systolic function is hyperdynamic. The left ventricular ejection fraction is 70 %. LV outflow tract obstructions with velocity average of 60mmHg. Right Ventricle Normal RV size. Normal systolic function. Atria Normal left atrium. Normal right atrium. Mitral Valve There is Mild focal anterior mitral annular calcification. Mild (1+) mitral valve insufficiency. Tricuspid Valve Normal tricuspid valve. Mild (1+) tricuspid valve insufficiency. Aortic Valve The aortic valve is not well visualized in the short axis view. There is no aortic stenosis. Pulmonic Valve The pulmonic valve is not well visualized. Great Vessels Normal sized aortic root. Pericardium/Pleural No pericardial effusion. Medication Diluted definity 2ml given slow IV push to enhance endocardial definition. MMode/2D Measurements & Calculations LVIDd: 3.9 cm IVSd: 2.1 cm LVOT diam: 2.0 cm LVIDs: 1.9 cm LVPWd: 1.5 cm FS: 51.9 % LVOT area: 3.1 cm2 Ao root diam: 3.4 cm LAV(MOD-bp): 55.4 ml LA A4 area: 21.3 cm2 LAV(MOD-bp) Indexed: 20.0 ml/m2 LAV(MOD-sp2): 46.9 ml LAV(MOD-sp4): 63.1 ml LA dimension(2D): 4.5 cm RA A4 area: 13.8 cm2 Doppler Measurements & Calculations PA V2 max: 120.2 cm/sec PA V2 mean: 81.7 cm/sec ECHO/Echo Complete W/ Contrast Interpretation Summary The left ventricular ejection fraction is 70 %. Severe concentric left ventricular hypertrophy. Mild (1+) mitral valve insufficiency. There is Mild focal anterior mitral annular calcification. No previous echocardiogram to compare The study was technically difficult. Contrast injection was performed. Ordering Physician: Joselito Chan Referring Physician: NATALIIA QUIJANO Performed By: Chey Kat RCS
--- NOTE | 2025-03-12 12:50 | PCM.HP.STD ---
HPI - General General Date of Admission: 03/12/25 HPI Narrative PAULINA WESTBROOK, is a 59 M who presents to the hospital with palpitations. In the emergency room and is found to be in A-fib with RVR, and he states he has never been diagnosed with A-fib before but now that he knows that these are palpitations he says that he has felt those before therefore cannot cardiovert him as he needs to be on anticoagulation. Emergency room physician discussed the case with cardiology who requested Cardizem drip and heparin drip. Will obtain an echocardiogram. Denies any chest pain or lightheadedness. TSH in the emergency room was 5.7 he is on Synthroid. [facility] Medical History (Updated 03/12/25 @ 14:[address] Joselito Chan MD) HTN (hypertension) Kidney stones Home Medications ?Medication ?Instructions ?Recorded ?Last Taken ?Type atorvastatin 20 mg tablet 20 mg PO DAILY 03/12/25 Unknown History budesonide 90 mcg/actuation breath 2 inh inhalation Q12.TCU 03/12/25 Unknown History activated powder inhaler (Pulmicort Flexhaler) levalbuterol tartrate 45 1 inh inhalation Q4H PRN shortness 03/12/25 Unknown History mcg/actuation aerosol inhaler of breath or wheezing levothyroxine 75 mcg tablet 75 mcg PO DAILY 03/12/25 Unknown History lisinopril 10 mg tablet 10 mg PO DAILY 03/12/25 Unknown History Allergy/AdvReac Type Severity Reaction Status Date / Time No Known Allergies Allergy Verified 03/12/25 05:52 Family History (Updated 03/12/25 @ 14:[address] Joselito Chan MD) Other Heart disease Surgical History (Updated 03/12/25 @ 14:[address] Joselito Chan MD) H/O umbilical hernia repair Social History Smoking Status: Never smoker ROS Constitutional Constitutional: Denies chills, fatigue, fever(s) or malaise Eyes Eyes: Denies blurry vision ENT HEENT: Denies headache(s) or nasal discharge Cardiovascular Cardiovascular: Reports palpitations; Denies chest pain, dyspnea on exertion or syncope Respiratory/Chest Respiratory/Chest: Denies cough, shortness of breath at rest or shortness of breath with exertion Gastrointestinal Gastrointestinal: Denies constipation, diarrhea, nausea or vomiting Genitourinary Genitourinary: Denies dysuria Neurologic Neurologic: Denies focal weakness, numbness or tremor(s) Psychiatric Psychiatric: Denies anxiety or depression Vital Signs Vital Signs Vital Signs: 03/12/25 05:53 03/12/25 05:57 03/12/25 06:15 Temperature 97.5 F L 97.5 F L Temperature Source Oral Oral Pulse Rate 145 H 151 H 154 H Respiratory Rate 20 H 21 H 18 Respiratory Effort Respiratory Depth Respiratory Pattern Blood Pressure 87/72 L 87/72 L 101/66 Blood Pressure Mean 77 77 77 Pulse Ox 97 96 97 Oxygen Delivery Method Room Air Room Air Room Air Oxygen Flow Rate (L/min) 03/12/25 06:52 03/12/25 08:00 03/12/25 08:18 Temperature 98.8 F 98.1 F 98.1 F Temperature Source Oral Oral Pulse Rate 138 H 116 H 112 H Respiratory Rate 18 12 12 Respiratory Effort Respiratory Depth Respiratory Pattern Blood Pressure 114/99 H 97/76 97/76 Blood Pressure Mean 104 83 83 Pulse Ox 97 96 96 Oxygen Delivery Method Room Air Room Air Oxygen Flow Rate (L/min) 03/12/25 08:29 03/12/25 09:00 03/12/25 09:10 Temperature 98.7 F 98.4 F 97.8 F Temperature Source Oral Oral Oral Pulse Rate 123 H 116 H 126 H Respiratory Rate 18 15 13 Respiratory Effort Respiratory Depth Respiratory Pattern Blood Pressure 85/65 L 116/101 H Blood Pressure Mean 71 106 Pulse Ox 96 96 96 Oxygen Delivery Method Room Air Room Air Oxygen Flow Rate (L/min) 0 03/12/25 09:55 03/12/25 10:00 03/12/25 11:00 Temperature 97.4 F L 98.3 F 98.6 F Temperature Source Oral Oral Oral Pulse Rate 116 H 99 82 Respiratory Rate 16 14 18 Respiratory Effort Respiratory Depth Respiratory Pattern Blood Pressure 82/54 L 82/54 L 85/58 L Blood Pressure Mean 63 63 67 Pulse Ox 96 96 96 Oxygen Delivery Method Room Air Room Air Room Air Oxygen Flow Rate (L/min) 03/12/25 11:50 03/12/25 12:05 03/12/25 12:11 Temperature 97.6 F L 97.4 F L Temperature Source Temporal Temporal Pulse Rate 87 93 Respiratory Rate 15 15 Respiratory Effort Normal Non-Labored Respiratory Depth Normal Respiratory Pattern Normal Blood Pressure 90/61 80/57 L Blood Pressure Mean 70 64 Pulse Ox 95 98 Oxygen Delivery Method Room Air Room Air Room Air Oxygen Flow Rate (L/min) Weight Weight: 345 lb 10.957 oz Body Mass Index (BMI) 43.2 Physical Exam Narrative General: Alert, Oriented x3, Cooperative, No apparent distress HEENT: Atraumatic, PERRLA, EOMI, Normocephalic Oral: Moist Mucosa Neck: Supple, No JVD Lungs: Diminished, Normal air movement, No rhonchi, No wheeze, No rales Cardiovascular: Irregular rate and rhythm, Normal S1, Normal S2, NAYAN Abdomen: Soft, Non Tender, Non-Distended, No Hepato-splenomegaly Extremities: No edema, Capillary Refill Less than 3 Seconds Skin: No rashes, No breakdown Musculoskeletal: No Tenderness to Palpation of Joints or Extremities Neurological: No focal neurological deficits, moves all extremities Psych/Mental Status: Normal Affect, Appropriate Results Lab / Micro Data 03/12/25 06:00 03/12/25 06:00 Labs: Laboratory Results - last 24 hr 03/12/25 06:00: WBC 8.7, RBC 4.79, Hgb 15.0, Hct 43.1, MCV 90.0, MCH 31.3, MCHC 34.8, RDW Std Deviation 41.7, RDW Coeff of Yudith 12.6, Plt Count 230, MPV 10.6, Immature Gran % (Auto) 0.100, Neut % (Auto) 68.0, Lymph % (Auto) 13.2 L, Tompkins % (Auto) 14.3 H, Eos % (Auto) 3.7, Baso % (Auto) 0.7, Absolute Neuts (auto) 5.9, Absolute Lymphs (auto) 1.15, Nucleated RBC % 0, PT 13.7, INR 1.0, APTT 27.0, Sodium 139, Potassium 4.3, Chloride 105, Carbon Dioxide 22.9, Anion Gap 11, BUN 19, Creatinine 0.81, Estim Creat Clear Calc 159.47, Est GFR (MDRD) Non-Af 102, BUN/Creatinine Ratio 22.8 H, Glucose 130 H, Calcium 8.7, Magnesium 2.2, TSH 5.700 H Assessment & Plan Assessment/Plan (1) Atrial fibrillation with rapid ventricular response: PLAN: Plan 1. A-fib with RVR/essential HTN/HLD ? Continue with Cardizem drip, appreciate cardiology's assistance. Given his hypotension may need to initiate different modalities either p.o. metoprolol or digoxin. Unfortunately this is not new onset A-fib as he states that he has had this sensation of palpitations previously therefore given the lack of anticoagulation duration he is not at candidate for amiodarone ?Will transition to Eliquis this evening and stop the heparin drip an hour or 2 before Eliquis is given ? Echo is pending ? TSH was unremarkable ? Will hold his lisinopril since he is on Cardizem drip to allow better leeway for rate control ? Continue with Lipitor ? Monitor make adjustments as necessary 2. Hypothyroidism ? Stable ? Continue Synthroid 3. Asthma ? Not in exacerbation ? Can continue with his home inhalers DVT: Heparin drip 75 minutes was spent on direct patient care, including documentation as well as chart review and collaboration with colleagues Charges/Coding Visit Charges Inpatient E&M: 42516 Init Hosp L3
[2025-03-12 15:13] LABS: Partial Thromboplast Time 83.5 Seconds (24.1-36.2)
--- NOTE | 2025-03-12 19:25 | PCM.HOSP.N ---
Hospitalist Note Cardizem drip ordered to restart and maintain at 5 mg an hour. Patient assessed 45 minutes after restarting, ventricular heart rate noted low 100s to 110s, SBP 68-74 with nursing staff checking both arms and changing BP cuff (MAP 48-59), patient having some shortness of breath but states much improved from earlier in the day. Denies chest pain, pressure, and palpitations. He does report numbness and tingling to lower extremities, especially with increased edema. Noted pitting edema RLE +2, LLE +1. Post tib and dorsalis pedis pulses palpable. Reviewed above information and echo results with retort kiln burner on-call, Dr. Butcher. He advised continuation of diltiazem drip, transfer to ICU, and initiation of norepinephrine. I proceeded with this plan and placed an order for PICC line insertion. Discussed all information and plan with patient, he states understanding, and is agreeable to transfer.
[2025-03-12] MEDS: Norepinephrine 8 MG in 0.9% Normal Saline (250mL Bag) 242 ML 9.4 MG CONT INF (20:10)
--- NOTE | 2025-03-12 20:44 | NURSING ---
Shila RENDON at bedside. Levophed gtt started at 5 mcg/min. Order given to restart the cardizem gtt @ 5 mg/hr as well. Okay to still transition the heparin gtt to eliquis tonight. PO metoprolol dose tonight should also be given to see if maybe the cardizem gtt can be turned off.
[2025-03-12] MEDS: APIXABAN 5 MG TABLET PO (21:01)
[2025-03-12] MEDS: TITRATION PARAMETER CHANGE 1 EACH IV (22:15)
--- NOTE | 2025-03-12 23:17 | PCM.HOSP.N ---
Hospitalist Note Due to increased acuity and noting short runs of VT on the monitoring and evaluation advisor, I discussed with the pt his wishes regarding his Code status and how he would like us to take the best care of him. He immediately states that he does not want to be on a ventilator intermediate and become a vegetable, but I've been thinking about this. I'm okay being on the vent for just a few days. My understands my wishes. I reviewed Full, DNRCCA with and without intubation, and DNRCC statuses and what each entailed. He is choosing to remain a FULL CODE at this time.
[2025-03-13] VITALS (44 sets, daily range): BP systolic 76–128; BP diastolic 58–106; PULSE 82–145; RESP 10–27; TEMP 36.6; O2SAT 91–99; BMI 42.3
[2025-03-13] MEDS: Diltiazem 125 MG in Dextrose 5%-Water (100mL Bag) 100 ML IV (00:53)
[2025-03-13 06:09] LABS: Hematocrit 38.9 % (40-54); Hemoglobin 13.5 g/dL (13.0-16.5); Immature Granulocytes Count 0.030 X10^3/uL (0.0-0.0); Mean Corp Hgb Conc 34.7 g/dL (32-36); Mean Corpuscular Volume 89.2 fL (80-94); Mean Platelet Vol. 10.7 fl (6.2-12.0); NRBC Flagged by Analyzer 0 % (0-5); Platelet Count 220 K/mm3 (150-450); RBC Distribution Width CV 13.0 % (11.6-14.6); RBC Distribution Width SD 42.6 fl (35.1-43.9); Red Blood Count 4.36 M/mm3 (4.6-6.2); White Blood Count 8.8 K/mm3 (4.4-11.0)
[2025-03-13 06:53] LABS: Anion Gap 9 (5-15); BUN 22 mg/dL (4-19); BUN/Creat Ratio 28.2 RATIO (10-20); Calcium,Total 8.6 mg/dL (7.6-11.0); Carbon Dioxide 22.4 mmol/L (21.0-32.0); Chloride 107 mmol/L (98-108); Estimated Creatinine Clearance 168.47 ml/min (50-250); Glucose 108 mg/dL (70-99); Potassium 4.6 mmol/L (3.3-5.1)
--- NOTE | 2025-03-13 07:45 | CON.PCM.CA_ITS ---
<Statement entered by Chula Butcher MD - 03/14/25 15:11> Pt seen & evaluated w/TIFF. I personally interviewed & exam the pt. I was involved in all aspects of pt's orders, interpretation of results & treatment Assessment & Plan Assessment/Plan (1) Hypertension: (2) Hypothyroidism: (3) Hyperlipidemia: (4) Atrial fibrillation with rapid ventricular response: PLAN: 59-year-old patient admitted with symptoms of palpitation. And noted patient has A-fib with RVR here at the ED at [facility] Denied any prior history of atrial fibrillation or cardiac arrhythmia He does have a cardiac catheterization 2020 and was treated with medical therapy with no coronary artery stent placed. Patient had a history of hypertension Hypothyroidism Hyperlipidemia. And also on this admission he has abnormal echocardiogram with severe concentric left ventricular hypertrophy and LV outflow tract obstruction. With the mild MR. He has been on treatment with Synthroid for hypothyroidism I had EKG which showed A-fib with RVR started on Cardizem drip while he was in the progressive care unit He had a drop in his blood pressure and I transferred him to ICU. Where low- dose of Levophed was used. This morning his blood pressure is much better with a systolic blood pressure around 180s still had A-fib with RVR. On Cardizem drip We added digoxin his renal function is normal. Cardiac care recommendation; patient started on Eliquis for a new onset A-fib with RVR. And will continue to monitor in ICU If he remains stable plan will be to evaluate for elective synchronized cardioversion which can be set up in 6 to 8-week on oral anticoagulation. Cardiac care plan discussed today with the patient as well as nursing staff and ICU and will give him a dose of digoxin 250mcg. If the blood pressure improve we will combine calcium channel trixie with the beta-trixie and possible low-dose digoxin And a plan of outpatient evaluation with event monitor versus loop recorder for the A-fib monitoring Chula Butcher MD,[facility] copper plate lithographer HPI Consult Data Date of Consult: 03/14/25 HPI Narrative Reason for Consultation: A-fib with RVR HPI Narrative: PAULINA WESTBROOK, is a 59 M who presents [facility] Medical History (Updated 03/12/25 @ 14:[address] Joselito Chan MD) HTN (hypertension) Kidney stones Home Medications ?Medication ?Instructions ?Recorded ?Last Taken ?Type atorvastatin 20 mg tablet 20 mg PO DAILY 03/12/25 Unkn own History budesonide 90 mcg/actuation breath 2 inh inhalation Q1 2.TCU 03/12/25 Unknown History activated powder inhaler (Pulmicort Flexhaler) levalbuterol tartrate 45 1 inh inhalation Q4H PRN karen rtness 03/12/25 Unknown History mcg/actuation aerosol inhaler of breath or wheezing levothyroxine 75 mcg tablet 75 mcg PO DAILY 03/12/25 U nknown History lisinopril 10 mg tablet 10 mg PO DAILY 03/12/25 Unkn own History cetirizine 10 mg tablet (All Day 10 mg PO DAILY PRN al lergy symptoms 03/13/25 Unknown History Allergy (cetirizine)) Allergy/AdvReac Type Severity Reaction Status Date / Time No Known Allergies Allergy Verified 03/12/25 05:52 Family History (Updated 03/12/25 @ 14:[address] Joselito Chan MD) Other Heart disease Surgical History (Updated 03/12/25 @ 14:[address] 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 Objective Data Vital Signs: Vital Signs Temp Pulse Resp BP Pulse Ox O2 Del Method O2 Flow Rate 98 F 99 19 H 93/60 95 Nasal Cannula 2 03/13/25 06:00 03/13/25 07:00 03/13/25 07:00 03/13/25 07:00 03/13/25 07:00 03/13/25 07:00 03/13/25 07:00 Oxygen Flow Rate (L/min) 2 Oxygen Delivery Method Nasal Cannula Weight: 340 lb 2.772 oz Body Mass Index (BMI) 42.3 Intake & Output: Intake and Output for Last 24 Hours 03/11/25 03/12/25 03/13/25 23:59 23:59 23:59 Intake Total 1854.70 / 2079.70 391.27 / 391.27 Output Total 0 / 600 1125 / 1125 Balance 1854.70 / 1479.70 -733.73 / -733.73 Lab / Micro Data 03/14/25 03:55 03/14/25 03:55 Labs: Laboratory Results - last 24 hr 03/12/25 14:52: APTT 83.5 H 03/13/25 05:53: WBC 8.8, RBC 4.36 L, Hgb 13.5, Hct 38.9 L, MCV 89.2, MCH 31.0, MCHC 34.7, RDW Std Deviation 42.6, RDW Coeff of Yudith 13.0, Plt Count 220, MPV 10.7, Immature Gran % (Auto) 0.300, Neut % (Auto) 67.3, Lymph % (Auto) 17.7 L, M domingo % (Auto) 11.1 H, Eos % (Auto) 3.1, Baso % (Auto) 0.5, Absolute Neuts (auto) 5.9, Absolute Lymphs (auto) 1.56, Nucleated RBC % 0, Sodium 138, Potassium 4.6, Chloride 107, Carbon Dioxide 22.4, Anion Gap 9, BUN 22 H, Creatinine 0.76, Estim Creat Clear Calc 168.47, Est GFR (MDRD) Non-Af 104, BUN/Creatinine Ratio 28.2 H, Glucose 108 H, Calcium 8.6 Cardiology Labs/Tests 03/12/25 14:52: APTT 83.5 H 03/13/25 05:53: WBC 8.8, RBC 4.36 L, Hgb 13.5, Hct 38.9 L, MCV 89.2, MCH 31.0, MCHC 34.7, Plt Count 220, MPV 10.7, Immature Gran % (Auto) 0.300, Neut % (Auto) 67.3, Lymph % (Auto) 17.7 L, [place] % (Auto) 11.1 H, Eos % (Auto) 3.1, Baso % (Auto) 0.5, Absolute Neuts (auto) 5.9, Nucleated RBC % 0, Sodium 138, Potassium 4.6, Chloride 107, Carbon Dioxide 22.4, Anion Gap 9, BUN 22 H, Creatinine 0.76, Est GFR (MDRD) Non-Af 104, BUN/Creatinine Ratio 28.2 H, Glucose 108 H, Calcium 8.6 Rhythm: EKG: ECHO: Stress Test: Cardiac Cath: PCI: CT Surgery: Holter monitor: EPS: PPM: CXR: Chest CT Scan: Radiography Diagnostic Testing: Radiology Impression Echocardiogram 03/12/25 11:46 Interpretation Summary The left ventricular ejection fraction is 70 %. Severe concentric left ventricular hypertrophy. Mild (1+) mitral valve insufficiency. There is Mild focal anterior mitral annular calcification. No previous echocardiogram to compare The study was technically difficult. Contrast injection was performed. Ordering Physician: Joselito Chan Referring Physician: NATALIIA QUIJANO Performed By: Chey Kat RCS Risk Score for UA/STEMI Assesmment (YES = 1) Risk Stratification Applicable: No
[2025-03-13] MEDS: Digoxin 250 MCG/ML Ampul IV (08:07)
[2025-03-13] MEDS: APIXABAN 5 MG TABLET PO ×2 (08:08→20:29)
--- NOTE | 2025-03-13 08:38 | PN.HOSP_ITS ---
Subjective Subjective Feeling better, Levophed off continue with Cardizem drip cardiology is can give a dose of digoxin and then he has metoprolol at 10 AM Objective Data Objective Data Vital Signs: Vital Signs Temp Pulse Resp BP Pulse Ox O2 Del Method O2 Flow Rate 98 F 101 H 19 H 98/67 95 Nasal Cannula 2 03/13/25 06:00 03/13/25 08:07 03/13/25 07:00 03/13/25 08:07 03/13/25 07:00 03/13/25 08:00 03/13/25 08:00 Oxygen Flow Rate (L/min) 2 Oxygen Delivery Method Nasal Cannula Weight: 340 lb 2.772 oz Body Mass Index (BMI) 42.3 Intake & Output: Intake and Output for Last 24 Hours 03/12/25 03/13/25 03/14/25 03:59 03:59 03:59 Intake Total 2105.97 / 2110.97 140.00 / 140.00 Output Total 600 / 600 525 / 525 Balance 1505.97 / 1510.97 -385.00 / -385.00 Lab / Micro Data 03/13/25 05:53 03/13/25 05:53 Labs: Laboratory Results - last 24 hr 03/12/25 14:52: APTT 83.5 H 03/13/25 05:53: WBC 8.8, RBC 4.36 L, Hgb 13.5, Hct 38.9 L, MCV 89.2, MCH 31.0, MCHC 34.7, RDW Std Deviation 42.6, RDW Coeff of Yudith 13.0, Plt Count 220, MPV 10.7, Immature Gran % (Auto) 0.300, Neut % (Auto) 67.3, Lymph % (Auto) 17.7 L, M [place] % (Auto) 11.1 H, Eos % (Auto) 3.1, Baso % (Auto) 0.5, Absolute Neuts (auto) 5.9, Absolute Lymphs (auto) 1.56, Nucleated RBC % 0, Sodium 138, Potassium 4.6, Chloride 107, Carbon Dioxide 22.4, Anion Gap 9, BUN 22 H, Creatinine 0.76, Estim Creat Clear Calc 168.47, Est GFR (MDRD) Non-Af 104, BUN/Creatinine Ratio 28.2 H, Glucose 108 H, Calcium 8.6 Radiography Diagnostic Testing: Radiology Impression Echocardiogram 03/12/25 11:46 Interpretation Summary The left ventricular ejection fraction is 70 %. Severe concentric left ventricular hypertrophy. Mild (1+) mitral valve insufficiency. There is Mild focal anterior mitral annular calcification. No previous echocardiogram to compare The study was technically difficult. Contrast injection was performed. Ordering Physician: Joselito Chan Referring Physician: NATALIIA QUIJANO Performed By: Chey Kat RCS Physical Exam Narrative General: Alert, Oriented x3, Cooperative, No apparent distress HEENT: Atraumatic, PERRLA, EOMI, Normocephalic Oral: Moist Mucosa Neck: Supple, No JVD Lungs: Diminished, Normal air movement, No rhonchi, No wheeze, No rales Cardiovascular: Irregular rate and rhythm, Normal S1, Normal S2, NAYAN Abdomen: Soft, Non Tender, Non-Distended, No Hepato-splenomegaly Extremities: No edema, Capillary Refill Less than 3 Seconds Skin: No rashes, No breakdown Musculoskeletal: No Tenderness to Palpation of Joints or Extremities Neurological: No focal neurological deficits, moves all extremities Psych/Mental Status: Normal Affect, Appropriate Assessment & Plan Assessment/Plan (1) Atrial fibrillation with rapid ventricular response: PLAN: Plan 1. A-fib with RVR/essential HTN/HLD ? Continue with Cardizem drip, appreciate cardiology's assistance ? He is not in shock, the Levophed is simply to allow for high enough Cardizem dose to control his heart rate ?Will transition to Eliquis this evening and stop the heparin drip an hour or 2 before Eliquis is given ? Echo is pending ? TSH was unremarkable ? Will hold his lisinopril since he is on Cardizem drip to allow better leeway for rate control ? Continue with Lipitor ? Monitor make adjustments as necessary 2. Hypothyroidism ? Stable ? Continue Synthroid 3. Asthma ? Not in exacerbation ? Can continue with his home inhalers DVT: Eliquis Charges/Coding Visit Charges Inpatient E&M: 96894 Subs Hosp L2
[2025-03-13] MEDS: FLU VACCINE 2025-26(6MOS UP) 45 MCG/0.5 ML SYRINGE IM (12:44)
--- NOTE | 2025-03-13 19:15 | CASEMGMT ---
RN?CM?STRETCH BOX TENDER?CM?to room to meet with patient for initial transition planning/care coordination?assessment.?RN?CM?introduced self and role at [facility].? Pt voices understanding and consents to?assessment?at this time.? Pt sitting up in chair in no distress at this time.? Pt is A/O at this time and answers all questions appropriately.?? Care providers, pharmacy, and demographics verified/updated at this time. PCP: Dr Bryan Rollins Specialists: none [facility] Insurance: [employer] Prescription Benefit:?Yes. Pt provided w/30-day free Eliquis trial offer card in addition to $10 co-pay card and instructed on use. LNOK: , September. Alexia PERDOMO Living Arrangements: Lives w/, son Pa, and daughter Vamshi in one-story home w/2 steps to enter. Pt reports being independent w/ADL's. and pt share home mgnt tasks. Transportation:?Pt states drives self and states no transportation concerns at this time.? also drives. DME: ? Denies using any DME and denies needs.? HHC/SNF: No hx of either. Pt has done OP therapy years ago after ankle fracture. Pt denies therapy needs. Pt wishes to return home and states has no concerns with going home at time of discharge. CM?to follow for any discharge planning/needs.? Pt voices no further concerns/needs at this time.? Advised pt to ask for?CM?if any further questions/concerns/needs arise.? Voices understanding. PLAN:??Home [place] BSN?RN?CM
[2025-03-14] VITALS (37 sets, daily range): BP systolic 81–129; BP diastolic 63–98; PULSE 91–172; RESP 15–28; TEMP 35.9–36.9; O2SAT 90–98; BMI 41.4
[2025-03-14 04:05] LABS: Hematocrit 44.4 % (40-54); Hemoglobin 14.8 g/dL (13.0-16.5); Immature Granulocytes Count 0.020 X10^3/uL (0.0-0.0); Mean Corp Hgb Conc 33.3 g/dL (32-36); Mean Corpuscular Volume 91.2 fL (80-94); Mean Platelet Vol. 10.7 fl (6.2-12.0); NRBC Flagged by Analyzer 0 % (0-5); Platelet Count 255 K/mm3 (150-450); RBC Distribution Width CV 12.8 % (11.6-14.6); RBC Distribution Width SD 42.5 fl (35.1-43.9); Red Blood Count 4.87 M/mm3 (4.6-6.2); White Blood Count 9.5 K/mm3 (4.4-11.0)
[2025-03-14] MEDS: 0.9% Saline Lock 10 ML Syringe IV ×4 (04:07→23:57)
[2025-03-14] MEDS: Digoxin 250 MCG/ML Ampul IV ×2 (04:07→06:11)
[2025-03-14 04:50] LABS: Anion Gap 10 (5-15); BUN 18 mg/dL (4-19); BUN/Creat Ratio 19.9 RATIO (10-20); Calcium,Total 9.2 mg/dL (7.6-11.0); Carbon Dioxide 22.3 mmol/L (21.0-32.0); Chloride 105 mmol/L (98-108); Estimated Creatinine Clearance 143.86 ml/min (50-250); Glucose 98 mg/dL (70-99); Potassium 4.8 mmol/L (3.3-5.1)
--- NOTE | 2025-03-14 07:30 | NURSING ---
0730 pt c/o chest pressure, he is pale and slty diaphoretic. he states he feels like he did when he came to the ER. HR in 130s w/increases to the 170s. [address] Butcher see physician notification 0745 meds given, labs drawn, EKG completed 0755 pt w/resolution of chest pressure, HR decreasing
[2025-03-14 08:56] LABS: Troponin T High Sensitivity 33 ng/L (<=22)
--- NOTE | 2025-03-14 09:43 | PCM.PN.HOSP ---
Subjective Subjective Remains in A-fib Objective Data Objective Data Vital Signs: Vital Signs Temp Pulse Resp BP Pulse Ox O2 Del Method O2 Flow Rate 96.7 F L 143 H 15 119/93 H 94 Room Air 2 03/14/25 04:00 03/14/25 09:14 03/14/25 07:30 03/14/25 09:14 03/14/25 07:30 03/14/25 07:30 03/14/25 03:00 Oxygen Flow Rate (L/min) 2 Oxygen Delivery Method Room Air Weight: 333 lb 8.95 oz Body Mass Index (BMI) 41.4 Intake & Output: Intake and Output for Last 24 Hours 03/13/25 03/14/25 03/15/25 03:59 03:59 03:59 Intake Total 2105.97 / 2110.97 525.00 / 525.00 Output Total 600 / 600 525 / 525 Balance 1505.97 / 1510.97 0 / 0 Lab / Micro Data 03/14/25 03:55 03/14/25 03:55 Labs: Laboratory Results - last 24 hr 03/14/25 03:55: WBC 9.5, RBC 4.87, Hgb 14.8, Hct 44.4, MCV 91.2, MCH 30.4, MCHC 33.3, RDW Std Deviation 42.5, RDW Coeff of Yudith 12.8, Plt Count 255, MPV 10.7, Immature Gran % (Auto) 0.200, Neut % (Auto) 65.8, Lymph % (Auto) 19.6, [place] % (Auto) 9.4, Eos % (Auto) 4.4, Baso % (Auto) 0.6, Absolute Neuts (auto) 6.2, Absolute Lymphs (auto) 1.86, Nucleated RBC % 0, Sodium 137, Potassium 4.8, Chloride 105, Carbon Dioxide 22.3, Anion Gap 10, BUN 18, Creatinine 0.89, Estim Creat Clear Calc 143.86, Est GFR (MDRD) Non-Af 99, BUN/Creatinine Ratio 19.9, Glucose 98, Calcium 9.2 03/14/25 08:15: Phosphorus 3.3, Troponin T High Sens 33 H Physical Exam Narrative General: Alert, Oriented x3, Cooperative, No apparent distress HEENT: Atraumatic, PERRLA, EOMI, Normocephalic Oral: Moist Mucosa Neck: Supple, No JVD Lungs: Diminished, Normal air movement, No rhonchi, No wheeze, No rales Cardiovascular: Irregular rate and rhythm, Normal S1, Normal S2, NAYAN Abdomen: Soft, Non Tender, Non-Distended, No Hepato-splenomegaly Extremities: No edema, Capillary Refill Less than 3 Seconds Skin: No rashes, No breakdown Musculoskeletal: No Tenderness to Palpation of Joints or Extremities Neurological: No focal neurological deficits, moves all extremities Psych/Mental Status: Normal Affect, Appropriate Assessment & Plan Assessment/Plan (1) Atrial fibrillation with rapid ventricular response: PLAN: Plan 1. A-fib with RVR/essential HTN/HLD ?Will increase metoprolol to 50 mg p.o. twice daily ? Appreciate cardiology's assistance ?Continue with Eliquis ? Echo with EF of 70% and severe concentric left ventricular hypertrophy ? TSH was unremarkable ? Will hold his lisinopril ? Continue with Lipitor ? Monitor make adjustments as necessary 2. Hypothyroidism ? Stable ? Continue Synthroid 3. Asthma ? Not in exacerbation ? Can continue with his home inhalers DVT: Eliquis Charges/Coding Visit Charges Inpatient E&M: 40367 Subs Hosp L2
[2025-03-14] MEDS: APIXABAN 5 MG TABLET PO (10:05)
--- NOTE | 2025-03-14 14:43 | PCM.PN.CARD ---
Subjective Subjective Seen and evaluated at bedside in ICU along with the nursing staff Sitting out in a chair he still have a fast heart rate/A-fib with RVR No symptoms of chest pain reported Objective Data Vital Signs: Vital Signs Temp Pulse Resp BP Pulse Ox O2 Del Method O2 Flow Rate 98.0 F 99 24 H 129/94 H 96 Room Air 2 03/14/25 08:00 03/14/25 11:00 03/14/25 11:00 03/14/25 11:00 03/14/25 11:00 03/14/25 11:00 03/14/25 03:00 Oxygen Flow Rate (L/min) 2 Oxygen Delivery Method Room Air Weight: 333 lb 8.95 oz Body Mass Index (BMI) 41.4 Intake & Output: Intake and Output for Last 24 Hours 03/12/25 03/13/25 03/14/25 23:59 23:59 23:59 Intake Total 1854.70 / 2079.70 776.27 / 776.27 240 / 240 Output Total 0 / 600 1125 / 1125 Balance 1854.70 / 1479.70 -348.73 / -348.73 240 / 240 Lab / Micro Data 03/14/25 03:55 03/14/25 03:55 Labs: Laboratory Results - last 24 hr 03/14/25 03:55: WBC 9.5, RBC 4.87, Hgb 14.8, Hct 44.4, MCV 91.2, MCH 30.4, MCHC 33.3, RDW Std Deviation 42.5, RDW Coeff of Yudith 12.8, Plt Count 255, MPV 10.7, Immature Gran % (Auto) 0.200, Neut % (Auto) 65.8, Lymph % (Auto) 19.6, [place] % (Auto) 9.4, Eos % (Auto) 4.4, Baso % (Auto) 0.6, Absolute Neuts (auto) 6.2, Absolute Lymphs (auto) 1.86, Nucleated RBC % 0, Sodium 137, Potassium 4.8, Chloride 105, Carbon Dioxide 22.3, Anion Gap 10, BUN 18, Creatinine 0.89, Estim Creat Clear Calc 143.86, Est GFR (MDRD) Non-Af 99, BUN/Creatinine Ratio 19.9, Glucose 98, Calcium 9.2 03/14/25 08:15: Phosphorus 3.3, Troponin T High Sens 33 H Cardiology Labs/Tests 03/14/25 03:55: WBC 9.5, RBC 4.87, Hgb 14.8, Hct 44.4, MCV 91.2, MCH 30.4, MCHC 33.3, Plt Count 255, MPV 10.7, Immature Gran % (Auto) 0.200, Neut % (Auto) 65.8, Lymph % (Auto) 19.6, [place] % (Auto) 9.4, Eos % (Auto) 4.4, Baso % (Auto) 0.6, Absolute Neuts (auto) 6.2, Nucleated RBC % 0, Sodium 137, Potassium 4.8, Chloride 105, Carbon Dioxide 22.3, Anion Gap 10, BUN 18, Creatinine 0.89, Est GFR (MDRD) Non-Af 99, BUN/Creatinine Ratio 19.9, Glucose 98, Calcium 9.2 03/14/25 08:15: Phosphorus 3.3 Rhythm: EKG: ECHO: Stress Test: Cardiac Cath: PCI: CT Surgery: Holter monitor: EPS: PPM: CXR: Chest CT Scan: Physical Exam Cardio Cardio Narrative: Underlying cardiac rhythm is A-fib with RVR Cardiac exam S1-S2 is irregular Chest exam diminished air entry bilateral with mild basal rales Examination lower extremity +2 lower extremity edema Assessment & Plan Assessment/Plan (1) Hypertension: (2) Hypothyroidism: (3) Hyperlipidemia: (4) Atrial fibrillation with rapid ventricular response: PLAN: Cardiac care plan recommendations; 59-year-old patient with history of hypertension, hypothyroidism, hyperlipidemia As A-fib with RVR. Has been on treatment with increasing dose of beta-trixie metoprolol to tartrate. Did not respond very well to the current medication with amiodarone, digoxin and calcium channel trixie On also noted his blood pressure was labile with a low blood pressure Patient has echocardiogram which showed severe LVH with enlarged left atrium and LVOT gradient. I discussed cardiac care plan in detail with the patient as well as the nursing staff and ICU 1. Will start on heparin and will hold Eliquis. Lasix 40 mg, IV patient and will monitor electrolytes including potassium magnesium and renal function. N.p.o. from midnight Plan of synchronized cardioversion/JUDY guided in the morning. Series of troponins mildly elevated likely secondary to A-fib with RVR Patient has no active symptoms of chest pain. Chula Butcher MD,FACC,[facility] banking and finance instructor
[2025-03-14 17:09] LABS: Partial Thromboplast Time 24.3 Seconds (24.1-36.2); Prothrombin Time (Protime)PT. 14.5 SECONDS (11.7-14.9)
[2025-03-14] MEDS: HEPARIN/D5w 25,000 UNITS 25,000 UNITS/250 ML IV.SOLN. 21.9 UNITS CONT INF (18:27)
[2025-03-15] VITALS (28 sets, daily range): BP systolic 92–156; BP diastolic 69–120; PULSE 62–123; RESP 13–24; TEMP 35.8–36.6; O2SAT 92–98; BMI 40.1
[2025-03-15 00:24] LABS: Partial Thromboplast Time 89.3 Seconds (24.1-36.2)
[2025-03-15 04:08] LABS: Hematocrit 45.5 % (40-54); Hemoglobin 15.3 g/dL (13.0-16.5); Immature Granulocytes Count 0.020 X10^3/uL (0.0-0.0); Mean Corp Hgb Conc 33.6 g/dL (32-36); Mean Corpuscular Volume 89.2 fL (80-94); Mean Platelet Vol. 11.0 fl (6.2-12.0); NRBC Flagged by Analyzer 0 % (0-5); Platelet Count 255 K/mm3 (150-450); RBC Distribution Width CV 12.5 % (11.6-14.6); RBC Distribution Width SD 41.1 fl (35.1-43.9); Red Blood Count 5.10 M/mm3 (4.6-6.2); White Blood Count 9.5 K/mm3 (4.4-11.0)
[2025-03-15 04:52] LABS: Anion Gap 12 (5-15); BUN 20 mg/dL (4-19); BUN/Creat Ratio 24.1 RATIO (10-20); Calcium,Total 9.2 mg/dL (7.6-11.0); Carbon Dioxide 23.8 mmol/L (21.0-32.0); Chloride 102 mmol/L (98-108); Estimated Creatinine Clearance 152.61 ml/min (50-250); Glucose 106 mg/dL (70-99); Magnesium 2.2 mg/dL (1.5-2.2); Potassium 4.1 mmol/L (3.3-5.1)
[2025-03-15] MEDS: HEPARIN/D5w 25,000 UNITS 25,000 UNITS/250 ML IV.SOLN. 20.4 UNITS CONT INF (06:29)
--- NOTE | 2025-03-15 07:13 | EKG12_ITS ---
Test Reason : POST DCCV Blood Pressure : */* mmHG Vent. Rate : 83 BPM Atrial Rate : 83 BPM P-R Int : 162 ms QRS Dur : 92 ms QT Int : 376 ms P-R-T Axes : 66 -21 136 degrees QTcB Int : 441 ms Normal sinus rhythm Possible Left atrial enlargement Left ventricular hypertrophy with repolarization abnormality ( R in aVL , [place] product , Romhilt-Cruz ) Cannot rule out Septal infarct , age undetermined Abnormal ECG When compared with ECG of 15-Mar-2025 07:59, MANUAL COMPARISON REQUIRED DATA IS UNCONFIRMED Confirmed by SINDHU LEDESMA, DYLAN ([id number]), photo editor ANGI PATRICIO ([id number]) on 03/16/2025 8:14:21 AM Referred By: Confirmed By: DYLAN MANLEY MD
--- NOTE | 2025-03-15 07:13 | ECHOTEE_ITS ---
Reason For Study Reason For Study: AFIB/FLUTTER Medication JUDY probe 6VT-D (SN [id number]) passed with minimal difficulty. No complications were noted. Cetacaine Topical [place] given X3 orally. Versed 3 mg given slow IVP. Fentanyl 50 mcg given slow IVP. Performed a rapid injection of agitated mix of 9 cc saline and 1cc air to assess for atrial septal defect. Left Ventricle Normal left ventricle. Moderate concentric left ventricular hypertrophy. Left ventricular systolic function is normal. The left ventricular ejection fraction is 65 %. No regional wall motion abnormalities noted. Right Ventricle Normal RV size. Normal systolic function. Atria Bubble contrast study is negative for PFO/ASD. The left atrium is moderately enlarged. No thrombus is detected in the left atrial appendage. There is mild sponatenous contrast in the left atrium. Normal right atrium. Mitral Valve Normal mitral valve. Tricuspid Valve Normal tricuspid valve. Aortic Valve Normal aortic valve. Trisinus/trileaflet aortic valve. Pulmonic Valve Normal pulmonic valve. Vessels Normal aortic root. Normal arch. The pulmonary artery is normal size. Pulmonary venous flow normal. Pericardium No pericardial effusion. ECHO/Echo Transesophageal (JUDY) Interpretation Summary Normal left ventricle. Left ventricular systolic function is normal. The left ventricular ejection fraction is 65 %. Bubble contrast study is negative for PFO/ASD. The left atrium is moderately enlarged. Moderate concentric left ventricular hypertrophy. Ordering Physician: Noa^Endy^^^ Performed By: Gaurav Wu RCS
--- NOTE | 2025-03-15 07:14 | PCM.PN.CARD ---
Subjective Subjective Patient seen and evaluated. Still in atrial fibrillation and tachycardic. Objective Data Vital Signs: Vital Signs Temp Pulse Resp BP Pulse Ox O2 Del Method O2 Flow Rate 98.4 F 106 H 14 113/79 95 Room Air 2 03/14/25 20:00 03/15/25 05:00 03/15/25 05:00 03/15/25 05:00 03/15/25 05:00 03/15/25 05:00 03/14/25 03:00 Oxygen Flow Rate (L/min) 2 Oxygen Delivery Method Room Air Weight: 322 lb 15.635 oz Body Mass Index (BMI) 40.1 Intake & Output: Intake and Output for Last 24 Hours 03/13/25 03/14/25 03/15/25 23:59 23:59 23:59 Intake Total 776.27 / 776.27 240 / 840 850.00 / 850.00 Output Total 1125 / 1125 2000 / 3000 1350 / 1350 Balance -348.73 / -348.73 -1760 / -2160 -500.00 / -500.00 Lab / Micro Data 03/15/25 04:00 03/15/25 04:00 Labs: Laboratory Results - last 24 hr 03/14/25 08:15: Phosphorus 3.3, Troponin T High Sens 33 H 03/14/25 16:45: PT 14.5, INR 1.1, APTT 24.3 03/14/25 23:58: APTT 89.3 H 03/15/25 04:00: WBC 9.5, RBC 5.10, Hgb 15.3, Hct 45.5, MCV 89.2, MCH 30.0, MCHC 33.6, RDW Std Deviation 41.1, RDW Coeff of Yudith 12.5, Plt Count 255, MPV 11.0, Immature Gran % (Auto) 0.200, Neut % (Auto) 60.9, Lymph % (Auto) 22.3, [place] % (Auto) 9.8, Eos % (Auto) 6.0 H, Baso % (Auto) 0.8, Absolute Neuts (auto) 5.8, Absolute Lymphs (auto) 2.12, Nucleated RBC % 0, Sodium 137, Potassium 4.1, Chloride 102, Carbon Dioxide 23.8, Anion Gap 12, BUN 20 H, Creatinine 0.83, Estim Creat Clear Calc 152.61, Est GFR (MDRD) Non-Af 101, BUN/Creatinine Ratio 24.1 H, Glucose 106 H, Calcium 9.2, Phosphorus 4.1, Magnesium 2.2 Cardiology Labs/Tests 03/14/25 08:15: Phosphorus 3.3 03/14/25 16:45: PT 14.5, INR 1.1, APTT 24.3 03/14/25 23:58: APTT 89.3 H 03/15/25 04:00: WBC 9.5, RBC 5.10, Hgb 15.3, Hct 45.5, MCV 89.2, MCH 30.0, MCHC 33.6, Plt Count 255, MPV 11.0, Immature Gran % (Auto) 0.200, Neut % (Auto) 60.9, Lymph % (Auto) 22.3, [place] % (Auto) 9.8, Eos % (Auto) 6.0 H, Baso % (Auto) 0.8, Absolute Neuts (auto) 5.8, Nucleated RBC % 0, Sodium 137, Potassium 4.1, Chloride 102, Carbon Dioxide 23.8, Anion Gap 12, BUN 20 H, Creatinine 0.83, Est GFR (MDRD) Non-Af 101, BUN/Creatinine Ratio 24.1 H, Glucose 106 H, Calcium 9.2, Phosphorus 4.1, Magnesium 2.2 Rhythm: EKG: ECHO: Stress Test: Cardiac Cath: PCI: CT Surgery: Holter monitor: EPS: PPM: CXR: Chest CT Scan: Physical Exam Const alert, oriented x3 and no apparent distress General Appearance: cooperative HEENT hearing grossly normal bilaterally Head and Scalp: atraumatic Eyes EOMs intact bilaterally Neck General: normal visual inspection Chest inspection of chest normal and palpation of chest normal Resp normal respiratory effort Auscultation: clear to auscultation bilaterally Cardio S1 normal heart sound and S2 normal heart sound Jugular Venous Distention: JVD Rhythm: abnormal rhythm irregularly irregular GI normal to inspection, nondistended, normoactive bowel sounds Extremity normal capillary refill and no pedal edema Peripheral Pulses: Yes pulses 2+ throughout and femoral pulses present Skin no rashes or lesions noted Neuro oriented x3 and CN's II-XII intact bilaterally Psych Appearance: grossly normal and appropriate Assessment & Plan Assessment/Plan (1) Atrial fibrillation with rapid ventricular response: PLAN: Patient presents with atrial fibrillation with a rapid ventricular response rate and difficult to control rate. It appears that he has been an Eliquis which was then discontinued he was put on heparin and he was given Cardizem and now on beta-trixie. His echocardiogram does demonstrate severe LVH. My recommendation will be for him to restart the Eliquis at 5 mg twice a day He will receive a dose of intravenous amiodarone He should be scheduled for a JUDY guided cardioversion later today and then he will be continued with p.o. metoprolol 100 mg twice a day and amiodarone 200 mg once a day if he is cardioverted. (2) Hypertension: PLAN: This to be evaluated after his cardioversion. PLAN: Plan Patient is noted to have a rather thickened myocardium. He may need a cardiac MRI as an outpatient to exclude hypertrophic cardiomyopathy.
--- NOTE | 2025-03-15 07:54 | PCM.PN.HOSP ---
Subjective Subjective Doing well says that the Xanax helped a lot yesterday Objective Data Objective Data Vital Signs: Vital Signs Temp Pulse Resp BP Pulse Ox O2 Del Method O2 Flow Rate 98.4 F 102 H 13 126/73 H 97 Room Air 2 03/14/25 20:00 03/15/25 07:00 03/15/25 07:00 03/15/25 07:00 03/15/25 07:00 03/15/25 07:00 03/14/25 03:00 Oxygen Flow Rate (L/min) 2 Oxygen Delivery Method Room Air Weight: 322 lb 15.635 oz Body Mass Index (BMI) 40.1 Intake & Output: Intake and Output for Last 24 Hours 03/14/25 03/15/25 03/16/25 03:59 03:59 03:59 Intake Total 525.00 / 525.00 1005.35 / 1005.35 84.65 / 84.65 Output Total 525 / 525 3000 / 3000 350 / 350 Balance 0 / 0 -1994.65 / -1994.65 -265.35 / -265.35 Lab / Micro Data 03/15/25 04:00 03/15/25 04:00 Labs: Laboratory Results - last 24 hr 03/14/25 08:15: Phosphorus 3.3, Troponin T High Sens 33 H 03/14/25 16:45: PT 14.5, INR 1.1, APTT 24.3 03/14/25 23:58: APTT 89.3 H 03/15/25 04:00: WBC 9.5, RBC 5.10, Hgb 15.3, Hct 45.5, MCV 89.2, MCH 30.0, MCHC 33.6, RDW Std Deviation 41.1, RDW Coeff of Yudith 12.5, Plt Count 255, MPV 11.0, Immature Gran % (Auto) 0.200, Neut % (Auto) 60.9, Lymph % (Auto) 22.3, [place] % (Auto) 9.8, Eos % (Auto) 6.0 H, Baso % (Auto) 0.8, Absolute Neuts (auto) 5.8, Absolute Lymphs (auto) 2.12, Nucleated RBC % 0, Sodium 137, Potassium 4.1, Chloride 102, Carbon Dioxide 23.8, Anion Gap 12, BUN 20 H, Creatinine 0.83, Estim Creat Clear Calc 152.61, Est GFR (MDRD) Non-Af 101, BUN/Creatinine Ratio 24.1 H, Glucose 106 H, Calcium 9.2, Phosphorus 4.1, Magnesium 2.2 Physical Exam Narrative General: Alert, Oriented x3, Cooperative, No apparent distress HEENT: Atraumatic, PERRLA, EOMI, Normocephalic Oral: Moist Mucosa Neck: Supple, No JVD Lungs: Diminished, Normal air movement, No rhonchi, No wheeze, No rales Cardiovascular: Irregular rate and rhythm, Normal S1, Normal S2, NAYAN Abdomen: Soft, Non Tender, Non-Distended, No Hepato-splenomegaly Extremities: No edema, Capillary Refill Less than 3 Seconds Skin: No rashes, No breakdown Musculoskeletal: No Tenderness to Palpation of Joints or Extremities Neurological: No focal neurological deficits, moves all extremities Psych/Mental Status: Normal Affect, Appropriate Assessment & Plan Assessment/Plan (1) Atrial fibrillation with rapid ventricular response: PLAN: Plan 1. A-fib with RVR/essential HTN/HLD ? Continue with metoprolol 75 mg p.o. twice daily ? Appreciate cardiology's assistance, we will trial him on a bolus dose of amiodarone may need JUDY and cardioversion later today if that does not work ?Continue with Eliquis ? Echo with EF of 70% and severe concentric left ventricular hypertrophy ? TSH was unremarkable ? Will hold his lisinopril ? Continue with Lipitor 2. Hypothyroidism ? Stable ? Continue Synthroid 3. Asthma ? Not in exacerbation ? Can continue with his home inhalers DVT: [place] Charges/Coding Visit Charges Inpatient E&M: 13472 Subs Hosp L2
[2025-03-15] MEDS: Amiodarone 300 MG in Dextrose 5%-Water (100mL Bag) 100 ML 600 MG IV BOLUS (08:18)
[2025-03-15] MEDS: APIXABAN 5 MG TABLET PO ×2 (09:20→21:49)
--- NOTE | 2025-03-15 09:25 | NURSING ---
Patient left unit to labor relations officer, report given to Lluvia VEGA. All questions and concerns answered.
--- NOTE | 2025-03-15 12:28 | EKG12_ITS ---
Test Reason : PRE CARDIOVERSION Blood Pressure : */* mmHG Vent. Rate : 126 BPM Atrial Rate : * BPM P-R Int : * ms QRS Dur : 94 ms QT Int : 256 ms P-R-T Axes : * -32 166 degrees QTcB Int : 370 ms Atrial fibrillation with rapid ventricular response Left axis deviation Left ventricular hypertrophy ( R in aVL , [place] product , Romhilt-Cruz ) Marked ST abnormality, possible inferolateral subendocardial injury Abnormal ECG When compared with ECG of 14-Mar-2025 07:46, MANUAL COMPARISON REQUIRED DATA IS UNCONFIRMED Confirmed by SINDHU LEDESMA, DYLAN ([id number]), science editor VIKA HUNTER ([id number]) on 03/17/2025 8:54:15 AM Referred By: SINDHU Confirmed By: DYLAN MANLEY MD
--- NOTE | 2025-03-15 12:29 | PCM.OP.PRO2 ---
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 The patient was seen by Dr. Rollins of the critical care division. The patient was then brought into the cardiac catheterization lab in the postabsorptive nonsedated state. Informed consent was obtained. Anterior posterior pads were applied. He was administered 80 mg of intravenous propofol. 300 J of synchronized DC biphasic cardioversion energy were applied with prompt reversal to sinus rhythm. Patient tolerated the procedure well. Procedure findings: Successful DC cardioversion from atrial fibrillation to sinus rhythm
--- NOTE | 2025-03-15 12:54 | PRO.PCM_ITS ---
Procedures Pulmonary Pulmonary Procedures /Diagnostic Testin Con Sedation Non-invasive Procedural Procedure Information Date of Procedure: 03/15/25 Description of procedure: CONSCIOUS SEDATION REPORT DATE OF SERVICE: March 15, 2025 BRIEF HISTORY OF PRESENT ILLNESS: The patient is a 59-year-old male, currently admitted to [facility], after presenting with atrial fibrillation with RVR. The patient has never previously undergone a cardioversion. He does report that he was tested for obstructive sleep apnea and was apparently negative. He has never been diagnosed with COPD or asthma. His last echocardiogram demonstrated an ejection fraction of approximately 65%. PHYSICAL EXAMINATION: VITAL SIGNS: Reviewed and were acceptable. GENERAL: The patient is a morbidly obese male, in no apparent distress, speaking in full sentences. HEENT: Normocephalic, atraumatic. Mucous membranes are moist and pink. Good mouth opening noted. Trachea is midline. Good neck mobility. CHEST: S1, S2 irregularly irregular. No murmurs, rubs or gallops were noted. LUNGS: Clear to auscultation bilaterally without appreciable wheezes, rales or rhonchi. ABDOMEN: Soft, nontender, nondistended. Positive bowel sounds. EXTREMITIES: There is no clubbing or cyanosis. Trace lower extremity edema is present. ASA Class: II DESCRIPTION OF PROCEDURE: After confirmation of informed consent, the patient's anesthesia plan was reviewed in detail. Propofol was chosen. Risks and benefits were reviewed and the patient agreed to proceed. At 1219, the patient was given his first bolus of propofol. In total, the patient required 80 mg of propofol to achieve an appropriate level of sedation, after which time, he was given a 300 J synchronized cardioversion by Dr. Latham at the bedside. This was successful in achieving normal sinus rhythm. The patient was monitored until 1234, at which time he reached his baseline mental status and function. The patient tolerated the procedure well. COMPLICATIONS: None ESTIMATED BLOOD LOSS: None RECOMMENDATIONS: Okay to recover in usual fashion.
--- NOTE | 2025-03-15 13:15 | NURSING ---
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 Patient HR 78 in normal sinus rhythm. Patient denies all pain and shortness of breath. Patient A&OX4. Diet order placed and heparin gtt infusing per MD order. Clarified with Dr. Latham, heparin gtt to be stopped at 1430.
[2025-03-16] VITALS (14 sets, daily range): BP systolic 98–146; BP diastolic 56–99; PULSE 61–70; RESP 15–24; TEMP 36.1–36.7; O2SAT 90–98; BMI 40.0
--- NOTE | 2025-03-16 07:53 | DCINST_ITS ---
Discharge Instructions DC O2, CPAP, BIPAP needs Home O2 Discharge instructions: No Dressing / Incision Discharge Activity: Return to Normal Activity Dressing / Incision Call your doctor if you observe: Fever of 101 or Higher, Shortness of breath, Dizziness, Fainting spells, Swelling in the ankles, Chest pain and Increased palpitations (irregular heartbeat) Follow Up Care Test Results: Test results from this visit will be discussed in further detail at your follow- up appointment, if applicable. Discharge Plan Admission Admit Date/Time: 03/12/25 08:12 Attending Provider: Joselito Chan Primary Care Provider: Bryan Rollins Consulting Providers: Chula Butcher Instructions Patient Instructions: AFib Dc Discharge Orders/Prescriptions Prescriptions: New metoprolol tartrate 100 mg Tablet 100 mg PO BID 30 Days Qty: 60 0RF amiodarone 200 mg Tablet 200 mg PO BID 30 Days Qty: 60 0RF Rx Instructions: Take 1 tablet twice daily for 7 days then take 1 tablet daily Eliquis 5 mg Tablet 5 mg PO BID 30 Days Qty: 60 0RF Continued atorvastatin 20 mg tablet 20 mg PO DAILY levothyroxine 75 mcg tablet 75 mcg PO DAILY lisinopril 10 mg tablet 10 mg PO DAILY levalbuterol tartrate 45 mcg/actuation HFA aerosol inhaler 1 inh inhalation Q4H PRN (Reason: shortness of breath or wheezing) Pulmicort Flexhaler 90 mcg/actuation aerosol powdr breath activated 2 inh INHALATION Q12.TCU cetirizine [All Day Allergy (cetirizine)] 10 mg tablet 10 mg PO DAILY PRN (Reason: allergy symptoms) Referrals / Follow Up: Endy Latham MD [Med Staff - Active Staff, Cardiology] - Within 1 Month Bryan Rollins MD [Primary Care Provider, Medical] - Within 1 Week Disposition Disposition (needs filled in before D/C Order can be placed): Home, Self Care
[2025-03-16] MEDS: APIXABAN 5 MG TABLET PO (09:00)
--- NOTE | 2025-03-16 09:22 | CASEMGMT ---
Pt has an order for DC placed. Pt has a new Rx for Eliquis. GARY CM to the pt's room at this time who states that he still has the savings cards provided. Pt states that he has already been in contact with his insurance and pharmacy and that his co-pay is 60$. Pt denies concerns. Pt denies any further DC needs and states that he feels safe returning home today.
--- NOTE | 2025-03-16 09:37 | PCM.DC.SUM ---
Providers Date of Admission: 03/12/25 Primary Care Physician: Dr. Bryan Rollins MD Consultations 03/12/25 14:48 Consult: Cardiology Routine Consulting Provider: Chula Butcher Reason for Consult: Afib EMERGENT Consult: No MD Notified: Yes Date Notified: 03/12/25 Time Notified: 14:48 Method of Notification: Verbal Reason For Visit: NEW AFIB Diagnosis Discharge Diagnosis (1) Atrial fibrillation with rapid ventricular response: Status: Acute Code(s): I48.91 - Unspecified atrial fibrillation (2) Hypertension: Status: Chronic Code(s): I10 - Essential (primary) hypertension Medications at Discharge Home Medications atorvastatin 20 mg tablet 20 mg PO DAILY 03/12/25 budesonide 90 mcg/actuation breath activated powder inhaler (Pulmicort Flexhaler) 2 inh inhalation Q12.TCU 03/12/25 levalbuterol tartrate 45 mcg/actuation aerosol inhaler 1 inh inhalation Q4H PRN shortness of breath or wheezing 03/12/25 levothyroxine 75 mcg tablet 75 mcg PO DAILY 03/12/25 lisinopril 10 mg tablet 10 mg PO DAILY 03/12/25 Held on 03/16/25. Instructions: Resume on 03/24/25. cetirizine 10 mg tablet (All Day Allergy (cetirizine)) 10 mg PO DAILY PRN allergy symptoms 03/13/25 amiodarone 200 mg tablet 200 mg PO BID 30 days #60 tabs 03/16/25 apixaban 5 mg tablet (Eliquis) 5 mg PO BID 30 days #60 tabs 03/16/25 metoprolol tartrate 100 mg tablet 100 mg PO BID 30 days #60 tabs 03/16/25 Hospital Course Operations None Procedures 2-D Echocardiogram and Cardioversion Summary of Care Provided Minutes Spent on Discharge: 36 Hospital Course: Per HPI: PAULINA WESTBROOK, is a 59 M who presents to the hospital with palpitations. In the emergency room and is found to be in A-fib with RVR, and he states he has never been diagnosed with A-fib before but now that he knows that these are palpitations he says that he has felt those before therefore cannot cardiovert him as he needs to be on anticoagulation. Emergency room physician discussed the case with cardiology who requested Cardizem drip and heparin drip. Will obtain an echocardiogram. Denies any chest pain or lightheadedness. TSH in the emergency room was 5.7 he is on Synthroid. Hospital Course: 1. A-fib with RVR/essential HTN/HLD?59-year-old male presented to the hospital with A-fib with RVR. He has never had it be discontent before but he has noted palpitations in the past therefore he was admitted and placed on anticoagulation. He did have an initial echo with a normal EF and severe concentric ventricular hypertrophy on the left. We did have difficulty managing his blood pressures while on the Cardizem drip so he did have to be admitted to the ICU for Levophed drip to try to control his heart rate. He was anticoagulated for 3 days and then had a JUDY cardioversion on Saturday. He tolerated the procedure well, the JUDY confirmed the findings of the transthoracic echo however also noted that the left atrium was moderately enlarged consistent with his A-fib. I discussed with him the plan for discharge today and he expressed understanding of the risks and benefits of going home and he would like to go home today. Thyroid functioning's were unremarkable, he was placed on ultimately 100 mg metoprolol p.o. twice daily which she has tolerated. We also placed him on amiodarone 200 mg p.o. twice daily for a week and then he is to drop this down to 200 mg p.o. daily. Will also continue with Eliquis at 5 mg p.o. twice daily. I recommended he follow-up with his PCP in 3 to 5 days and follow-up with cardiology within a month. Will hold his lisinopril on discharge which can be restarted as an outpatient if his blood pressures tolerate it. 2. Hypothyroidism, asthma chronic medical conditions which complicate his care. His home medications were continued where appropriate Physical Exam Narrative General: Alert, Oriented x3, Cooperative, No apparent distress HEENT: Atraumatic, PERRLA, EOMI, Normocephalic Oral: Moist Mucosa Neck: Supple, No JVD Lungs: Diminished, Normal air movement, No rhonchi, No wheeze, No rales Cardiovascular: Regular rate and rhythm, Normal S1, Normal S2, no murmur Abdomen: Soft, Non Tender, Non-Distended, No Hepato-splenomegaly Extremities: No edema, Capillary Refill Less than 3 Seconds Skin: No rashes, No breakdown Musculoskeletal: No Tenderness to Palpation of Joints or Extremities Neurological: No focal neurological deficits, moves all extremities Psych/Mental Status: Normal Affect, Appropriate Weight / BMI Weight Weight: 322 lb 1.526 oz Body Mass Index (BMI) 40.0 ABG / Lab / Microbiology Data 03/15/25 04:00 03/15/25 04:00 Radiography Diagnostic Testing: Radiology Impression Transesophageal Echocardiogram 03/15/25 07:13 Interpretation Summary Normal left ventricle. Left ventricular systolic function is normal. The left ventricular ejection fraction is 65 %. Bubble contrast study is negative for PFO/ASD. The left atrium is moderately enlarged. Moderate concentric left ventricular hypertrophy. Ordering Physician: Noa^Endy^^^ Performed By: Gaurav Wu RCS D/C Instructions Call your doctor if you observe: Fever of 101 or Higher, Shortness of breath, Dizziness, Fainting spells, Swelling in the ankles, Chest pain and Increased palpitations (irregular heartbeat) DC O2, CPAP, BIPAP Needs Home O2 Discharge instructions: No Meaningful Use Info Meaningful Use Meaningful Use Diagnoses (Choose all that apply): None applicable Discharge Plan Admission Admit Date/Time: 03/12/25 08:12 Attending Provider: Joselito Chan Primary Care Provider: Bryan Rollins Consulting Providers: Chula Butcher Instructions Patient Instructions: AFib Dc Discharge Orders/Prescriptions Prescriptions: New metoprolol tartrate 100 mg Tablet 100 mg PO BID 30 Days Qty: 60 0RF amiodarone 200 mg Tablet 200 mg PO BID 30 Days Qty: 60 0RF Rx Instructions: Take 1 tablet twice daily for 7 days then take 1 tablet daily Eliquis 5 mg Tablet 5 mg PO BID 30 Days Qty: 60 0RF Continued atorvastatin 20 mg tablet 20 mg PO DAILY levothyroxine 75 mcg tablet 75 mcg PO DAILY levalbuterol tartrate 45 mcg/actuation HFA aerosol inhaler 1 inh inhalation Q4H PRN (Reason: shortness of breath or wheezing) Pulmicort Flexhaler 90 mcg/actuation aerosol powdr breath activated 2 inh INHALATION Q12.TCU cetirizine [All Day Allergy (cetirizine)] 10 mg tablet 10 mg PO DAILY PRN (Reason: allergy symptoms) Held lisinopril 10 mg tablet 10 mg PO DAILY Hold Instructions: Resume on 03/24/25. Referrals / Follow Up: Endy Latham MD [Med Staff - Active Staff, Cardiology] - Within 1 Month Bryan Rollins MD [Primary Care Provider, Medical] - Within 1 Week Disposition Disposition (needs filled in before D/C Order can be placed): Home, Self Care Charges/Coding Visit Charges Inpatient E&M: 39143 Disch Hosp >30min
--- NOTE | 2025-03-16 11:18 | PHA.DC_ITS ---
Pharmacy [facility] Counseling Pharmacy Service has performed discharge medication reconciliation and counseling for this patient. The patient's discharge medication list was reviewed for discrepancies and discrepancies were resolved. The patient was counseled on the following discharge medications and changes in medications for homegoing were reviewed. The Reason for Use, instructions for use, and potential side effects were reviewed for all new medications. The patient's questions regarding all of their medications were answered. 1. Apixaban 5 mg PO BID 2. Metoprolol tartrate 100 mg PO BID 3. Amiodarone 200 mg PO BID x 7 days then daily thereafter The patient was able to verbally demonstrate an understanding of their discharge medications. Medications at Discharge Home Medications atorvastatin 20 mg tablet 20 mg PO DAILY 03/12/25 budesonide 90 mcg/actuation breath activated powder inhaler (Pulmicort Flexhaler) 2 inh inhalation Q12.TCU 03/12/25 levalbuterol tartrate 45 mcg/actuation aerosol inhaler 1 inh inhalation Q4H PRN shortness of breath or wheezing 03/12/25 levothyroxine 75 mcg tablet 75 mcg PO DAILY 03/12/25 lisinopril 10 mg tablet 10 mg PO DAILY 03/12/25 Held on 03/16/25. Instructions: Resume on 03/24/25. cetirizine 10 mg tablet (All Day Allergy (cetirizine)) 10 mg PO DAILY PRN allergy symptoms 03/13/25 amiodarone 200 mg tablet 200 mg PO BID 30 days #60 tabs 03/16/25 apixaban 5 mg tablet (Eliquis) 5 mg PO BID 30 days #60 tabs 03/16/25 metoprolol tartrate 100 mg tablet 100 mg PO BID 30 days #60 tabs 03/16/25
== END 2025-03-16 12:55 | disposition home or self-care (01) | DRG 309 ==
LOC: ED 08:06 → PCU 08:52 → ICU 19:55
PROVIDERS: Internal Medicine Interventional Cardiology; Admitting Provider Family Medicine; Emergency Provider Emergency Medicine; PCP Family Medicine; Visit Provider Family Medicine
DX: I48.91 Unspecified atrial fibrillation (principal); Z68.41 Body mass index [BMI] 40.0-44.9, adult; I47.20 Ventricular tachycardia, unspecified; E03.9 Hypothyroidism, unspecified; J45.909 Unspecified asthma, uncomplicated; I10 Essential (primary) hypertension; E66.01 Morbid (severe) obesity due to excess calories; E78.5 Hyperlipidemia, unspecified; I95.9 Hypotension, unspecified; R79.89 Other specified abnormal findings of blood chemistry; Z79.890 Hormone replacement therapy; Z79.01 Long term (current) use of anticoagulants; Z79.51 Long term (current) use of inhaled steroids; Z79.899 Other long term (current) drug therapy
CPT/HCPCS: 36415; 80048; 83735; 84100; 84443; 84484; 85025; 85610; 85730; 92960; 93005; 93306; 93312; 93320; 93325; 99285; Q9957; A4216; C8929; J1938

== ENCOUNTER 2025-03-28 14:20 | Inpatient (IN) | payer BC, SELFPAY ==
[2025-03-28] VITALS (12 sets, daily range): BP systolic 120–158; BP diastolic 70–86; PULSE 52–71; RESP 16–25; TEMP 36.6–37.2; O2SAT 94–100; BMI 44.8; BMI 42.1
--- NOTE | 2025-03-28 14:43 | EKG12_ITS ---
Test Reason : SOB Blood Pressure : */* mmHG Vent. Rate : 57 BPM Atrial Rate : 57 BPM P-R Int : 152 ms QRS Dur : 102 ms QT Int : 470 ms P-R-T Axes : 49 -10 112 degrees QTcB Int : 457 ms Sinus bradycardia Possible Left atrial enlargement Left ventricular hypertrophy with repolarization abnormality ( R in aVL ) Abnormal ECG Confirmed by SINDHU LEDESMA, DYLAN ([id number]), photograph editor VIKA HUNTER ([id number]) on 03/30/2025 7:47:46 AM Referred By: ER/UG Confirmed By: DYLAN MANLEY MD
--- NOTE | 2025-03-28 14:43 | RAD_ITS ---
EXAM: XR Chest, 2 Views CLINICAL INDICATION: DYSPNEA, ORTHOPNEA, PEDAL EDEMA, BIBASILAR RALES TECHNIQUE: Frontal and lateral views of the chest. COMPARISON: No relevant prior studies available. FINDINGS: LUNGS AND PLEURAL SPACES: See below. HEART: Cardiomegaly with pulmonary congestion and edema. Superimposed pneumonia cannot be excluded. MEDIASTINUM: Unremarkable. Normal mediastinal contour. BONES/JOINTS: Unremarkable. No acute fracture. RAD/Chest PA and Lateral IMPRESSION: Cardiomegaly with pulmonary congestion and edema. Superimposed pneumonia cannot be excluded. Reading Location: [id number]
[2025-03-28 15:00] LABS: Hematocrit 39.5 % (40-54); Hemoglobin 13.1 g/dL (13.0-16.5); Immature Granulocytes Count 0.020 X10^3/uL (0.0-0.0); Mean Corp Hgb Conc 33.2 g/dL (32-36); Mean Corpuscular Volume 91.6 fL (80-94); Mean Platelet Vol. 10.8 fl (6.2-12.0); NRBC Flagged by Analyzer 0 % (0-5); Platelet Count 378 K/mm3 (150-450); RBC Distribution Width CV 12.9 % (11.6-14.6); RBC Distribution Width SD 42.5 fl (35.1-43.9); Red Blood Count 4.31 M/mm3 (4.6-6.2); White Blood Count 9.1 K/mm3 (4.4-11.0)
[2025-03-28 15:39] LABS: Anion Gap 9 (5-15); BUN 18 mg/dL (4-19); BUN/Creat Ratio 17.5 RATIO (10-20); Calcium,Total 8.8 mg/dL (7.6-11.0); Carbon Dioxide 28.1 mmol/L (21.0-32.0); Chloride 105 mmol/L (98-108); Estimated Creatinine Clearance 131.83 ml/min (50-250); Glucose 91 mg/dL (70-99); Potassium 4.2 mmol/L (3.3-5.1); Pro- Brain NATRIURETIC PEPTIDE 2392 pg/mL (<=900); Troponin T High Sensitivity 16 ng/L (<=22)
--- NOTE | 2025-03-28 16:50 | ED.VIS.DYS ---
HPI History of Present Illness Chief Complaint: Shortness of Breath Detail of Chief Complaint: Shortness of breath that started last evening. Informant: patient Onset/Context/Timing Onset: Yesterday Context: sudden and rest Timing: Continuous Quality: Positive for Dyspnea on exertion and Orthopnea; Negative for PND or Wheezing Current Severity: Mild Maximum Severity: Severe Worsened by: Exertion and Lying flat Relieved by: Nothing Associated Symptoms Negative for cough, rhinorrhea, post nasal drip, ear pain, fever, sore throat, subjective, chills, sweats, clear sputum, white sputum, yellow sputum or green sputum Chest Pain: Positive for None Narrative Narrative: Patient is a 59-year-old male. He was recently admitted for A-fib with RVR and underwent cardioversion. He is presently on amiodarone, metoprolol and Eliquis. He has had swelling of his legs for some time. He states last evening became short of breath. His heart was not beating fast or irregularly. He was unable to lie flat in bed. He states he took a 40 mg Lasix tablet that was prescribed for his . He states when he was in the hospital he was given Lasix and he felt much better. He denies fever, chills night sweats. He denies rhinorrhea, postnasal drainage or sore throat. He denies cough or sputum production. He denies chest tightness, pressure or heaviness. He denies abdominal pain, nausea, vomiting or diarrhea. He denies black or maroon-colored stool. Denies blood in his stool. PE Risk Factors: Negative for Cancer, OCP + Smoking + > 35, Prior DVT or PE, Recent immobilization, Recent surgery or Recent travel Prior similar symptoms: Yes (A-fib RVR) Recent Illness/Hospitalization: Yes [facility] Medical History Atrial fibrillation with rapid ventricular response HTN (hypertension) Kidney stones Home Medications ?Medication ?Instructions ?Recorded ?Last Taken ?Type atorvastatin 20 mg tablet 20 mg PO DAILY 03/12/25 Unknown History budesonide 90 mcg/actuation breath 2 inh inhalation Q12.TCU 03/12/25 Unknown History activated powder inhaler (Pulmicort Flexhaler) levalbuterol tartrate 45 1 inh inhalation Q4H PRN shortness 03/12/25 Unknown History mcg/actuation aerosol inhaler of breath or wheezing levothyroxine 75 mcg tablet 75 mcg PO DAILY 03/12/25 Unknown History lisinopril 10 mg tablet 10 mg PO DAILY 03/12/25 Unknown History cetirizine 10 mg tablet (All Day 10 mg PO DAILY PRN allergy symptoms 03/13/25 Unknown History Allergy (cetirizine)) amiodarone 200 mg tablet 200 mg PO BID 30 days #60 tabs 03/16/25 Unknown Rx apixaban 5 mg tablet (Eliquis) 5 mg PO BID 30 days #60 tabs 03/16/25 Unknown Rx metoprolol tartrate 100 mg tablet 100 mg PO BID 30 days #60 tabs 03/16/25 Unknown Rx Allergy/AdvReac Type Severity Reaction Status Date / Time No Known Allergies Allergy Verified 03/28/25 14:23 Family History Other Heart disease Surgical History H/O umbilical hernia repair Social History household members: spouse current occupational status: employed Smoking Status: Never smoker ROS ROS ED Constitutional Constitutional ED: Denies chills, fever(s), sweats or weight loss Eyes Eyes: Denies blurry vision or change in vision ENT ENT ED: Denies ear pain or rhinorrhea Cardiovascular Cardiovascular: Reports orthopnea; Denies chest pain, palpitations or paroxysmal nocturnal dyspnea Respiratory/Chest Respiratory/Chest: Reports dyspnea, dyspnea on exertion and orthopnea; Denies cough or paroxysmal nocturnal dyspnea Gastrointestinal Gastrointestinal: Denies abdominal pain, diarrhea, melena, nausea or vomiting Genitourinary Genitourinary ED: Reports other Details: Patient states he urinated 3 times since taking the Lasix. ; Denies dysuria, hematuria or urinary frequency Musculoskeletal Musculoskeletal: Denies arthralgias or myalgias Integumentary Denies rash Neurologic Neurologic: Reports weakness; Denies headache(s) or paresthesias Hematologic/Lymphatic Hematologic/Lymphatic: Denies easy bleeding or easy bruising EXAM Physical Exam Const Vital Signs: 03/28/25 14:21 03/28/25 14:33 03/28/25 15:30 Temperature 98.6 F Temperature Source Oral Pulse Rate 71 52 L Respiratory Rate 16 25 H Respiratory Effort Short of Breath Labored Respiratory Depth Deep Respiratory Pattern Tachypnea Blood Pressure 151/86 H 120/70 Blood Pressure Mean 107 84 Pulse Ox 98 94 Oxygen Delivery Method Room Air Nasal Cannula Oxygen Flow Rate (L/min) 2 03/28/25 16:00 03/28/25 17:00 03/28/25 18:00 Temperature Temperature Source Pulse Rate 52 L 57 L 60 Respiratory Rate 16 19 H 17 Respiratory Effort Respiratory Depth Respiratory Pattern Blood Pressure 139/72 H 143/78 H 146/86 H Blood Pressure Mean 94 99 106 Pulse Ox 100 96 95 Oxygen Delivery Method Room Air Oxygen Flow Rate (L/min) 03/28/25 19:00 03/28/25 20:00 03/28/25 20:13 Temperature 98 F Temperature Source Pulse Rate 54 L 63 63 Respiratory Rate 16 18 18 Respiratory Effort Respiratory Depth Respiratory Pattern Blood Pressure 124/80 H 126/81 H 126/81 H Blood Pressure Mean 94 96 96 Pulse Ox 100 98 98 Oxygen Delivery Method Oxygen Flow Rate (L/min) Positive well nourished and well developed Constitutional Narrative: BMI is 44.8. Patient is tachypneic. There is no use of accessory muscles or retractions. General Appearance ED: well developed HEENT Reports moist mucous membranes HEENT Narrative: Head is atraumatic normocephalic. Ears are normal Eyes PERRL and EOMs intact bilaterally General Eye ED: Negative for pale conjunctiva or scleral icterus Neck no lymphadenopathy, supple, no meningeal signs and no JVD Resp normal respiratory effort and No clear to auscultation bilaterally Auscultation: rales bilateral base Cardio regular rate, regular rhythm, S1 normal heart sound, S2 normal heart sound and no murmurs GI non-tender, non-distended and no masses Palpation: soft Back/Spine no CVA tenderness Extremity normal to inspection Neuro oriented x3 and CN's II-XII intact bilaterally MDM MDM Lab Data Labs: Laboratory Results - last 24 hr 03/28/25 03/28/25 03/28/25 14:32 16:27 18:46 WBC 9.1 RBC 4.31 L Hgb 13.1 Hct 39.5 L MCV 91.6 MCH 30.4 MCHC 33.2 RDW Std Deviation 42.5 RDW Coeff of Yudith 12.9 Plt Count 378 MPV 10.8 Immature Gran % (Auto) 0.200 Neut % (Auto) 70.9 H Lymph % (Auto) 14.2 L [place] % (Auto) 10.0 Eos % (Auto) 4.0 Baso % (Auto) 0.7 Absolute Neuts (auto) 6.5 Absolute Lymphs (auto) 1.30 Nucleated RBC % 0 Sodium 142 Potassium 4.2 Chloride 105 Carbon Dioxide 28.1 Anion Gap 9 BUN 18 Creatinine 1.00 Estim Creat Clear Calc 131.83 Est GFR (MDRD) Non-Af 87 BUN/Creatinine Ratio 17.5 Glucose 91 Calcium 8.8 Troponin T High Sens 16 D Troponin T Hi Sens 2 Hr 21 Troponin T Hi Sens 4Hr 17 NT pro BNP II 2392 H Troponins are trending downward. BNP was 2392. CBC is unremarkable. Electrolyte panel is unremarkable. Radiography Chest X-Ray - ED: Read by ED Physician (Sima Lombardi reviewed interpreted by me. Patient has mild cardiomegaly and evidence of pulmonary edema. Osseous structures are unremarkable.) Diagnostic Testing: Clinical Impression(s) from Imaging Studies Chest X-Ray 03/28/25 14:43 IMPRESSION: Cardiomegaly with pulmonary congestion and edema. Superimposed pneumonia cannot be excluded. Reading Location: [facility] EKG Initial EKG: Attestation: I personally reviewed and interpreted this EKG as follows: Interpretation: Sinus Bradycardia (Rate is 57. TX interval is 152 ms Rickers duration 102 ms. QT duration 470 ms. [place] is normal. There is evidence of LVH. There is no acute ischemic changes noted.) Management Discussion w/another healthcare provider: Hospitalist (Spoke with Dr. Mikey Rainey. Full admit PCU.) Additional Tests and Interventions Additional Tests or Interventions: Patient had a transesophageal echo on March 15. Normal left ventricle. The left ventricular systolic function is normal. Estimated ejection fraction is 65%. Bubble contrast study negative for PFO/ASD. The left atrium was noted to be slightly enlarged. There is moderate concentric left ventricular hypertrophy. Reviewed Dr. Blair's progress note from March 15. Assessment was atrial fibrillation with rapid ventricular spots. Patient was on Eliquis and was discontinued. He was then placed on a heparin drip and treated with Cardizem and beta-trixie. Echo revealed LVH. Recommendation was to restart Eliquis 5 milligrams twice daily. He did receive a dose of amiodarone. He is presently on beta-trixie and amiodarone. He had a JUDY guided cardioversion. Discharge Plan Dx/Rx/DC Orders Clinical Impression: New onset of congestive heart failure, Anticoagulant long-term use, On amiodarone therapy, Hypertension, Hypothyroidism, Hyperlipidemia Disposition Disposition: Acute Care Hospital [facility]
[2025-03-28 17:31] LABS: Troponin T High Sens 2 HR 21 ng/L (<=22)
[2025-03-28 19:46] LABS: Troponin T High Sens 4 HR 17 ng/L (<=22)
--- NOTE | 2025-03-28 20:05 | PCM.HP.STD ---
[facility] - General General Date of Admission: 03/28/25 Date of Service: 03/28/25 Chief Complaint: SOB. HPI Narrative PAULINA RAMIREZ, is a 59 M with a past medical history of essential hypertension; on lisinopril and hydrochlorothiazide, hypothyroidism; on levothyroxine, morbid (class III) obesity; with BMI of 44.8 this admission, chronic atrial fibrillation; on amiodarone BID plus apixaban BID, recent transesophageal echocardiogram with LVEF ~65% moderately enlarged left atrium with moderate concentric LVH (March 15, 2025), history of umbilical hernia; s/p repair, history of renal calculi, history of asthma; on Pulmicort BID plus levalbuterol q. 4 hours prn and OA who presents to [facility] ER complaining of shortness of breath. Mr. Ramirez reports his symptoms began approximately 1 day prior to admission with a gradual-onset of dyspnea on exertion that progressed to shortness of breath at rest. He states his dyspnea is made worse with exertion and lying flat in spite of taking furosemide prescribed to his so he decided to come in for further evaluation and treatment. He denies associated fever, chills, cough, wheezing, rhinorrhea, palpitations, heart racing, chest pain, chest tightness, lower extremity edema, abdominal pain, nausea, vomiting, diarrhea, constipation, dysuria, hematuria, headache or rash. In the ER he was noted to have an elevated NT pro-BNP II of 2,392 pg/mL present on admission with a corresponding CXR that revealed cardiomegaly with pulmonary congestion and edema with superimposed pneumonia unable to be excluded consistent with New-onset AE CHF; with preserved LVEF complicated by clinical evidence of Acute Respiratory Insufficiency and he was then admitted to the PCU for ongoing care for a stay that is expected to be greater than 48 hours. [facility] Medical History Atrial fibrillation with rapid ventricular response HTN (hypertension) Kidney stones Home Medications ?Medication ?Instructions ?Recorded ?Last Taken ?Type atorvastatin 20 mg tablet 20 mg PO DAILY 03/12/25 Unknown History budesonide 90 mcg/actuation breath 2 inh inhalation Q12.TCU 03/12/25 Unknown History activated powder inhaler (Pulmicort Flexhaler) levalbuterol tartrate 45 1 inh inhalation Q4H PRN shortness 03/12/25 Unknown History mcg/actuation aerosol inhaler of breath or wheezing levothyroxine 75 mcg tablet 75 mcg PO DAILY 03/12/25 Unknown History lisinopril 10 mg tablet 10 mg PO DAILY 03/12/25 Unknown History cetirizine 10 mg tablet (All Day 10 mg PO DAILY PRN allergy symptoms 03/13/25 Unknown History Allergy (cetirizine)) amiodarone 200 mg tablet 200 mg PO BID 30 days #60 tabs 03/16/25 Unknown Rx apixaban 5 mg tablet (Eliquis) 5 mg PO BID 30 days #60 tabs 03/16/25 Unknown Rx metoprolol tartrate 100 mg tablet 100 mg PO BID 30 days #60 tabs 03/16/25 Unknown Rx Allergy/AdvReac Type Severity Reaction Status Date / Time No Known Allergies Allergy Verified 03/28/25 14:23 Family History Other Heart disease Surgical History H/O umbilical hernia repair Social History household members: spouse current occupational status: employed Smoking Status: Never smoker ROS ROS Narrative Review of Systems: Constitutional: Patient denies fever or chills. Eyes: Patient denies changes in vision or discharge from eyes. ENT: Patient denies runny nose, sore throat or ear pain. Resp: Patient admits to BELCHER that progressed to SOB at rest as per HPI. CV: Patient denies chest pain, palpitations or heart racing. GI: Patient denies abdominal pain, nausea, vomiting, diarrhea or constipation. : Patient denies dysuria or hematuria. MSK: Patient denies arthralgias or myalgias. Skin: Patient denies rash, abscess, wounds or jaundice. Psych: Patient denies symptoms uncontrolled depression or anxiety. Neuro: Patient denies headache, paresthesias or focal neurologic deficits. Allergy: Patient denies lip swelling, tongue swelling or urticaria. Hematology: Patient admits to easy bleeding and bruisability on apixaban. Endocrinology: Patient admits to polyuria after taking his 's furosemide but he denies polyphagia, polydipsia or heat/cold intolerance. 14 point ROS otherwise negative except for positives noted above in HPI. Vital Signs Vital Signs Vital Signs: 03/28/25 14:21 03/28/25 14:33 03/28/25 15:30 Temperature 98.6 F Temperature Source Oral Pulse Rate 71 52 L Respiratory Rate 16 25 H Respiratory Effort Short of Breath Labored Respiratory Depth Deep Respiratory Pattern Tachypnea Blood Pressure 151/86 H 120/70 Blood Pressure Mean 107 84 Pulse Ox 98 94 Oxygen Delivery Method Room Air Nasal Cannula Oxygen Flow Rate (L/min) 2 03/28/25 16:00 03/28/25 17:00 03/28/25 18:00 Temperature Temperature Source Pulse Rate 52 L 57 L 60 Respiratory Rate 16 19 H 17 Respiratory Effort Respiratory Depth Respiratory Pattern Blood Pressure 139/72 H 143/78 H 146/86 H Blood Pressure Mean 94 99 106 Pulse Ox 100 96 95 Oxygen Delivery Method Room Air Oxygen Flow Rate (L/min) 03/28/25 19:00 Temperature Temperature Source Pulse Rate 54 L Respiratory Rate 16 Respiratory Effort Respiratory Depth Respiratory Pattern Blood Pressure 124/80 H Blood Pressure Mean 94 Pulse Ox 100 Oxygen Delivery Method Oxygen Flow Rate (L/min) Weight Weight: 358 lb 9 oz Body Mass Index (BMI) 44.8 Physical Exam Const alert, oriented x3, average body habitus and healthy appearing Constitutional Narrative: Morbidly obese male who appears older than his stated age but nontoxic. General Appearance: cooperative HEENT normocephalic, head/scalp atraumatic, hearing grossly normal bilaterally and moist oral mucous membranes Eyes PERRL, EOMs intact bilaterally and conjunctivae normal Neck no lymphadenopathy and supple Resp Resp Narrative: Diminished breath sounds throughout with bibasilar rales. Auscultation: rales Cardio regular rate and regular rhythm GI normal to inspection, nondistended, normoactive bowel sounds, soft to palpation, non-tender and non-distended GI Narrative: [place] obese. Extremity normal to inspection, full ROM and no clubbing, cyanosis or edema Skin Skin Narrative: Patient is evidence of rash, abscess, wounds or jaundice. Neuro oriented x3, CN's II-XII intact bilaterally, moves all extremities and no focal motor deficits Sensorium / Orientation: awake, alert, oriented to person, oriented to place and oriented to time Speech: speech normal Psych affect normal Results Medical Records Data Attestation: I reviewed the patient's medical records Lab / Micro Data Attestation: I reviewed the patient's lab results. 03/29/25 05:06 03/29/25 05:06 Labs: Laboratory Results - last 24 hr 03/28/25 14:32: WBC 9.1, RBC 4.31 L, Hgb 13.1, Hct 39.5 L, MCV 91.6, MCH 30.4, MCHC 33.2, RDW Std Deviation 42.5, RDW Coeff of Yudith 12.9, Plt Count 378, MPV 10.8, Immature Gran % (Auto) 0.200, Neut % (Auto) 70.9 H, Lymph % (Auto) 14.2 L, [place] % (Auto) 10.0, Eos % (Auto) 4.0, Baso % (Auto) 0.7, Absolute Neuts (auto) 6.5, Absolute Lymphs (auto) 1.30, Nucleated RBC % 0, Sodium 142, Potassium 4.2, Chloride 105, Carbon Dioxide 28.1, Anion Gap 9, BUN 18, Creatinine 1.00, Estim Creat Clear Calc 131.83, Est GFR (MDRD) Non-Af 87, BUN/Creatinine Ratio 17.5, Glucose 91, Calcium 8.8, Troponin T High Sens 16 D, NT pro BNP II 2392 H 03/28/25 16:27: Troponin T Hi Sens 2 Hr 21 03/28/25 18:46: Troponin T Hi Sens 4Hr 17 Imaging Radiology Impression Chest X-Ray 03/28/25 14:43 IMPRESSION: Cardiomegaly with pulmonary congestion and edema. Superimposed pneumonia cannot be excluded. Reading Location: [id number] Imaging Services [address] [place], [place] [address] Chest WITH Contrast MR#: [id number] Acct: [id number] Name: PAULINA RAMIREZ Rep #: [id number] : 1965 M 59 From: Shaun Vargas MD PCP: Dr. Bryan Rollins MD Status: ADM IN Study: Chest WITH Contrast Date of Exam: 03/29/25 Exam# [id number] Ordering Dr: Mikey Lockett DO PROCEDURE: CHEST WITH CONTRAST 03/29/2025 REASON FOR EXAM: WORSENING SOB. TECHNIQUE: Procedure Code: CTCHW Modality: CT Procedure: CHEST WITH CONTRAST Coronal and Sagittal reconstruction series were provided. CONTRAST: OMNIPAQUE 350 VOLUME: 100 mL One or more dose reduction techniques were used (e.g., Automated exposure control, adjustment of the mA and/or kV according to patient size, use of iterative reconstruction technique). RADIATION DOSE SUMMARY: CTDlvol: 20.15 mGy DLP: 788 mGycm COMPARISON: Chest radiograph on 03/28/2025. FINDINGS: Mildly prominent mediastinal lymph nodes are noted with the largest measuring 1.2 cm, possibly reactive. Mild bilateral pleural effusions. Passive atelectatic airspace disease of the lower lobes. Mild coronary artery calcifications. Moderate interstitial pulmonary congestion. Mild alveolar congestion. Ground-glass densities in the left upper lobe, developing alveolar edema versus developing pneumonia. Normal enhancement of the main pulmonary artery and right and left pulmonary arteries. Normal thoracic aorta and visualized great vessels. There is no demonstrated aortic dissection. Normal heart and pericardium. Normal visualized trachea and bronchi. Normal chest wall structures. Normal osseous structures. Normal visualized upper abdomen. CT/Chest WITH Contrast IMPRESSION: Coronary artery calcification (CAC) is is present Mildly prominent mediastinal lymph nodes are noted with the largest measuring 1.2 cm, possibly reactive. Mild bilateral pleural effusions. Passive atelectatic airspace disease of the lower lobes. Mild coronary artery calcifications. Moderate interstitial pulmonary congestion. Mild alveolar congestion. Ground-glass densities in the left upper lobe, developing alveolar edema versus developing pneumonia. Reading Location: [facility] CC: Dr. Mikey Lockett DO; Dr. Bryan Rollins MD ~ [place] Player: Signed Assessment & Plan Assessment/Plan (1) New onset of congestive heart failure: (2) Acute respiratory insufficiency: (3) Morbid obesity with BMI of 40.0-44.9, adult: (4) History of atrial fibrillation: (5) Anticoagulant long-term use: (6) On amiodarone therapy: PLAN: Plan 1. New-onset AE of CHF; with preserved LVEF with elevated NT pro-BNP II of 2,392 pg/mL present on admission with a corresponding CXR that revealed cardiomegaly with pulmonary congestion and edema with superimposed pneumonia unable to be excluded - Admit to PCU. Continue IV furosemide begun in the ER BID plus give supplemental KCl and magnesium. Give acetaminophen prn pain or fever. Recheck CXR in AM to follow response to treatment. Check viral respiratory panel. 2. Acute Respiratory Insufficiency due to #1 - Wean supplemental oxygen as tolerated. 3. Morbid (class III) obesity; with BMI of 44.8 this admission complicating #1 & #2 - Weight loss will be recommended. Check TSH. This complicates his case and may hamper recovery. 4. Atrial fibrillation; on amiodarone BID plus apixaban BID adding to the medical complexity of #1 - #3 - Continue current therapy as before with patient in NSR at this time. 5. History of asthma; on Pulmicort BID plus levalbuterol q. 4 hours prn - Noted with no evidence of acute flare at this time. Maintain present treatment. 6. Essential hypertension; on lisinopril and hydrochlorothiazide - Resume lisinopril as previous but hold HCTZ in light of furosemide for #1. 7. Hypothyroidism; on levothyroxine - Continue levothyroxine and check TSH. 8. History of umbilical hernia; s/p repair - Noted. 9. History of renal calculi - Noted with no evidence of recurrence at this time. 10. OA - Give acetaminophen prn as outlined in #1. 11. DVT prophylaxis - Patient already on apixaban for #4 which will be continued. Total time: Approximately (but not less than) 75 minutes. Charges/Coding Visit Charges Inpatient E&M: 75642 Init Hosp L3
[2025-03-28 21:15] LABS: Magnesium 2.3 mg/dL (1.5-2.2)
[2025-03-28 22:07] LABS: Mucous, Urine 0 SEEN /hpf (<or=2+); Red Blood Cells-Urine 0 SEEN /hpf (0-5); Squamous Epithelial Cells - UA 0 SEEN /hpf (0-5)
[2025-03-28 22:11] LABS: Color, Urine Yellow (Yellow); Glucose, Dipstick Normal (Normal); Ketone-Dipstick Negative (Negative); Leukocyte Esterase-Dipstick Negative /ul (Negative); Nitrite-Dipstick Negative (Negative); Occult Blood-Urine Negative /ul (Negative); Protein-Dipstick Negative (Negative); Specific Gravity, Urine 1.010 (1.002-1.030); Urine Bilirubin Dipstick Negative (Negative)
[2025-03-28] MEDS: MELATONIN 3 MG TABLET PO (22:28)
[2025-03-28] MEDS: APIXABAN 5 MG TABLET PO (22:28)
[2025-03-28] MEDS: Magnesium Chloride 64 MG Delay Rel.Tablet 128 MG PO (22:30)
[2025-03-28] MEDS: 0.9% Saline Lock 10 ML Syringe IV (22:36)
[2025-03-29] VITALS (11 sets, daily range): BP systolic 103–140; BP diastolic 54–79; PULSE 49–60; RESP 15–18; TEMP 36.4–36.8; O2SAT 93–98; BMI 41.9; BMI 42.0
[2025-03-29 00:33] LABS: Free T3 2.5 pg/mL (2.18-3.98)
--- NOTE | 2025-03-29 03:00 | CT_ITS ---
PROCEDURE: CHEST WITH CONTRAST 03/29/2025 REASON FOR EXAM: WORSENING SOB. TECHNIQUE: Procedure Code: CTCHW Modality: CT Procedure: CHEST WITH CONTRAST Coronal and Sagittal reconstruction series were provided. CONTRAST: OMNIPAQUE 350 VOLUME: 100 mL One or more dose reduction techniques were used (e.g., Automated exposure control, adjustment of the mA and/or kV according to patient size, use of iterative reconstruction technique). RADIATION DOSE SUMMARY: CTDlvol: 20.15 mGy DLP: 788 mGycm COMPARISON: Chest radiograph on 03/28/2025. FINDINGS: Mildly prominent mediastinal lymph nodes are noted with the largest measuring 1.2 cm, possibly reactive. Mild bilateral pleural effusions. Passive atelectatic airspace disease of the lower lobes. Mild coronary artery calcifications. Moderate interstitial pulmonary congestion. Mild alveolar congestion. Ground-glass densities in the left upper lobe, developing alveolar edema versus developing pneumonia. Normal enhancement of the main pulmonary artery and right and left pulmonary arteries. Normal thoracic aorta and visualized great vessels. There is no demonstrated aortic dissection. Normal heart and pericardium. Normal visualized trachea and bronchi. Normal chest wall structures. Normal osseous structures. Normal visualized upper abdomen. CT/Chest WITH Contrast IMPRESSION: Coronary artery calcification (CAC) is is present Mildly prominent mediastinal lymph nodes are noted with the largest measuring 1 .2 cm, possibly reactive. Mild bilateral pleural effusions. Passive atelectatic airspace disease of the lower lobes. Mild coronary artery calcifications. Moderate interstitial pulmonary congestion. Mild alveolar congestion. Ground-glass densities in the left upper lobe, developing alveolar edema versus developing pneumonia. Reading Location: [facility]
--- NOTE | 2025-03-29 03:04 | NURSING ---
Patient called out complaining of increased difficulty taking a deep breath. Feels like someone is sitting on my chest Vitals signs taken. Patient placed on 2 L NC O2 for comfort.Dr Linton notified. Order for Chest CT obtained. Patient transported to CT scan via bed. Patient returned to room after scan. Patient reports feeling a little better with the oxygen on.
--- NOTE | 2025-03-29 05:15 | RAD_ITS ---
PROCEDURE: CHEST 1 VIEW (PORTABLE) 03/29/2025 REASON FOR EXAM: AE CHF TECHNIQUE: Frontal view of the chest. COMPARISON: March 28, 2025 FINDINGS: There is cardiomegaly with central vascular congestion and increased interstitial markings consistent with CHF, similar to the prior. There is no pneumothorax or effusion. There is no acute bony abnormality. Aortic calcifications are noted. RAD/Chest 1 View (Portable) IMPRESSION: There is cardiomegaly with central vascular congestion and increased interstiti al markings consistent with CHF, similar to the prior. Reading Location: [facility]
[2025-03-29 05:52] LABS: Hematocrit 38.0 % (40-54); Hemoglobin 12.6 g/dL (13.0-16.5); Immature Granulocytes Count 0.010 X10^3/uL (0.0-0.0); Mean Corp Hgb Conc 33.2 g/dL (32-36); Mean Corpuscular Volume 91.1 fL (80-94); Mean Platelet Vol. 10.8 fl (6.2-12.0); NRBC Flagged by Analyzer 0 % (0-5); Platelet Count 340 K/mm3 (150-450); RBC Distribution Width CV 13.2 % (11.6-14.6); RBC Distribution Width SD 43.6 fl (35.1-43.9); Red Blood Count 4.17 M/mm3 (4.6-6.2); White Blood Count 7.8 K/mm3 (4.4-11.0)
[2025-03-29 06:16] LABS: AST(SGOT) 27 U/L (<=37); Alanine Aminotransfer ALT/SGPT 49 U/L (<=46); Albumin, Serum 3.5 g/dL (3.5-5.0); Alkaline Phosphatase 61 U/L (40-129); Anion Gap 9 (5-15); BUN 15 mg/dL (4-19); BUN/Creat Ratio 18.0 RATIO (10-20); Calcium,Total 8.8 mg/dL (7.6-11.0); Carbon Dioxide 28.0 mmol/L (21.0-32.0); Chloride 104 mmol/L (98-108); Estimated Creatinine Clearance 151.82 ml/min (50-250); Globulin 2.9 g/dL (2.2-4.2); Glucose 103 mg/dL (70-99); Potassium 4.1 mmol/L (3.3-5.1); Pro- Brain NATRIURETIC PEPTIDE 2284 pg/mL (<=900)
[2025-03-29] MEDS: Albuterol 2.5 MG/3 ML VIAL.NEB. INHALATION ×3 (07:45→20:34)
[2025-03-29] MEDS: Budesonide Respules 0.5 MG/2 ML AMPUL.NEB. INHALATION ×2 (07:45→20:34)
[2025-03-29] MEDS: Potassium Chloride Oral Tablet 20 MEQ PO ×2 (08:39→16:54)
[2025-03-29] MEDS: APIXABAN 5 MG TABLET PO ×2 (08:39→22:00)
[2025-03-29] MEDS: Magnesium Chloride 64 MG Delay Rel.Tablet 128 MG PO ×2 (08:40→22:00)
[2025-03-29] MEDS: 0.9% Saline Lock 10 ML Syringe IV ×2 (08:40→16:54)
--- NOTE | 2025-03-29 11:42 | PN.HOSP_ITS ---
Subjective Subjective Maintaining his oxygen saturations on room air, breathing a bit better. Objective Data Objective Data Vital Signs: Vital Signs Temp Pulse Resp BP Pulse Ox O2 Del Method O2 Flow Rate 98.3 F 49 L 15 103/58 L 96 Room Air 2 03/29/25 08:37 03/29/25 11:05 03/29/25 11:05 03/29/25 11:05 03/29/25 11:05 03/29/25 11:05 03/29/25 08:37 Oxygen Flow Rate (L/min) 2 Oxygen Delivery Method Room Air Weight: 337 lb 11.971 oz Body Mass Index (BMI) 42.0 Intake & Output: Intake and Output for Last 24 Hours 03/28/25 03/29/25 03/30/25 03:59 03:59 03:59 Intake Total 400 / 400 675 / 675 Output Total 500 / 500 2250 / 2250 Balance -100 / -100 -1575 / -1575 Lab / Micro Data 03/29/25 05:06 03/29/25 05:06 Labs: Laboratory Results - last 24 hr 03/28/25 14:32: WBC 9.1, RBC 4.31 L, Hgb 13.1, Hct 39.5 L, MCV 91.6, MCH 30.4, MCHC 33.2, RDW Std Deviation 42.5, RDW Coeff of Yudith 12.9, Plt Count 378, MPV 10.8, Immature Gran % (Auto) 0.200, Neut % (Auto) 70.9 H, Lymph % (Auto) 14.2 L, [place] % (Auto) 10.0, Eos % (Auto) 4.0, Baso % (Auto) 0.7, Absolute Neuts (auto) 6.5, Absolute Lymphs (auto) 1.30, Nucleated RBC % 0, Sodium 142, Potassium 4.2, Chloride 105, Carbon Dioxide 28.1, Anion Gap 9, BUN 18, Creatinine 1.00, Estim Creat Clear Calc 131.83, Est GFR (MDRD) Non-Af 87, BUN/Creatinine Ratio 17.5, Glucose 91, Calcium 8.8, Troponin T High Sens 16 D, NT pro BNP II 2392 H 03/28/25 16:27: Troponin T Hi Sens 2 Hr 21 03/28/25 18:46: Magnesium 2.3 H, Troponin T Hi Sens 4Hr 17, TSH 5.340 H, Free T4 1.40, Free T3 pg/dL 2.5 03/28/25 21:12: Urine Color Yellow, Urine Clarity Clear, Urine pH 6.5, Ur Specific [place] 1.010, Urine Protein Negative, Urine Glucose (UA) Normal, Urine Ketones Negative, Urine Occult Blood Negative, Urine Nitrite Negative, Urine Bilirubin Negative, Urine Urobilinogen Normal, Ur Leukocyte Esterase Negative, Urine RBC 0 SEEN, Urine WBC 0 SEEN, Ur Squamous Epith Cells 0 SEEN, Urine Bacteria 0 SEEN, Urine Mucus 0 SEEN 03/29/25 05:06: WBC 7.8, RBC 4.17 L, Hgb 12.6 L, Hct 38.0 L, MCV 91.1, MCH 30.2, MCHC 33.2, RDW Std Deviation 43.6, RDW Coeff of Yudith 13.2, Plt Count 340, MPV 10.8, Immature Gran % (Auto) 0.100, Neut % (Auto) 68.0, Lymph % (Auto) 13.9 L, M [place] % (Auto) 12.3 H, Eos % (Auto) 5.2 H, Baso % (Auto) 0.5, Absolute Neuts (auto) 5.3, Absolute Lymphs (auto) 1.09, Nucleated RBC % 0, Sodium 141, Potassium 4.1, Chloride 104, Carbon Dioxide 28.0, Anion Gap 9, BUN 15, Creatinine 0.84, Estim Creat Clear Calc 151.82, Est GFR (MDRD) Non-Af 101, BUN/Creatinine Ratio 18.0, Glucose 103 H, Calcium 8.8, Phosphorus 4.6 H, Total Bilirubin 0.49, AST 27, ALT 49 H, Alkaline Phosphatase 61, NT pro BNP II 2284 H, Total Protein 6.4, Albumin 3.5, Globulin 2.9, Albumin/Globulin Ratio 1.2 Radiography Diagnostic Testing: Radiology Impression Chest X-Ray 03/28/25 14:43 IMPRESSION: Cardiomegaly with pulmonary congestion and edema. Superimposed pneumonia cannot be excluded. Reading Location: [facility] Chest CT 03/29/25 03:00 IMPRESSION: Coronary artery calcification (CAC) is is present Mildly prominent mediastinal lymph nodes are noted with the largest measuring 1.2 cm, possibly reactive. Mild bilateral pleural effusions. Passive atelectatic airspace disease of the lower lobes. Mild coronary artery calcifications. Moderate interstitial pulmonary congestion. Mild alveolar congestion. Ground-glass densities in the left upper lobe, developing alveolar edema versus developing pneumonia. Reading Location[facility] Chest X-Ray 03/29/25 05:15 IMPRESSION: There is cardiomegaly with central vascular congestion and increased interstitial markings consistent with CHF, similar to the prior. Reading Location[facility] Physical Exam Narrative General: Alert, Oriented x3, Cooperative, No apparent distress HEENT: Atraumatic, PERRLA, EOMI, Normocephalic Oral: Moist Mucosa Neck: Supple, No JVD Lungs: Diminished, Normal air movement, No rhonchi, No wheeze, No rales Cardiovascular: Regular rate, Regular Rhythm, Normal S1, Normal S2, No murmurs Abdomen: Soft, Non Tender, Non-Distended, No Hepato-splenomegaly Extremities: No edema, Capillary Refill Less than 3 Seconds Skin: No rashes, No breakdown Musculoskeletal: No Tenderness to Palpation of Joints or Extremities Neurological: No focal neurological deficits, moves all extremities, sensation intact Psych/Mental Status: Normal Affect, Appropriate Assessment & Plan Assessment/Plan (1) New onset of congestive heart failure: (2) Acute respiratory insufficiency: PLAN: Plan 1. New onset acute diastolic CHF/A-fib/essential HTN/HLD ? Blood pressures are on the low side, will decrease his lisinopril to 5 mg p.o. daily ? Continue with his home metoprolol ? Continue anticoagulation ? Echo with EF of 70% and severe concentric left ventricular hypertrophy on his recent admission ?Continue with amiodarone ? If his pressures remain soft we will transition his lisinopril to Lasix ? Given symptomatology consistent with diastolic heart failure will place on Jardiance 2. Hypothyroidism ? Stable ? Continue Synthroid 3. Asthma ? Not in exacerbation ? Can continue with his home inhalers DVT: Eliquis Charges/Coding Visit Charges Inpatient E&M: 34704 Subs Hosp L2
--- NOTE | 2025-03-29 14:28 | CHAPLAIN ---
Type of Pastoral Visit _x__ Initial Visit ___ Follow-up Visit ___ On-call Visit ___ General Patient Visit ___ Spiritual Assessment ___ Family Conference ___ Bereavement ___ Rapid Response ___ Code Blue ___ Other (describe below) Pastoral Care Referral From _x__ Patient ___ Family ___ Nurse ___ Physician ___ Career Development Consultant ___ Palletizer Operator ___ Other (describe below) Sacrament/Intervention _x__ Active listening ___ Anointing ___ Oriental Orthodox ___ Bereavement ___ Communion _x__ Kelsey exploration ___ ___ Life review _x__ Prayer ___ Reconciliation ___ Sacrament of Sick _x__ Supportive presence ___ Wedding ___ Other (describe below) Pastoral Comments patient is welcoming and eager to talk about his situation and his kelsey; pt identifies as a Amish who knows where I am going and not afraid but also admits that this is scary and I may need to make some changes, including in my work (which is 6-7 days per week); pt is asked about how he is coping and affirmed in his looking at perspective and the bigger picture of things; pt has family and pentecostal support; pt welcomes prayer
[2025-03-30] VITALS (7 sets, daily range): BP systolic 93–130; BP diastolic 68–75; PULSE 58–64; RESP 16–18; TEMP 36.6; O2SAT 91–98; BMI 41.6
[2025-03-30 05:59] LABS: Hematocrit 41.3 % (40-54); Hemoglobin 13.7 g/dL (13.0-16.5); Immature Granulocytes Count 0.030 X10^3/uL (0.0-0.0); Mean Corp Hgb Conc 33.2 g/dL (32-36); Mean Corpuscular Volume 91.6 fL (80-94); Mean Platelet Vol. 10.5 fl (6.2-12.0); NRBC Flagged by Analyzer 0 % (0-5); Platelet Count 348 K/mm3 (150-450); RBC Distribution Width CV 13.3 % (11.6-14.6); RBC Distribution Width SD 43.8 fl (35.1-43.9); Red Blood Count 4.51 M/mm3 (4.6-6.2); White Blood Count 8.1 K/mm3 (4.4-11.0)
[2025-03-30 06:15] LABS: Anion Gap 9 (5-15); BUN 14 mg/dL (4-19); BUN/Creat Ratio 15.1 RATIO (10-20); Calcium,Total 8.8 mg/dL (7.6-11.0); Carbon Dioxide 29.2 mmol/L (21.0-32.0); Chloride 103 mmol/L (98-108); Estimated Creatinine Clearance 140.74 ml/min (50-250); Glucose 93 mg/dL (70-99); Potassium 4.1 mmol/L (3.3-5.1)
[2025-03-30] MEDS: Albuterol 2.5 MG/3 ML VIAL.NEB. INHALATION ×2 (06:42→13:10)
[2025-03-30] MEDS: Budesonide Respules 0.5 MG/2 ML AMPUL.NEB. INHALATION (06:42)
[2025-03-30] MEDS: Magnesium Chloride 64 MG Delay Rel.Tablet 128 MG PO (10:50)
[2025-03-30] MEDS: APIXABAN 5 MG TABLET PO (10:50)
[2025-03-30] MEDS: Potassium Chloride Oral Tablet 20 MEQ PO (10:53)
--- NOTE | 2025-03-30 12:48 | DCINST_ITS ---
Discharge Instructions DC O2, CPAP, BIPAP needs Home O2 Discharge instructions: No Dressing / Incision Discharge Activity: Return to Normal Activity Dressing / Incision Call your doctor if you observe: Fever of 101 or Higher, Shortness of breath, Dizziness, Fainting spells, Swelling in the ankles, Chest pain and Increased palpitations (irregular heartbeat) Follow Up Care Test Results: Test results from this visit will be discussed in further detail at your follow- up appointment, if applicable. Discharge Plan Admission Admit Date/Time: 03/28/25 20:32 Attending Provider: Joselito Chan Primary Care Provider: Bryan Rollins Consulting Providers: Mikey Lockett Instructions Patient Instructions: ED CHF Left Side Additional Instructions / Restrictions: Follow-up with your life claims examiner as previously scheduled. I decreased her lisinopril to 5 mg because of your blood pressure issues here in the hospital especially since we are starting you on Lasix which is a diuretic and can affect her blood pressure. Recommend outpatient monitoring by your PCP for your renal function as well as blood pressure changes. Discharge Orders/Prescriptions Prescriptions: New furosemide 40 mg Tablet 40 mg PO DAILY 30 Days Qty: 30 0RF Jardiance 10 mg Tablet 10 mg PO DAILY 30 Days Qty: 30 0RF Continued atorvastatin 20 mg tablet 20 mg PO DAILY levothyroxine 75 mcg tablet 75 mcg PO DAILY levalbuterol tartrate 45 mcg/actuation HFA aerosol inhaler 1 inh inhalation Q4H PRN (Reason: shortness of breath or wheezing) Pulmicort Flexhaler 90 mcg/actuation aerosol powdr breath activated 2 inh INHALATION Q12.TCU cetirizine [All Day Allergy (cetirizine)] 10 mg tablet 10 mg PO DAILY PRN (Reason: allergy symptoms) metoprolol tartrate 100 mg Tablet 100 mg PO BID 30 Days Qty: 60 0RF amiodarone 200 mg Tablet 200 mg PO BID 30 Days Qty: 60 0RF Rx Instructions: Take 1 tablet twice daily for 7 days then take 1 tablet daily Eliquis 5 mg Tablet 5 mg PO BID 30 Days Qty: 60 0RF Changed lisinopril 10 mg tablet 5 mg PO DAILY Qty: 1 0RF Referrals / Follow Up: Bryan Rollins MD [Primary Care Provider, Medical] - Within 1 Week Disposition Disposition (needs filled in before D/C Order can be placed): Home, Self Care
--- NOTE | 2025-03-30 13:28 | CASEMGMT ---
Pt has an order for DC placed. Per the veneer jointer offbearer, pt does not qualify for home oxygen. Noted that the pt has a new Rx for Jardiance. TC to pt's preferred pharmacy who states that the pt has a 0$ co-pay. RN CM to the pt's room at this time and updated. Pt thanks this bond underwriter and denies further questions or concerns at this time and is ready for DC.
--- NOTE | 2025-03-30 14:42 | PCM.DC.SUM ---
Providers Date of Admission: 03/28/25 Primary Care Physician: Dr. Bryan Rollins MD Reason For Visit: AE CHF WITH RESP INSUFFICIENCY Diagnosis Discharge Diagnosis (1) New onset of congestive heart failure: Status: Acute Code(s): I50.9 - Heart failure, unspecified (2) Acute respiratory insufficiency: Status: Acute Code(s): R06.89 - Other abnormalities of breathing Medications at Discharge Home Medications atorvastatin 20 mg tablet 20 mg PO DAILY cholesterol 03/12/25 budesonide 90 mcg/actuation breath activated powder inhaler (Pulmicort Flexhaler) 2 inh inhalation Q12.TCU breathing 03/12/25 levalbuterol tartrate 45 mcg/actuation aerosol inhaler 1 inh inhalation Q4H PRN shortness of breath or wheezing 03/12/25 levothyroxine 75 mcg tablet 75 mcg PO DAILY thyroid 03/12/25 cetirizine 10 mg tablet (All Day Allergy (cetirizine)) 10 mg PO DAILY PRN allergy symptoms 03/13/25 amiodarone 200 mg tablet 200 mg PO BID heart rate 30 days #60 tabs 03/16/25 apixaban 5 mg tablet (Eliquis) 5 mg PO BID blood thinner 30 days #60 tabs 03/16/25 metoprolol tartrate 100 mg tablet 100 mg PO BID blood pressure 30 days #60 tabs 03/16/25 empagliflozin 10 mg tablet (Jardiance) 10 mg PO DAILY 30 days #30 tabs 03/30/25 furosemide 40 mg tablet 40 mg PO DAILY 30 days #30 tabs 03/30/25 lisinopril 10 mg tablet 5 mg (1/2 x 10 mg) PO DAILY #1 TAB 03/30/25 Hospital Course Operations None Procedures None Summary of Care Provided Minutes Spent on Discharge: 34 Hospital Course: Per HPI: PAULINA RAMIREZ, is a 59 M with a past medical history of essential hypertension; on lisinopril and hydrochlorothiazide, hypothyroidism; on levothyroxine, morbid (class III) obesity; with BMI of 44.8 this admission, chronic atrial fibrillation; on amiodarone BID plus apixaban BID, recent transesophageal echocardiogram with LVEF ~65% moderately enlarged left atrium with moderate concentric LVH (March 15, 2025), history of umbilical hernia; s/p repair, history of renal calculi, history of asthma; on Pulmicort BID plus levalbuterol q. 4 hours prn and OA who presents to [facility] ER complaining of shortness of breath. Mr. Ramirez reports his symptoms began approximately 1 day prior to admission with a gradual-onset of dyspnea on exertion that progressed to shortness of breath at rest. He states his dyspnea is made worse with exertion and lying flat in spite of taking furosemide prescribed to his so he decided to come in for further evaluation and treatment. He denies associated fever, chills, cough, wheezing, rhinorrhea, palpitations, heart racing, chest pain, chest tightness, lower extremity edema, abdominal pain, nausea, vomiting, diarrhea, constipation, dysuria, hematuria, headache or rash. In the ER he was noted to have an elevated NT pro-BNP II of 2,392 pg/mL present on admission with a corresponding CXR that revealed cardiomegaly with pulmonary congestion and edema with superimposed pneumonia unable to be excluded consistent with New-onset AE CHF; with preserved LVEF complicated by clinical evidence of Acute Respiratory Insufficiency and he was then admitted to the PCU for ongoing care for a stay that is expected to be greater than 48 hours. Hospital Course: 1. New onset diastolic CHF/A-fib/essential HTN/HLD?59-year-old male was recently admitted to the hospital with new onset A-fib and was discharged on lisinopril 10 mg p.o. daily as well as metoprolol at 100 mg p.o. twice daily. He presents to the hospital with signs and symptoms consistent with heart failure. On his previous admission he did have an echocardiogram with an EF of 70% and severe concentric left ventricular hypertrophy. Given the new symptoms he was started on Lasix but had some hypotension so his lisinopril was decreased to 5 mg p.o. daily. He will continue with his Lipitor as well as his Eliquis and amiodarone but given the new diastolic dysfunction he was also started on Jardiance 10 mg p.o. daily. I discussed with him the plan for discharge today and he expressed understanding of the risks and benefits of going home and would like to go home today. He did have an ambulatory pulse ox prior to discharge which was negative, he did not need oxygen on ambulation or with rest. 2. Hypothyroidism, asthma or chronic medical conditions which complicate his care. His home medications were continued where appropriate. Physical Exam Narrative General: Alert, Oriented x3, Cooperative, No apparent distress HEENT: Atraumatic, PERRLA, EOMI, Normocephalic Oral: Moist Mucosa Neck: Supple, No JVD Lungs: Diminished, Normal air movement, No rhonchi, No wheeze, No rales Cardiovascular: Regular rate, Regular Rhythm, Normal S1, Normal S2, No murmurs Abdomen: Soft, Non Tender, Non-Distended, No Hepato-splenomegaly Extremities: No edema, Capillary Refill Less than 3 Seconds Skin: No rashes, No breakdown Musculoskeletal: No Tenderness to Palpation of Joints or Extremities Neurological: No focal neurological deficits, moves all extremities, sensation intact Psych/Mental Status: Normal Affect, Appropriate Weight / BMI Weight Weight: 333 lb 8.95 oz Body Mass Index (BMI) 41.6 ABG / Lab / Microbiology Data 03/30/25 05:07 03/30/25 05:07 Laboratory: Laboratory Results - last 24 hr 03/30/25 05:07: WBC 8.1, RBC 4.51 L, Hgb 13.7, Hct 41.3, MCV 91.6, MCH 30.4, MCHC 33.2, RDW Std Deviation 43.8, RDW Coeff of Yudith 13.3, Plt Count 348, MPV 10.5, Immature Gran % (Auto) 0.400, Neut % (Auto) 65.6, Lymph % (Auto) 16.7 L, [place] % (Auto) 11.9 H, Eos % (Auto) 4.8, Baso % (Auto) 0.6, Absolute Neuts (auto) 5.3, Absolute Lymphs (auto) 1.35, Nucleated RBC % 0, Sodium 142, Potassium 4.1, Chloride 103, Carbon Dioxide 29.2, Anion Gap 9, BUN 14, Creatinine 0.90, Estim Creat Clear Calc 140.74, Est GFR (MDRD) Non-Af 99, BUN/Creatinine Ratio 15.1, Glucose 93, Calcium 8.8, Phosphorus 4.5 Microbiology: Microbiology 03/29/25 08:11 Mucosa - Nose Respiratory Panel (PCR) - Final D/C Instructions Call your doctor if you observe: Fever of 101 or Higher, Shortness of breath, Dizziness, Fainting spells, Swelling in the ankles, Chest pain and Increased palpitations (irregular heartbeat) DC O2, CPAP, BIPAP Needs Home O2 Discharge instructions: No Meaningful Use Info Meaningful Use Meaningful Use Diagnoses (Choose all that apply): None applicable Discharge Plan Admission Admit Date/Time: 03/28/25 20:32 Attending Provider: Joselito Chan Primary Care Provider: Bryan Rollins Consulting Providers: Mikey Lockett Instructions Patient Instructions: ED CHF Left Side Additional Instructions / Restrictions: Follow-up with your behavioral health care manager as previously scheduled. I decreased her lisinopril to 5 mg because of your blood pressure issues here in the hospital especially since we are starting you on Lasix which is a diuretic and can affect her blood pressure. Recommend outpatient monitoring by your PCP for your renal function as well as blood pressure changes. Discharge Orders/Prescriptions Prescriptions: New furosemide 40 mg Tablet 40 mg PO DAILY 30 Days Qty: 30 0RF Jardiance 10 mg Tablet 10 mg PO DAILY 30 Days Qty: 30 0RF Continued atorvastatin 20 mg tablet 20 mg PO DAILY levothyroxine 75 mcg tablet 75 mcg PO DAILY levalbuterol tartrate 45 mcg/actuation HFA aerosol inhaler 1 inh inhalation Q4H PRN (Reason: shortness of breath or wheezing) Pulmicort Flexhaler 90 mcg/actuation aerosol powdr breath activated 2 inh INHALATION Q12.TCU cetirizine [All Day Allergy (cetirizine)] 10 mg tablet 10 mg PO DAILY PRN (Reason: allergy symptoms) metoprolol tartrate 100 mg Tablet 100 mg PO BID 30 Days Qty: 60 0RF amiodarone 200 mg Tablet 200 mg PO BID 30 Days Qty: 60 0RF Rx Instructions: Take 1 tablet twice daily for 7 days then take 1 tablet daily Eliquis 5 mg Tablet 5 mg PO BID 30 Days Qty: 60 0RF Changed lisinopril 10 mg tablet 5 mg PO DAILY Qty: 1 0RF Referrals / Follow Up: Bryan Rollins MD [Primary Care Provider, Medical] - Within 1 Week Disposition Disposition (needs filled in before D/C Order can be placed): Home, Self Care Charges/Coding Visit Charges Inpatient E&M: 56594 Disch Hosp >30min
== END 2025-03-30 13:45 | disposition home or self-care (01) | DRG 291 ==
LOC: ED 20:08 → PCU 20:46
PROVIDERS: Admitting Provider Internal Medicine; Emergency Provider Emergency Medicine; PCP Family Medicine; Visit Provider Family Medicine
DX: I11.0 Hypertensive heart disease with heart failure (principal); I50.31 Acute diastolic (congestive) heart failure; Z68.41 Body mass index [BMI] 40.0-44.9, adult; I48.20 Chronic atrial fibrillation, unspecified; E03.9 Hypothyroidism, unspecified; I95.9 Hypotension, unspecified; Z79.01 Long term (current) use of anticoagulants; I10 Essential (primary) hypertension; J45.909 Unspecified asthma, uncomplicated; E78.5 Hyperlipidemia, unspecified; M19.90 Unspecified osteoarthritis, unspecified site; R06.89 Other abnormalities of breathing; E66.813 Obesity, class 3; Z79.890 Hormone replacement therapy; Z79.899 Other long term (current) drug therapy; Z79.51 Long term (current) use of inhaled steroids
CPT/HCPCS: 36415; 71045; 71046; 71260; 80048; 80053; 81001; 83735; 83880; 84100; 84439; 84443; 84481; 84484; 85025; 87633; 93005; 94640; 94668; 99252; 99285; Q9967; A4216; G0463; J1938